=== PATIENT | female | born 1935 | race Caucasian/White ===

== ENCOUNTER 2020-04-07 12:51 | Inpatient (IN) | payer MEDICARE, SELFPAY ==
[2020-04-07] VITALS (27 sets, daily range): BP systolic 115–140; BP diastolic 46–79; PULSE 87–129; RESP 16–604; TEMP 36.9; O2SAT 74–100
--- NOTE | ~2020-04-07 | US_ITS ---
EXAMINATION: US renal BI DATE: 04/13/2020 15:33 INDICATION: Acute on chronic renal failure TECHNIQUE: Multiple grayscale and Doppler ultrasound images of the kidneys were obtained. COMPARISON: None. FINDINGS: The right kidney measures 7.8 x 3.0 x 4.0 cm. The left kidney measures 8.1 x 4.1 x 4.7 cm. The kidneys demonstrate normal parenchymal echogenicity. There is no hydronephrosis. The bladder is i ncompletely distended. IMPRESSION: 1. Mild atrophy of the kidneys. Reviewed, dictated and finalized at location B.
--- NOTE | ~2020-04-07 | XR_ITS ---
EXAMINATION: XR chest 1V portable INDICATION: PICC insertion TECHNIQUE: Portable AP chest at 1207 hours COMPARISON: 04/12/2020 FINDINGS: A right upper extremity PICC has been inserted which ends with its tip at the superior cavo atrial junction. The lungs are free of acute opacities. There is no pleural effusion or pneumothorax. The cardiomediastinal silhouette is stable. There are changes of prior cardiac surgery. IMPRESSION: 1. Right upper extremity with its tip at the superior cavoatrial junction. Reviewed, dictated and finalized at location B.
--- NOTE | ~2020-04-07 | XR_ITS ---
EXAMINATION: XR chest 1V portable DATE: 04/07/2020 14:06 INDICATION: Shortness of breath. Respiratory failure. TECHNIQUE: frontal view of the chest was obtained. COMPARISON: Chest radiograph dated 09/01/2016 FINDINGS: Diffuse increased interstitial pattern throughout both lungs with lower lung predominance. Superimpos ed gradient of hazy airspace opacity in the bilateral lower lobes with blunting at the right costophr enic angle consistent with likely small bilateral layering pleural effusions. No pneumothorax. The ca rdiomediastinal silhouette is normal. Median sternotomy wires and mediastinal surgical clips are seen , likely from prior coronary artery bypass grafting. Cardiac valve repair likely mitral. Three lead p acemaker seen with leads projecting over the expected locations of the right atrial appendage, apex o f the right ventricle and overlying the left ventricle likely having traversed the coronary sinus. IMPRESSION: 1. Bilateral lower lung predominant interstitial and airspace opacities most likely representing pulm onary edema superimposed over small bilateral pleural effusions and associated atelectasis although d ifferential includes pneumonia. Reviewed, dictated and finalized at location B. IMPRESSION: 1. Bilateral lower lung predominant interstitial and airspace opacities most li sabas representing pulmonary edema superimposed over small bilateral pleural eff usions and associated atelectasis although differential includes pneumonia.
--- NOTE | ~2020-04-07 | XR_ITS ---
EXAMINATION: XR chest 2V DATE: 04/12/2020 08:08 INDICATION: Congestive heart failure TECHNIQUE: AP and lateral views of the chest are obtained. COMPARISON: 04/07/2020 FINDINGS: A mild interstitial pattern persists but has improved, particularly in the lung bases. The heart size is normal. Changes of prior cardiac valve surgery are noted. There is no pleural effusion or pneumothorax. A triple lead cardiac pacemaker of the left chest wall ends with leads in expected l ocations. IMPRESSION: 1. Improving pulmonary edema. Reviewed, dictated and finalized at location A.
--- NOTE | 2020-04-07 13:00 | ED.SOB ---
HPI - SOB/Dyspnea History of Present Illness HPI Narrative: SOB all morning. Initially refused transport. She has COPD and CHF, on oxygen all the time at 3 liters. O2 saturation on baseline level in the 70s. No CP, fever. Related Data Home Medications Medication Instructions Recorded Confirmed Humulin R Regular U-100 Insuln See Rx Instructions .ROUTE .COMPLEX 04/07/20 04/07/20 acetaminophen 650 mg PO Q4-6H PRN 04/07/20 04/07/20 acidophilus-pectin, citrus 2 cap PO BID 04/07/20 04/07/20 [Acidophilus Probiotic] albuterol sulfate 2 puff INHALATION Q4H PRN 04/07/20 04/07/20 alum-mag hydroxide-simeth 30 ml PO Q8-10H PRN 04/07/20 04/07/20 amiodarone 200 mg PO BID 04/07/20 04/07/20 apixaban [Eliquis] 2.5 mg PO BID 04/07/20 04/07/20 diltiazem HCl 240 mg PO DAILY 04/07/20 04/07/20 glucagon HCl [Glucagon (HCl) 1 mg SUBCUT Q20M PRN 04/07/20 04/07/20 Emergency Kit] ipratropium-albuterol 3 ml INHALATION Q6H 04/07/20 04/07/20 levothyroxine 75 mcg PO DAILY 04/07/20 04/07/20 metoprolol tartrate 25 mg PO BID 04/07/20 04/07/20 nitroglycerin 0.4 mg SUBLINGUAL Q5MIN PRN 04/07/20 04/07/20 sennosides [Senna Lax] 17.2 mg PO HS PRN 04/07/20 04/07/20 tramadol 50 mg PO Q8H PRN 04/07/20 04/07/20 Allergies Allergy/AdvReac Type Severity Reaction Status Date / Time sulfamethoxazole Allergy Mild Unknown Verified 04/07/20 13:06 trimethoprim Allergy Mild Unknown Verified 04/07/20 13:06 cefazolin Allergy Unknown Unknown Verified 04/07/20 19:39 lisinopril Allergy Unknown Unknown Verified 04/07/20 13:06 metformin Allergy Unknown Unknown Verified 04/07/20 13:06 CEFAZOLIN SODIUM Allergy Unknown Unknown Uncoded 09/02/20 13:06 Contrast Media AdvReac Unknown NAUSEA Uncoded 09/20/18 12:23 Review of Systems Review of Systems: All systems reviewed & are unremarkable except as noted in HPI and below Constitutional: Constitutional: Denies fever(s) Cardiovascular: Cardiovascular: Denies chest pain Respiratory: Respiratory: Reports dyspnea and Reports wheezing Gastrointestinal: Gastrointestinal: Denies abdominal pain, Denies nausea and Denies vomiting Genitourinary: Genitourinary: Denies dysuria Neurologic: Denies confusion [facility] Past Medical History Medical History (Updated 04/08/20 @ 21:36 by Nigel Jurado MD) Atrial fibrillation CHF (congestive heart failure) COPD (chronic obstructive pulmonary disease) HTN (hypertension) Surgical History Surgical History (Updated 04/07/20 @ 13:16 by Nigel Jurado MD) H/O mitral valve repair Family History Family History (Updated 04/07/20 @ 17:44 by Camelia Gaviria RN) Mother Dementia Father Kidney disease Social History Social History (Updated 04/07/20 @ 13:16 by Nigel Jurado MD) Smoking status: Never smoker Alcohol intake: never Substance use: never Substance use type: does not use Living arrangements: correction Spiritual care concerns: No Exam Const: General: alert and ill appearing acutely and chronically Orientation/consciousness: patient oriented x3 HENMT: Head: normal to inspection Resp: Effort & Inspection: labored and tachypneic Auscultation: rales and wheezes Cardio: Rate: regular rate Rhythm: regular rhythm Other: distant GI: GI Palp: Yes Soft to palpation and No Tenderness to palpation present (GI) Skin: General skin exam: normal color Neuro: General: patient oriented x3 and moves all extremities Speech: normal speech Extrem: General: edema bilateral (2-3+) Course Vital Signs Vital signs: Vital Signs Respiratory Rate 24 H 04/07/20 12:56 Blood Pressure 122/79 04/07/20 12:56 Pulse Oximetry 74 L 04/07/20 12:56 Temperature 36.2 C L 04/08/20 14:00 Pulse Rate 100 04/08/20 20:18 Respiratory Rate 20 04/08/20 14:00 Blood Pressure 107/55 L 04/08/20 14:00 Pulse Oximetry 95 04/08/20 21:19 MDM - SOB/Dyspnea MDM Narrative Medical decision making narrative: Likely combined COPD/CHF exacerbation. Cannot
[2020-04-07] MEDS: IPRATROPIUM BR 0.02% INH SOLN 0.5 MG/2.5 ML VIAL INHALATION (13:34)
[2020-04-07] MEDS: ALBUTEROL SULFATE NEB 2.5 MG/0.5 ML INH 5 MG INHALATION (13:34)
[2020-04-07 13:39] LABS: Alveolar/Arterial O2 Gradient 157.7 mmHg; Base Excess ABG 0.1 mEq/l (+/-2.0); Fractional Inspired Oxygen 44 %; HCO3 ABG 22.8 mEq/l (22.0-26.0); Oxygen Content ABG 18.2 %vol (16.0-22.0); Oxygen Saturation ABG 98.6 % (95.0-100.0); Oxyhemoglobin 97.1 % THb (90.0-100.0); PCO2 ABG 31.4 mmHg (35.0-45.0); PO2 ABG 120.2 mmHg (80.0-100.0); PO2 FiO2 Ratio Arterial Blood 2.73 %; Total Hemoglobin 13.2 g/dL (12.0-18.0); pH ABG 7.479 (7.350-7.450)
[2020-04-07 13:40] LABS: Device NASAL CANNULA; Modified Allen's Test Pass; Site Drawn LEFT RADIAL
[2020-04-07] MEDS: FUROSEMIDE INJ 40 MG/4 ML VIAL IV PUSH ×2 (13:44→23:05)
[2020-04-07] MEDS: methylPREDNISolone SOD SUCC 125 MG VIAL IV PUSH (13:45)
[2020-04-07 13:48] LABS: Basophils Absolute Auto 0.1 K/mm3 (0.0-0.1); Basophils Percent Auto 0.6 % (0.2-1.2); Eosinophils Absolute Auto 0.8 K/mm3 (0-0.3); Eosinophils Percent Auto 4.7 % (0-4.4); Hematocrit 35.9 % (37.0-47.0); Hemoglobin 11.6 g/dL (12.0-15.0); Immature Granulocyte Absolute 0.11 K/mm3 (0.00-0.031); Immature Granulocyte Percent A 0.7 % (0-0.5); Lymphocytes Absolute Auto 0.91 K/mm3 (0.9-3.2); Lymphocytes Percent Auto 5.6 % (18.3-44.2); Mean Corpuscular HGB Conc 32.3 g/dl (32-36); Mean Corpuscular Volume 92.8 fl (80-100); Mean Platelet Volume 11.6 fl (7.4-10.4); Monocytes Absolute Auto 0.8 K/mm3 (0.1-0.6); Monocytes Percent Auto 4.7 % (2.6-8.5); Neutrophils Absolute Auto 13.7 K/mm3 (1.3-6.7); Neutrophils Percent Auto 83.7 % (45.5-73.1); Platelet Count Result 147 k/mm3 (150-375); Red Blood Count 3.87 M/mm3 (4.2-5.4); Red Cell Distribution Width 15.9 % (11.5-14.5); White Blood Count 16.4 K/mm3 (4.5-10.0)
[2020-04-07 13:59] LABS: INR 2.1; Partial Thromboplastin Time 36.7 SECONDS (22.3-36.8); Prothrombin Time 22.7 Seconds (11.1-14.7)
[2020-04-07 14:01] LABS: Lactic Acid Reflex 1.5 mmol/L (0.7-2.1)
[2020-04-07 14:07] LABS: Alanine Aminotransferase 18 U/L (4-35); Albumin Level 2.9 g/dL (3.5-5.1); Alkaline Phosphatase 115 U/L (38-126); Anion Gap 6 mmol/L (8-16); Aspartate Amino Transferase 35 U/L (14-36); Bilirubin,Total 1.3 mg/dL (0.2-1.3); Blood Urea Nitrogen 16 mg/dL (7-17); Calcium 8.4 mg/dL (8.4-10.2); Carbon Dioxide 25 mmol/L (22-30); Chloride 101 mmol/L (98-107); Estimated CRCL calculation 42 ml/min; Estimated Glomerular Filt Rate 53; Glucose 96 mg/dL (65-105); Potassium 4.3 mmol/L (3.4-5.0); Sodium 132 mmol/L (137-145)
[2020-04-07 14:12] LABS: NT Pro B Type Natriuretic Pept 8720 PG/ML (5-100); Troponin I 0.024 ng/mL (0.000-0.034)
[2020-04-07 14:15] LABS: Add Urine Microscopic? YES; Appearance Urine Cloudy (Clear); Bacteria Urine Trace /hpf; Bilirubin Urine 1+ (Negative); Blood Urine 3+ (Negative); Budding Yeast Urine Present /hpf; Color Urine Amber (Yellow); Glucose Urine UA Negative (Negative); Ketones Urine Negative (Negative); Leukocyte Esterase Ur 2+ LEU/UL (Negative); Nitrate Urine Negative (Negative); Protein Urine 2+ mg/dL (Negative); RBC Urine >75 /hpf (0-2); Squamous Epithelial Cell Urine Moderate /hpf (Few); WBC Urine >75 /hpf
[2020-04-07 14:19] LABS: CRP 15.4 mg/dL (<1.0)
--- NOTE | 2020-04-07 15:13 | ECG_ITS ---
Measurements Intervals [place] Rate: 55 P: 206 NM: 145 QRS: 28 QRSD: 161 T: 67 QT: 446 QTc: 427 Interpretive Statements ELECTRONIC ATRIAL PACEMAKER ELECTRONIC VENTRICULAR PACEMAKER BASELINE ARTIFACT- I, II, AVR, AVL, AVF NO FURTHER INTERPRETATION IS POSSIBLE ATYPICAL ECG Electronically Signed On 04-07-2020 16:40:40 CDT by Prasad Ohara D.O.
--- NOTE | 2020-04-07 15:19 | PC.NURSE ---
Pharmacy request clarification on order for ceftriaxone administration due to reported cephazolin allergy. Per Dr. Jurado, it is ok to go ahead with the ceftriaxone order. This was verbalized and verified with him and I reported this to the pharmacy at this time.
--- NOTE | 2020-04-07 17:21 | PC.NURSE ---
This patient, Renu Harvey, was admitted to 3 Med Surg Room 330-01 on 04/07/20 @ 1705. Patient/family oriented to hospital policies and general routines including ID bracelet, bed and alarms, visiting hours, pain management, procedures, bathroom and other care routines, personal items, smoking policy, room service/diet, and visiting hours. Valuables list has been completed. Information on how to activate the Rapid Response Team has been discussed. Patient/Family are encouraged to report perceived risks to care and to ask questions if they do not understand what they are told or what they should do.
--- NOTE | 2020-04-07 19:39 | PM.IMHP ---
H&P: HPI History of Present Illness Date/Time: 04/07/20 19:39 Chief complaint: Acute on chronic respiratory failure, CHF exacerba Narrative: This is a pleasant obese Diabetic 84 year old female with known Chronic respiratory failure on 3L of oxygen, COPD, HTN, paroxysmal atrial fibrillation on Amiodarone and Eliquis who presented to the hospital from the sn[facility] after developing worsening shortness of breath this morning, wheezing, and desaturating down to the 80s. The patient was recently hospitalized a few weeks ago after suffering a fall and describes that she still has some right hip discomfort although no one has discovered any fracture. Tonight the patient states that she has a sporadic nonproductive cough but has not had any fevers or chills recently. She denies any chest pain, abdominal pain, nausea, vomiting, diarrhea, or worsening LE swelling. She has had an indwelling Alonso catheter in place since her last hospitalization about 1 month ago although she cannot tell me why this was placed. Routine labs were obtained in the ER tonight which demonstrated leukocytosis of 16,400, grossly abnormal urinalysis, and CXR demonstrated bilateral lower lung predominant interstitial and airspace opacities. The patient was started on antibiotics and swabbed for COVID-19. She denies having any recent COVID testing and denies having pneumonia during her most recent hospitalization. She denies any sick contacts but is at the snf. No other complaints. Review of Systems Review of Systems: All systems reviewed & are unremarkable except as noted in HPI and below PMFSH Past Medical History Medical History Atrial fibrillation CAD (coronary artery disease) CHF (congestive heart failure) COPD (chronic obstructive pulmonary disease) HTN (hypertension) Pacemaker Type 2 diabetes mellitus with hyperglycemia, without long-term current use of insulin Surgical History Surgical History H/O mitral valve repair Family History Family History Mother Dementia Father Kidney disease Social History Social History Smoking status: Never smoker Alcohol intake: never Substance use: never Substance use type: does not use Living arrangements: snf Spiritual care concerns: No Meds Home Medications and Allergies Home Medications Medication Instructions Recorded Confirmed Type Eliquis 2.5 mg PO BID 04/07/20 04/07/20 History Glucagon (HCl) Emergency Kit 1 mg SUBCUT Q20M PRN 04/07/20 04/07/20 History Humulin R Regular U-100 Insuln See Rx Instructions .ROUTE .COMPLEX 04/07/20 04/07/20 History acetaminophen 650 mg PO Q4-6H PRN 04/07/20 04/07/20 History acidophilus-pectin, citrus 2 cap PO BID 04/07/20 04/07/20 History [Acidophilus Probiotic] albuterol sulfate 2 puff INHALATION Q4H PRN 04/07/20 04/07/20 History alum-mag hydroxide-simeth 30 ml PO Q8-10H PRN 04/07/20 04/07/20 History amiodarone 200 mg PO BID 04/07/20 04/07/20 History diltiazem HCl 240 mg PO DAILY 04/07/20 04/07/20 History ipratropium-albuterol 3 ml INHALATION Q6H 04/07/20 04/07/20 History levothyroxine 75 mcg PO DAILY 04/07/20 04/07/20 History metoprolol tartrate 25 mg PO BID 04/07/20 04/07/20 History nitroglycerin 0.4 mg SUBLINGUAL Q5MIN PRN 04/07/20 04/07/20 History sennosides [Senna Lax] 17.2 mg PO HS PRN 04/07/20 04/07/20 History tramadol 50 mg PO Q8H PRN 04/07/20 04/07/20 History ampicillin sodium 1 g IV Q4HR #10 each 04/15/20 Rx ceftriaxone 1 g IV Q24H #10 each 04/15/20 Rx furosemide 40 mg PO DAILY #30 tablet 04/15/20 Rx Allergies Allergy/AdvReac Type Severity Reaction Status Date / Time sulfamethoxazole Allergy Mild Unknown Verified 04/07/20 13:06 trimethoprim Allergy Mild Unknown Verified 04/07/20 13:06 cefazolin Allergy Unknown
[2020-04-07] MEDS: ALBUTEROL SULFATE (*SP) AEROSOL 1 PUFF 2 PUFF INHALATION (20:22)
[2020-04-07 20:30] LABS: Alveolar/Arterial O2 Gradient 176.5 mmHg; Base Excess ABG -3.8 mEq/l (+/-2.0); Fractional Inspired Oxygen 40 %; HCO3 ABG 18.9 mEq/l (22.0-26.0); Oxygen Content ABG 21.6 %vol (16.0-22.0); Oxygen Saturation ABG 95.7 % (95.0-100.0); Oxyhemoglobin 94.2 % THb (90.0-100.0); PCO2 ABG 29.1 mmHg (35.0-45.0); PO2 ABG 75.2 mmHg (80.0-100.0); PO2 FiO2 Ratio Arterial Blood 1.88 %; Total Hemoglobin 16.3 g/dL (12.0-18.0); pH ABG 7.431 (7.350-7.450)
[2020-04-07 20:31] LABS: Device NASAL CANNULA; Modified Allen's Test Pass; Site Drawn LEFT RADIAL
[2020-04-07] MEDS: METOPROLOL TARTRATE 25 MG TABLET PO (22:00)
[2020-04-07] MEDS: APIXABAN 2.5 MG TABLET PO (22:00)
[2020-04-07] MEDS: AMIODARONE HCL 200 MG TABLET PO (22:00)
[2020-04-07] MEDS: traMADol HCL 50 MG TABLET PO (23:26)
[2020-04-07 23:53] LABS: Glucose Point of Care 260 (65-105)
[2020-04-08] VITALS (12 sets, daily range): BP systolic 107–118; BP diastolic 55–59; PULSE 68–104; RESP 20; TEMP 36.2–37.1; O2SAT 95–100
[2020-04-08 00:42] LABS: SARS-CoV-2 RNA PCR Negative
--- NOTE | 2020-04-08 06:06 | PC.NURSE ---
Relocated to room 300 per hospital bed. Belongings sent and verified.
[2020-04-08 07:04] LABS: Basophils Percent Auto 0.3 % (0.2-1.2); Eosinophils Percent Auto 0.1 % (0-4.4); Hemoglobin 10.6 g/dL (12.0-15.0); Immature Granulocyte Absolute 0.06 K/mm3 (0.00-0.031); Immature Granulocyte Percent A 0.5 % (0-0.5); Immature Platelet Fraction Pct 7.2 % (0.9-11.2); Lymphocytes Absolute Auto 0.48 K/mm3 (0.9-3.2); Lymphocytes Percent Auto 3.8 % (18.3-44.2); Mean Corpuscular HGB Conc 33.1 g/dl (32-36); Mean Corpuscular Hemoglobin 30.3 pg (26-34); Mean Corpuscular Volume 91.4 fl (80-100); Mean Platelet Volume 11.4 fl (7.4-10.4); Monocytes Absolute Auto 0.4 K/mm3 (0.1-0.6); Monocytes Percent Auto 2.8 % (2.6-8.5); Neutrophils Absolute Auto 11.8 K/mm3 (1.3-6.7); Neutrophils Percent Auto 92.5 % (45.5-73.1); Platelet Count Result 136 k/mm3 (150-375); Red Cell Distribution Width 15.2 % (11.5-14.5); White Blood Count 12.7 K/mm3 (4.5-10.0)
[2020-04-08 07:18] LABS: Anion Gap 7 mmol/L (8-16); Blood Urea Nitrogen 21 mg/dL (7-17); Calcium 8.1 mg/dL (8.4-10.2); Carbon Dioxide 25 mmol/L (22-30); Chloride 100 mmol/L (98-107); Estimated CRCL calculation 42 ml/min; Estimated Glomerular Filt Rate 53; Glucose 178 mg/dL (65-105); Magnesium 1.6 mg/dL (1.6-2.3); Potassium 3.7 mmol/L (3.4-5.0); Sodium 132 mmol/L (137-145)
[2020-04-08] MEDS: LEVOTHYROXINE SODIUM 75 MCG TABLET PO (07:22)
[2020-04-08 07:55] LABS: Glucose Point of Care 163 (65-105)
[2020-04-08] MEDS: AMIODARONE HCL 200 MG TABLET PO ×2 (08:20→17:55)
[2020-04-08] MEDS: METOPROLOL TARTRATE 25 MG TABLET PO ×2 (08:21→20:18)
[2020-04-08] MEDS: APIXABAN 2.5 MG TABLET PO ×2 (08:21→17:55)
[2020-04-08] MEDS: FUROSEMIDE INJ 40 MG/4 ML VIAL IV PUSH ×2 (08:21→20:18)
[2020-04-08] MEDS: DEXAMETHASONE SOD PHOS INJ 4 MG/ML VIAL 6 MG IV PUSH (08:21)
[2020-04-08] MEDS: traMADol HCL 50 MG TABLET PO (08:30)
[2020-04-08] MEDS: ALBUTEROL SULFATE (*SP) AEROSOL 1 PUFF 2 PUFF INHALATION ×4 (08:42→21:17)
[2020-04-08 09:10] LABS: Glucose Point of Care 153 (65-105)
[2020-04-08] MEDS: ACIDOPHILUS/BULGARICUS CHEWABLE TABLET 1 TABLET PO ×2 (12:01→18:54)
[2020-04-08] MEDS: INSULIN ASPART (*BKC) 100 UNITS/ML SUB-Q ×2 (12:04→17:55)
[2020-04-08 12:33] LABS: Glucose Point of Care 258 (65-105)
--- NOTE | 2020-04-08 13:46 | PM.IMPN ---
Progress Note: A&P Assessment and Plan (1) Acute and chronic respiratory failure: Qualifiers: Respiratory failure complication: hypoxia Qualified Code(s): J96.21 - Acute and chronic respiratory failure with hypoxia Code(s): J96.20 - Acute and chronic respiratory failure, unspecified whether with hypoxia or hypercapnia Status: Acute Assessment and Plan: Continue oxygen breathing treatment and IV ABX pt has underlying COPD. COVID ruled out. Cxr shows BL opacities. [facility] [id number] (2) Catheter-associated urinary tract infection: Qualifiers: Encounter type: initial encounter Indwelling urinary catheter type: indwelling urethral catheter Qualified Code(s): T83.511A - Infection and inflammatory reaction due to indwelling urethral catheter, initial encounter; N39.0 - Urinary tract infection, site not specified Code(s): T83.511A - Infection and inflammatory reaction due to indwelling urethral catheter, initial encounter; N39.0 - Urinary tract infection, site not specified Status: Acute Assessment and Plan: Pt has catheter in situ dark urine collection small amount of blood (3) CAP (community acquired pneumonia): Code(s): J18.9 - Pneumonia, unspecified organism Status: Acute Assessment and Plan: Continue iv rocephin and iv zithromycin. bc and uc pending. Additional Plan Subjective Date/time seen: 04/08/20 13:46 Interval history: 84 year old female with known Chronic respiratory failure on 3L of oxygen, COPD, HTN, paroxysmal atrial fibrillation, DM on Amiodarone and Eliquis who [facility] the [facility] after developing worsening shortness of breath this morning, wheezing, and desaturating down to the 80s. Covid is negative. Still SOB with cough needing 5 liters of oxygen, pt has a ashraf catheter with dark urine little blood stained. Pt complains of her hip pain wanting more stronger pain medications. Review of Systems Review of Systems: All systems reviewed & are unremarkable except as noted in HPI and below Constitutional: Constitutional: Denies excessive sweating, Denies fatigue, Denies frequent falls and Denies headache(s) ENT: Denies headache(s) Cardiovascular: Cardiovascular: Denies chest pain Respiratory: Respiratory: Reports cough, Reports dyspnea and Reports wheezing Gastrointestinal: Gastrointestinal: Denies abdominal pain, Denies nausea and Denies vomiting Genitourinary: Genitourinary: Reports dysuria Comments: catheter in situ Musculoskeletal: Musculoskeletal: Denies no additional musculoskeletal complaints, Denies limited range of motion and Denies numbness Comments: hip pain Neurologic: Denies frequent falls, Denies headache(s), Denies numbness and Denies convulsions Psychiatric: Psychiatric: Denies hallucinations and Denies tactile hallucinations Endocrine: Endocrine: Denies excessive sweating, Denies fatigue and Denies flushing Allergic/Immunologic: Allergic/Immunologic: Denies wheezing Exam Const: General: cooperative and healthy appearing Nutritional Appearance: overweight Orientation/consciousness: oriented to person Other: Mild distress wearing oxygen HENMT: Head: normal to inspection Eyes: Other: Mildly sob at rest with cough Neck: Neck: no JVD Resp: Effort & Inspection: no respiratory distress Auscultation: rhonchi, wheezes and diminished lung sounds Cardio: Rate: regular rate Rhythm: regular rhythm GI: Inspection: normal to inspection GI Palp: No abdominal tenderness, No Guarding due to palpation present (GI) and No Hepatomegaly present Auscultation: normal bowel sounds Urinary Catheter: Urinary Catheter: patent and draining, urine dark and urine red Neuro: General: oriented to person Cognition (Neuro): normal cognition Speech: normal speech Psych: Affect: normal affect Objective Data Vital Signs Vital Signs: Vital Signs - 24 hr 04/07/20 13:50 04/07/20 14:
--- NOTE | 2020-04-08 14:02 | PM.IMPN ---
Subjective Date/time seen: 04/08/20 14:02 Objective Data Vital Signs Vital Signs: Vital Signs - 24 hr 04/07/20 14:15 04/07/20 14:30 04/07/20 14:45 Temperature Pulse Rate 95 89 92 Respiratory Rate 29 H 28 H 32 H Blood Pressure Pulse Oximetry 98 99 04/07/20 15:00 04/07/20 15:01 04/07/20 15:15 Temperature Pulse Rate 89 88 87 Respiratory Rate 25 H 25 H 25 H Blood Pressure 125/56 L Pulse Oximetry 04/07/20 15:30 04/07/20 15:31 04/07/20 15:45 Temperature Pulse Rate 90 91 91 Respiratory Rate 26 H 17 23 H Blood Pressure 130/56 L Pulse Oximetry 04/07/20 16:00 04/07/20 16:01 04/07/20 16:15 Temperature Pulse Rate 93 93 92 Respiratory Rate 32 H 20 30 H Blood Pressure 130/63 Pulse Oximetry 04/07/20 16:30 04/07/20 16:31 04/07/20 16:45 Temperature Pulse Rate 93 98 93 Respiratory Rate 22 H 22 H 23 H Blood Pressure 124/68 Pulse Oximetry 04/07/20 17:05 04/07/20 17:11 04/07/20 19:35 Temperature 36.9 C Pulse Rate 95 93 Respiratory Rate 20 16 Blood Pressure 140/66 124/68 Pulse Oximetry 96 96 04/07/20 20:00 04/07/20 20:20 04/07/20 22:00 Temperature 36.9 C Pulse Rate 88 88 Respiratory Rate 20 Blood Pressure 134/46 L Pulse Oximetry 96 95 04/08/20 00:00 04/08/20 04:00 04/08/20 08:00 Temperature 36.9 C 37.1 C Pulse Rate 92 80 86 Respiratory Rate 20 20 Blood Pressure 118/59 L 114/57 L Pulse Oximetry 97 97 04/08/20 08:44 04/08/20 12:00 Temperature Pulse Rate 95 Respiratory Rate Blood Pressure Pulse Oximetry 95 Intake/Output Intake/Output: Intake & Output 04/05/20 04/06/20 04/07/20 04/08/20 23:59 23:59 23:59 23:59 Intake Total 300 590 Output Total 125 2300 Balance 175 -1710 Meds/Results Medications: Active Medications Generic Name Dose Route Start Last Admin Trade Name Freq PRN Reason Stop Dose Admin Acetaminophen 650 mg 04/07/20 19:45 Tylenol Tablet PO Q4H PRN Mild Pain (1-3) or Fever Al Hydrox/Mg Hydrox/Simethicone 30 ml 04/07/20 19:46 Mylanta PO Q8H PRN Dyspepsia Albuterol 2 puff 04/07/20 20:00 04/08/20 12:13 Proventil Hfa INHALATION 2 puff QIDRT JUAN DIEGO Administration Albuterol 2 puff 04/07/20 19:14 Proventil Hfa INHALATION QIDRT PRN Shortness Of Breath Amiodarone HCl 200 mg 04/07/20 17:00 04/08/20 08:20 Pacerone PO 200 mg BID JUAN DIEGO Administration Apixaban 2.5 mg 04/07/20 17:00 04/08/20 08:21 Eliquis PO 2.5 mg BID JUAN DIEGO Administration Dexamethasone Sodium Phosphate 6 mg 04/08/20 09:00 04/08/20 08:21 Decadron 4 Mg/Ml Inj IV PUSH 04/17/20 09:01 6 mg QAM JUAN DIEGO Administration Dextrose 12.5 gm 04/07/20 19:37 Dextrose 50% Syringe IV PUSH PRN PRN Hypoglycemia Protocol Diltiazem HCl 240 mg 04/08/20 09:00 04/08/20 08:20 Cardizem Cd PO 240 mg DAILY JUAN DIEGO Administration Furosemide 40 mg 04/07/20 21:00 04/08/20 08:21 Lasix Inj IV PUSH 40 mg Q12HR JUAN DIEGO Administration Glucagon 1 mg 04/07/20 19:37 Glucagon For Inj IM PRN PRN Hypoglycemia Protocol Glucose 15 gm 04/07/20 19:37 Glutose 15 PO PRN PRN Hypoglycemia Protocol Ceftriaxone Sodium/Dextrose 1 gm in 50 mls @ 100 mls/hr 04/08/20 14:00 Rocephin 1 Gm/D5w 50 Ml IVPB Q24H JUAN DIEGO Azithromycin 500 mg in 250 mls @ 250 mls/hr 04/08/20 14:00 04/08/20 13:41 Zithromax IVPB 250 mls/hr Q24H JUAN DIEGO Administration Dextrose 1,000 mls @ 100 mls/hr 04/07/20 19:37 Dextrose 5% 1,000 Ml IVPB PRN PRN Hypoglycemia Protocol Sodium Chloride 1,000 mls @ 70 mls/hr 04/08/20 14:00 Normal Saline Iv IV CONT .[id number] JUAN DIEGO Insulin Aspart 3 - 6 units 04/08/20 08:00 04/08/20 12:04 Novolog SUB-Q 4 units TIDWM JUAN DIEGO Administration Protocol Lactobacillus Acidophilus 1 tablet 04/08/20 09:00 04/08/20 12:01 Lactinex Chewable Tablet PO 05/08/20
[2020-04-08] MEDS: SODIUM CHLORIDE 0.9% IV 1,000 ML 70 ML IV CONT (16:25)
[2020-04-08 17:44] LABS: Glucose Point of Care 239 (65-105)
[2020-04-08] MEDS: ZOLPIDEM TARTRATE 5 MG TABLET PO (21:36)
[2020-04-08 21:39] LABS: Glucose Point of Care 234 (65-105)
[2020-04-09] VITALS (14 sets, daily range): BP systolic 120–122; BP diastolic 56–60; PULSE 80–98; RESP 20–22; TEMP 36.5–36.7; O2SAT 91–98
[2020-04-09] MEDS: LEVOTHYROXINE SODIUM 75 MCG TABLET PO (05:40)
[2020-04-09] MEDS: ALBUTEROL SULFATE (*SP) AEROSOL 1 PUFF 2 PUFF INHALATION ×4 (07:58→19:55)
[2020-04-09] MEDS: ACIDOPHILUS/BULGARICUS CHEWABLE TABLET 1 TABLET PO ×2 (08:10→16:18)
[2020-04-09] MEDS: METOPROLOL TARTRATE 25 MG TABLET PO ×2 (08:10→20:17)
[2020-04-09] MEDS: APIXABAN 2.5 MG TABLET PO ×2 (08:10→16:18)
[2020-04-09] MEDS: AMIODARONE HCL 200 MG TABLET PO ×2 (08:10→16:18)
[2020-04-09] MEDS: DEXAMETHASONE SOD PHOS INJ 4 MG/ML VIAL 6 MG IV PUSH (08:11)
[2020-04-09] MEDS: FUROSEMIDE INJ 40 MG/4 ML VIAL IV PUSH (08:12)
[2020-04-09 09:14] LABS: Glucose Point of Care 156 (65-105)
[2020-04-09 11:48] LABS: Glucose Point of Care 196 (65-105)
--- NOTE | 2020-04-09 13:16 | PM.IMPN ---
Progress Note: A&P Assessment and Plan (1) Acute and chronic respiratory failure: Qualifiers: Respiratory failure complication: unspecified whether with hypoxia or hypercapnia Qualified Code(s): J96.20 - Acute and chronic respiratory failure, unspecified whether with hypoxia or hypercapnia Code(s): J96.20 - Acute and chronic respiratory failure, unspecified whether with hypoxia or hypercapnia Status: Acute Assessment and Plan: Continue oxygen breathing treatment and IV ABX pt has underlying COPD. COVID ruled out. Cxr shows BL opacities. [facility] [id number]. Pt is down to 3 liters of oxygen now, CXR ordered for radha, IV lasix and IV fluids stopped today (2) Catheter-associated urinary tract infection: Qualifiers: Indwelling urinary catheter type: indwelling urethral catheter Encounter type: initial encounter Qualified Code(s): T83.511A - Infection and inflammatory reaction due to indwelling urethral catheter, initial encounter; N39.0 - Urinary tract infection, site not specified Code(s): T83.511A - Infection and inflammatory reaction due to indwelling urethral catheter, initial encounter; N39.0 - Urinary tract infection, site not specified Status: Acute Assessment and Plan: Pt has catheter in situ dark urine collection. Entercoccus species awaiting sensitivities ? contamination (3) CAP (community acquired pneumonia): Code(s): J18.9 - Pneumonia, unspecified organism Status: Acute Assessment and Plan: Continue iv rocephin and iv zithromycin.. Entercoccus species awaiting sensitivities ? contamination Additional Plan Subjective Date/time seen: 04/09/20 13:16 Interval history: 84 year old female with known Chronic respiratory failure on 3L of oxygen, COPD, HTN, paroxysmal atrial fibrillation, DM on Amiodarone and Eliquis who [facility] after developing worsening shortness of breath this morning, wheezing, and desaturating down to the 80s. Covid is negative. Still SOB with cough. Pt is now on 3 liters of oxygen. ongoing wet cough and wheeze. Review of Systems Review of Systems: All systems reviewed & are unremarkable except as noted in HPI and below Constitutional: Constitutional: Denies excessive sweating, Denies fatigue, Denies frequent falls and Denies headache(s) ENT: Denies headache(s) Cardiovascular: Cardiovascular: Denies chest pain and Reports dyspnea Respiratory: Respiratory: Reports cough, Reports dyspnea and Denies wheezing Gastrointestinal: Gastrointestinal: Denies abdominal pain, Denies nausea and Denies vomiting Genitourinary: Genitourinary: Reports dysuria Musculoskeletal: Musculoskeletal: Denies no additional musculoskeletal complaints, Denies limited range of motion and Denies numbness Neurologic: Denies frequent falls, Denies headache(s), Denies numbness and Denies convulsions Psychiatric: Psychiatric: Denies hallucinations and Denies tactile hallucinations Exam Const: General: cooperative and other (elderly tired ) Orientation/consciousness: oriented to person Other: Mild distress wearing oxygen HENMT: Head: normal to inspection Eyes: Other: Mildly sob at rest with cough Neck: Neck: no JVD Resp: Auscultation: rhonchi, wheezes and diminished lung sounds Cardio: Rate: regular rate Rhythm: regular rhythm GI: Inspection: normal to inspection Auscultation: normal bowel sounds Urinary Catheter: Urinary Catheter: patent and draining and urine dark Neuro: General: oriented to person Cognition (Neuro): normal cognition Speech: normal speech Psych: Affect: normal affect Objective Data Vital Signs Vital Signs: Vital Signs - 24 hr 04/08/20 14:00 04/08/20 16:00 04/08/20 20:00 Temperature 36.2 C L Pulse Rate 68 69 80 Respiratory Rate 20 Blood Pressure 107/55 L Pulse Oximetry 97 04/08/20 20:18 04/08/20 21:19 04/08/20 22:00 Temperature 36.9 C Pulse Ra
[2020-04-09 17:34] LABS: Glucose Point of Care 271 (65-105)
[2020-04-09] MEDS: INSULIN ASPART (*BKC) 100 UNITS/ML SUB-Q (17:54)
[2020-04-09] MEDS: ZOLPIDEM TARTRATE 5 MG TABLET PO (20:17)
[2020-04-10] VITALS (17 sets, daily range): BP systolic 113–131; BP diastolic 46–64; PULSE 68–89; RESP 18–20; TEMP 36.3–36.9; O2SAT 93–97
[2020-04-10 02:04] LABS: Glucose Point of Care 271 (65-105)
[2020-04-10] MEDS: LEVOTHYROXINE SODIUM 75 MCG TABLET PO (05:19)
[2020-04-10 06:19] LABS: Hematocrit 32.7 % (37.0-47.0); Hemoglobin 10.5 g/dL (12.0-15.0); Mean Corpuscular HGB Conc 32.1 g/dl (32-36); Mean Corpuscular Hemoglobin 29.8 pg (26-34); Mean Corpuscular Volume 92.9 fl (80-100); Mean Platelet Volume 12.5 fl (7.4-10.4); Platelet Count Result 121 k/mm3 (150-375); Red Blood Count 3.52 M/mm3 (4.2-5.4); Red Cell Distribution Width 14.9 % (11.5-14.5)
[2020-04-10 06:51] LABS: Anion Gap 7 mmol/L (8-16); Blood Urea Nitrogen 34 mg/dL (7-17); Carbon Dioxide 27 mmol/L (22-30); Chloride 101 mmol/L (98-107); Estimated CRCL calculation 36 ml/min; Estimated Glomerular Filt Rate 43; Glucose 196 mg/dL (65-105); Sodium 135 mmol/L (137-145)
[2020-04-10 07:55] LABS: Potassium 3.2 mmol/L (3.4-5.0)
[2020-04-10] MEDS: ALBUTEROL SULFATE (*SP) AEROSOL 1 PUFF 2 PUFF INHALATION ×4 (08:11→20:05)
[2020-04-10 08:16] LABS: Glucose Point of Care 176 (65-105)
[2020-04-10] MEDS: AMIODARONE HCL 200 MG TABLET PO ×2 (08:35→17:27)
[2020-04-10] MEDS: APIXABAN 2.5 MG TABLET PO ×2 (08:36→17:28)
[2020-04-10] MEDS: DEXAMETHASONE SOD PHOS INJ 4 MG/ML VIAL 6 MG IV PUSH (08:36)
[2020-04-10] MEDS: FUROSEMIDE INJ 40 MG/4 ML VIAL 20 MG IV PUSH (08:37)
[2020-04-10] MEDS: ACIDOPHILUS/BULGARICUS CHEWABLE TABLET 1 TABLET PO ×2 (08:37→17:27)
[2020-04-10] MEDS: METOPROLOL TARTRATE 25 MG TABLET PO ×2 (08:37→20:15)
[2020-04-10] MEDS: AMPICILLIN SULB 3 GM/NS 100 ML 3 GM/100 ML VIAL IVPB ×4 (09:11→23:32)
--- NOTE | 2020-04-10 11:09 | PM.IMPN ---
Progress Note: A&P Assessment and Plan (1) Catheter-associated urinary tract infection: Qualifiers: Indwelling urinary catheter type: indwelling urethral catheter Encounter type: initial encounter Qualified Code(s): T83.511A - Infection and inflammatory reaction due to indwelling urethral catheter, initial encounter; N39.0 - Urinary tract infection, site not specified Code(s): T83.511A - Infection and inflammatory reaction due to indwelling urethral catheter, initial encounter; N39.0 - Urinary tract infection, site not specified Status: Acute Assessment and Plan: Enterococcus in urine and blood Switch from ceftriaxone to Unasyn 04/10 Voiding trial 04/10, straight cath PRN (urology to see if unable to void) (2) CHF (congestive heart failure): Qualifiers: Heart failure chronicity: acute Heart failure type: unspecified Qualified Code(s): I50.9 - Heart failure, unspecified Code(s): I50.9 - Heart failure, unspecified Status: Acute Assessment and Plan: Echo Diuresis Fluid restriction (3) Acute and chronic respiratory failure: Qualifiers: Respiratory failure complication: unspecified whether with hypoxia or hypercapnia Qualified Code(s): J96.20 - Acute and chronic respiratory failure, unspecified whether with hypoxia or hypercapnia Code(s): J96.20 - Acute and chronic respiratory failure, unspecified whether with hypoxia or hypercapnia Status: Acute Assessment and Plan: SARS-CoV-2 negative Likely due to CHF Continue diuresis while monitoring renal function (04/10 up from 1.0 to 1.2) (4) Bacteremia due to Enterococcus: Code(s): R78.81 - Bacteremia; B95.2 - Enterococcus as the cause of diseases classified elsewhere Status: Acute Assessment and Plan: Clinically due to catheter-associated UTI Ampicillin-sulbactam started 04/10, day 1 (5) Hypokalemia: Code(s): E87.6 - Hypokalemia Status: Acute Assessment and Plan: Likely due to diuresis Supplement F/u lab (6) Hyponatremia: Code(s): E87.1 - Hypo-osmolality and hyponatremia Status: Acute Assessment and Plan: Likely due to CHF Stop IVF Restrict fluids F/u lab Subjective Date/time seen: 04/10/20 11:09 Interval history: Admitted 04/08 with fatigue, weakness, sob. CXR with bilateral LL infiltrates, small effusions. Indwelling catheter for about 3 weeks due to urinary retention. Hx recent UTI. 04/10: Denied pain, except for aching in LE joints relieved by analgesics (chronic). Tolerated diet. Feeling a little better. Constipated. Review of Systems Review of Systems: All systems reviewed & are unremarkable except as noted in HPI and below Exam Narrative: Exam Narrative: HEENT: EOMI, PERRL, sclerae nonicteric, pharyngeal mucosa pink and intact NECK: No JVD CHEST: Bilateral LL crackles. Normal effort. HEART: NL S1/S2, regular, no murmur ABDOMEN: BS+, soft, nontender, no mass, no bruits EXTREMITIES: No cyanosis, 3+ leg edema with 1+ pitting NEUROLOGIC: CN intact and symmetric to inspection. MUSCULOSKELETAL: Tone and strength symmetric. PSYCH: Alert. Oriented to person, place, and time. Objective Data Vital Signs Vital Signs: Vital Signs - 24 hr 04/09/20 12:00 04/09/20 14:00 04/09/20 16:00 Temperature 98.0 F Pulse Rate 92 82 80 Respiratory Rate 22 H Blood Pressure 120/60 Pulse Oximetry 97 04/09/20 20:00 04/09/20 20:02 04/09/20 20:17 Temperature Pulse Rate 85 80 98 Respiratory Rate Blood Pressure Pulse Oximetry 94 04/09/20 21:51 04/09/20 22:00 04/10/20 00:00 Temperature 97.7 F Pulse Rate 81 81 89 Respiratory Rate 20 20 Blood Pressure 122/56 L Pulse Oximetry 94 95 04/10/20 04:00 04/10/20 06:00 04/10/20 08:00 Temperature 97.4 F L Pulse Rate 86 80 84 Respiratory Rate 20 Blood Pressure 131/64 Pulse Oximetry 93 04/10/20 08:09 04/10/20 08:35 04/10/20 08:37
[2020-04-10] MEDS: POTASSIUM CHLORIDE 20 MEQ TABLET 40 MEQ PO (12:01)
[2020-04-10] MEDS: INSULIN ASPART (*BKC) 100 UNITS/ML SUB-Q ×2 (12:06→17:57)
[2020-04-10 12:27] LABS: Glucose Point of Care 265 (65-105)
[2020-04-10 13:09] LABS: SARS-CoV-2 RNA PCR Negative
--- NOTE | 2020-04-10 13:54 | PCOTNOTE ---
OT attempted treatment this afternoon. Carmen reports she was finishing lunch and asked OT to come another time.
[2020-04-10] MEDS: POTASSIUM CHLORIDE 20 MEQ PACKET (FOR LIQUID) PO (17:28)
[2020-04-10 17:56] LABS: Glucose Point of Care 289 (65-105)
[2020-04-10] MEDS: SENNOSIDES 8.6 MG TABLET PO (20:15)
[2020-04-10] MEDS: ZOLPIDEM TARTRATE 5 MG TABLET PO (20:16)
[2020-04-10 21:43] LABS: Glucose Point of Care 273 (65-105)
[2020-04-11] VITALS (16 sets, daily range): BP systolic 123–138; BP diastolic 56–60; PULSE 78–97; RESP 18–20; TEMP 36.2–36.8; O2SAT 92–99
[2020-04-11] MEDS: AMPICILLIN SULB 3 GM/NS 100 ML 3 GM/100 ML VIAL IVPB (05:33)
[2020-04-11] MEDS: LEVOTHYROXINE SODIUM 75 MCG TABLET PO (05:35)
[2020-04-11 06:24] LABS: Hematocrit 32.5 % (37.0-47.0); Hemoglobin 10.5 g/dL (12.0-15.0); Mean Corpuscular HGB Conc 32.3 g/dl (32-36); Mean Corpuscular Hemoglobin 30.1 pg (26-34); Mean Corpuscular Volume 93.1 fl (80-100); Mean Platelet Volume 12.5 fl (7.4-10.4); Platelet Count Result 128 k/mm3 (150-375); Red Blood Count 3.49 M/mm3 (4.2-5.4); Red Cell Distribution Width 14.9 % (11.5-14.5); White Blood Count 9.4 K/mm3 (4.5-10.0)
[2020-04-11 06:58] LABS: Anion Gap 8 mmol/L (8-16); Blood Urea Nitrogen 35 mg/dL (7-17); Carbon Dioxide 27 mmol/L (22-30); Chloride 102 mmol/L (98-107); Estimated CRCL calculation 47 ml/min; Estimated Glomerular Filt Rate 60; Glucose 240 mg/dL (65-105); Magnesium 1.8 mg/dL (1.6-2.3); Potassium 3.4 mmol/L (3.4-5.0); Sodium 137 mmol/L (137-145)
[2020-04-11] MEDS: ALBUTEROL SULFATE (*SP) AEROSOL 1 PUFF 2 PUFF INHALATION ×4 (08:19→19:18)
[2020-04-11 08:57] LABS: Glucose Point of Care 188 (65-105)
[2020-04-11] MEDS: ACIDOPHILUS/BULGARICUS CHEWABLE TABLET 1 TABLET PO ×2 (08:57→17:55)
[2020-04-11] MEDS: SENNOSIDES 8.6 MG TABLET PO ×2 (08:57→20:17)
[2020-04-11] MEDS: CANAGLIFLOZIN 100 MG TABLET 200 MG PO (08:57)
[2020-04-11] MEDS: APIXABAN 2.5 MG TABLET PO ×2 (08:58→17:54)
[2020-04-11] MEDS: METOPROLOL TARTRATE 25 MG TABLET PO ×2 (08:58→20:18)
[2020-04-11] MEDS: AMIODARONE HCL 200 MG TABLET PO ×2 (08:58→17:53)
[2020-04-11] MEDS: POTASSIUM CHLORIDE 20 MEQ PACKET (FOR LIQUID) PO ×2 (08:59→17:53)
[2020-04-11] MEDS: INSULIN GLARGINE (*BKC) 100 UNITS/ML 8 UNITS SUB-Q (09:00)
[2020-04-11] MEDS: FUROSEMIDE INJ 40 MG/4 ML VIAL 20 MG IV PUSH ×2 (09:02→17:55)
--- NOTE | 2020-04-11 10:58 | PM.IMPN ---
Progress Note: A&P Assessment and Plan (1) Catheter-associated urinary tract infection: Qualifiers: Encounter type: initial encounter Indwelling urinary catheter type: indwelling urethral catheter Qualified Code(s): T83.511A - Infection and inflammatory reaction due to indwelling urethral catheter, initial encounter; N39.0 - Urinary tract infection, site not specified Code(s): T83.511A - Infection and inflammatory reaction due to indwelling urethral catheter, initial encounter; N39.0 - Urinary tract infection, site not specified Status: Acute Assessment and Plan: Enterococcus in urine and blood Switch from ceftriaxone to Unasyn 04/10, Ampicillin 04/11 DAY #2 Voiding trial 04/10 SUCCESSFUL (2) CHF (congestive heart failure): Qualifiers: Heart failure chronicity: acute Heart failure type: unspecified Qualified Code(s): I50.9 - Heart failure, unspecified Code(s): I50.9 - Heart failure, unspecified Status: Acute Assessment and Plan: Echo 04/12 Diuresis with furosemide 20mg IV BID (04/10 I/O still positive, but BUN/creat 35/0.9) Fluid restriction Monitor renal function (3) Acute and chronic respiratory failure: Qualifiers: Respiratory failure complication: unspecified whether with hypoxia or hypercapnia Qualified Code(s): J96.20 - Acute and chronic respiratory failure, unspecified whether with hypoxia or hypercapnia Code(s): J96.20 - Acute and chronic respiratory failure, unspecified whether with hypoxia or hypercapnia Status: Acute Assessment and Plan: SARS-CoV-2 negative Likely due to CHF Continue diuresis while monitoring renal function (04/10 up from 1.0 to 1.2, 04/11 creat 0.9) (4) Bacteremia due to Enterococcus: Code(s): R78.81 - Bacteremia; B95.2 - Enterococcus as the cause of diseases classified elsewhere Status: Acute Assessment and Plan: Clinically due to catheter-associated UTI Ampicillin-sulbactam started 04/10, day 1 (5) Hypokalemia: Code(s): E87.6 - Hypokalemia Status: Acute Assessment and Plan: Likely due to diuresis Supplement F/u lab (6) Hyponatremia: Code(s): E87.1 - Hypo-osmolality and hyponatremia Status: Acute Assessment and Plan: Likely due to CHF Stop IVF 04/10 Restrict fluids F/u lab (7) Type 2 diabetes mellitus with hyperglycemia, without long-term current use of insulin: Code(s): E11.65 - Type 2 diabetes mellitus with hyperglycemia Status: Acute Assessment and Plan: Intolerant to metformin 04/11 Add basal Lantus 8 U daily and Invokana 200mg daily Continue SSI A1c and Lipid panel 04/12 Subjective Date/time seen: 04/11/20 10:58 Interval history: Admitted 04/08 with fatigue, weakness, sob. CXR with bilateral LL infiltrates, small effusions. Indwelling catheter for about 3 weeks due to urinary retention. Hx recent UTI. 04/11: Urinary frequency with dysuria. Denied other pain, except for aching in LE joints relieved by analgesics (chronic). Tolerated diet. Feeling a little better. Constipated still. Review of Systems Review of Systems: All systems reviewed & are unremarkable except as noted in HPI and below Exam Narrative: Exam Narrative: HEENT: EOMI, PERRL, sclerae nonicteric, pharyngeal mucosa pink and intact NECK: No JVD CHEST: Decr BS at bases. Normal effort. HEART: NL S1/S2, regular, no murmur ABDOMEN: BS+, soft, nontender, no mass, no bruits EXTREMITIES: No cyanosis, 3+ leg edema with 1+ pitting NEUROLOGIC: CN intact and symmetric to inspection. MUSCULOSKELETAL: Tone and strength symmetric. PSYCH: Alert. Oriented to person, place, and time. Objective Data Vital Signs Vital Signs: Vital Signs - 24 hr 04/10/20 12:00 04/10/20 12:56 04/10/20 14:00 Temperature 98.4 F Pulse Rate 88 80 84 Respiratory Rate 20 18 Blood Pressure 113/46 L Pulse Oximetry 97 04/10/20 16:00 04/10/20 17:27 04/10/20 20:00 Tem
[2020-04-11] MEDS: AMPICILLIN 1 GM/NS 50 ML 1 GM/50 ML BAG IVPB ×3 (12:36→23:48)
[2020-04-11] MEDS: POTASSIUM CHLORIDE 20 MEQ TABLET 40 MEQ PO (12:40)
[2020-04-11] MEDS: INSULIN ASPART (*BKC) 100 UNITS/ML SUB-Q ×2 (12:40→17:56)
[2020-04-11 12:54] LABS: Glucose Point of Care 221 (65-105)
--- NOTE | 2020-04-11 16:05 | PCPTNOTE ---
Woke patient up, then, she refused treatment this session due to falling back to sleep.
[2020-04-11] MEDS: SENNOSIDES 8.6 MG TABLET 17.2 MG PO (20:17)
[2020-04-11] MEDS: traMADol HCL 50 MG TABLET PO (20:17)
[2020-04-12] VITALS (16 sets, daily range): BP systolic 114–150; BP diastolic 56–65; PULSE 77–101; RESP 16–22; TEMP 36.1–36.7; O2SAT 91–98
--- NOTE | 2020-04-12 | ECHO_ITS ---
Patient Info Name: Renu Harvey Age: 84 years : 1935 Gender: Female Ht: 67 in Wt: 182 lbs BSA: 2.00 m2 HR: 80 bpm BP: 155 / 74 mmHg Heart Rhythm: Sinus Rhythm Technical Quality: Good Exam Date: 04/12/2020 9:57 AM Exam Location: [facility] Patient Status: Inpatient Admit Date: 04/07/2020 Staff Ordering Physician: Lázaro Young MD Software Quality Specialist: Solo Hadley RDCS, RT Attending Provider: Suzi Valerio PA-C Referring Physician: Hector MORENO; Exam Type: CA echo doppler color flow Study Info Indications I50.9 - Heart failure, unspecified Complete two-dimensional, color flow and Doppler transthoracic echocardiogram is performed. Strain analysis performed. Summary 1. Complete two-dimensional, color flow and Doppler transthoracic echocardiogram is performed. 2. Strain analysis performed. 3. Left ventricular chamber dimension is normal. 4. Left ventricular systolic function is normal, estimated at 60-65%. 5. There is mildly increased left ventricular wall thickness. 6. The left ventricular diastolic function is abnormal. 7. Global longitudinal strain is abnormal at -13 %. 8. Right ventricular chamber dimension is severely enlarged. 9. Right ventricular systolic function is reduced. 10. Left atrial chamber dimension is severely enlarged. 11. Right atrial chamber dimension is severely enlarged. 12. 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 13. There is mild regurgitation of the annuloplasty ring prosthetic mitral valve. 14. There is moderate to severe tricuspid valve regurgitation. 15. Moderate pulmonary hypertension, estimated pulmonary arterial systolic pressure is 54 mmHg. 16. Moderate tricuspid valve vegetation visualized. 17. The tricuspid valve is abnormal. There appears to be a moderate sized vegetation associated with the tricuspid valve. This may also be attached to/associated with the pacemaker leads themselves. 18. There is mild pulmonic regurgitation. 19. Dilated inferior vena cava with no collapse upon inspiration consistent with elevated right atrial pressure, 15 mmHg. 20. Transesophageal echocardiogram is recommended. 21. Result of this finding was called to the nurse at 3:19 p.m. Left Ventricle Left ventricular chamber dimension is normal. Left ventricular systolic function is normal, estimated at 60-65%. There is mildly increased left ventricular wall thickness. The left ventricular diastolic function is abnormal. Global longitudinal strain is abnormal at -13 %. Right Ventricle Right ventricular chamber dimension is severely enlarged. Right ventricular systolic function is reduced. Left Atria Left atrial chamber dimension is severely enlarged. Right Atria Right atrial chamber dimension is severely enlarged. Atrial Septum Intact interatrial septum visualized by color flow imaging. Aortic Valve The aortic valve is trileaflet. There is mild aortic valve sclerosis. There is no aortic valve stenosis. There is trace aortic valve regurgitation. Pulmonic Valve The pulmonic valve is normal. There is no pulmonic valve stenosis. There is mild pulmonic regurgitation. 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 There is mild regurgitation of the annuloplasty ring prosthetic mitral valve. Tricuspid Valve There is no significant tricuspid valve stenosis. There is moderate to severe tricuspid valve regurgitation. Moderate pulmonary hypertensi
[2020-04-12 04:37] LABS: Glucose Point of Care 183 (65-105)
[2020-04-12 04:37] LABS: Glucose Point of Care 217 (65-105)
[2020-04-12] MEDS: AMPICILLIN 1 GM/NS 50 ML 1 GM/50 ML BAG IVPB ×3 (05:34→17:37)
[2020-04-12] MEDS: LEVOTHYROXINE SODIUM 75 MCG TABLET PO (05:34)
[2020-04-12 06:20] LABS: Hematocrit 34.7 % (37.0-47.0); Mean Corpuscular HGB Conc 31.7 g/dl (32-36); Mean Corpuscular Hemoglobin 29.8 pg (26-34); Mean Platelet Volume 12.4 fl (7.4-10.4); Platelet Count Result 155 k/mm3 (150-375); Red Blood Count 3.69 M/mm3 (4.2-5.4); Red Cell Distribution Width 15.4 % (11.5-14.5); White Blood Count 12.2 K/mm3 (4.5-10.0)
[2020-04-12 06:33] LABS: Anion Gap 4 mmol/L (8-16); Blood Urea Nitrogen 34 mg/dL (7-17); Calcium 8.2 mg/dL (8.4-10.2); Carbon Dioxide 30 mmol/L (22-30); Chloride 105 mmol/L (98-107); Cholesterol 151 mg/dL (0-200); Estimated CRCL calculation 42 ml/min; Estimated Glomerular Filt Rate 53; Glucose 151 mg/dL (65-105); HDL Direct 35 mg/dL; Sodium 139 mmol/L (137-145); Triglycerides 105 mg/dL (<150)
[2020-04-12 06:44] LABS: LDL Cholesterol Direct 96 mg/dL
[2020-04-12 07:02] LABS: Hemoglobin A1C 6.7 % (<5.7)
[2020-04-12] MEDS: ALBUTEROL SULFATE (*SP) AEROSOL 1 PUFF 2 PUFF INHALATION ×2 (08:17→11:37)
[2020-04-12 08:59] LABS: Glucose Point of Care 129 (65-105)
[2020-04-12] MEDS: POTASSIUM CHLORIDE 20 MEQ PACKET (FOR LIQUID) PO (09:13)
[2020-04-12] MEDS: SENNOSIDES 8.6 MG TABLET PO ×2 (09:14→19:56)
[2020-04-12] MEDS: CANAGLIFLOZIN 100 MG TABLET 200 MG PO (09:14)
[2020-04-12] MEDS: APIXABAN 2.5 MG TABLET PO ×2 (09:14→17:31)
[2020-04-12] MEDS: ACIDOPHILUS/BULGARICUS CHEWABLE TABLET 1 TABLET PO ×2 (09:14→17:31)
[2020-04-12] MEDS: METOPROLOL TARTRATE 25 MG TABLET PO ×2 (09:15→19:55)
[2020-04-12] MEDS: FUROSEMIDE INJ 40 MG/4 ML VIAL 20 MG IV PUSH (09:15)
[2020-04-12] MEDS: AMIODARONE HCL 200 MG TABLET PO ×2 (09:15→17:31)
[2020-04-12] MEDS: INSULIN GLARGINE (*BKC) 100 UNITS/ML 8 UNITS SUB-Q (09:19)
[2020-04-12 13:08] LABS: Glucose Point of Care 145 (65-105)
--- NOTE | 2020-04-12 13:08 | WPDINFPN2 ---
Progress Note: A&P Assessment and Plan (1) Bacteremia due to Enterococcus: Code(s): R78.81 - Bacteremia; B95.2 - Enterococcus as the cause of diseases classified elsewhere Status: Acute Assessment and Plan: 1. Enterococcus bacteremia, with infection, due to CA-UTI. 2. Recent (3 weeks) hip fracture with urinary retention, Alonso now out 3. DM 4. MV repair 05/25 at E 5. Ancef allergy REC Renal US. (antibiotic #3) Amp #2, at least 3 days more. Redo BCs. No aminoglycoside at present. Subjective Date/time seen: 04/12/20 13:08 Objective Data Vital Signs Vital Signs: Vital Signs - 24 hr 04/11/20 15:37 04/11/20 16:00 04/11/20 17:53 Temperature 36.2 C L Pulse Rate 80 80 86 Respiratory Rate 18 Blood Pressure 123/60 Pulse Oximetry 99 04/11/20 19:21 04/11/20 20:00 04/11/20 20:18 Temperature Pulse Rate 84 84 Respiratory Rate Blood Pressure Pulse Oximetry 95 04/11/20 21:13 04/11/20 21:55 04/12/20 00:00 Temperature 36.8 C Pulse Rate 86 79 80 Respiratory Rate 18 Blood Pressure 138/56 L Pulse Oximetry 92 97 04/12/20 01:21 04/12/20 04:00 04/12/20 06:00 Temperature 36.7 C Pulse Rate 80 77 79 Respiratory Rate 18 Blood Pressure 150/59 H Pulse Oximetry 93 98 04/12/20 08:00 04/12/20 08:17 04/12/20 09:15 Temperature Pulse Rate 85 80 100 Respiratory Rate 18 Blood Pressure Pulse Oximetry 94 Intake/Output Intake/Output: Intake & Output 04/09/20 04/10/20 04/11/20 04/12/20 23:59 23:59 23:59 23:59 Intake Total 2460 1060 1560 560 Output Total 1450 850 450 Balance 7055 769 4550 560 Meds/Results Medications: Active Medications Generic Name Dose Route Start Last Admin Trade Name Freq PRN Reason Stop Dose Admin Acetaminophen 650 mg 04/07/20 19:45 Tylenol Tablet PO Q4H PRN Mild Pain (1-3) or Fever Hydrocodone Bitart/Acetaminophen 1 tab 04/08/20 14:02 04/09/20 15:26 [place] 7.5-325 Mg PO 1 tab Q4H PRN Administration Pain Rated 7-10 Al Hydrox/Mg Hydrox/Simethicone 30 ml 04/07/20 19:46 Mylanta PO Q8H PRN Dyspepsia Albuterol 2 puff 04/07/20 20:00 04/12/20 11:37 Proventil Hfa INHALATION 2 puff QIDRT JUAN DIEGO Administration Albuterol 2 puff 04/07/20 19:14 Proventil Hfa INHALATION QIDRT PRN Shortness Of Breath Amiodarone HCl 200 mg 04/07/20 17:00 04/12/20 09:15 Pacerone PO 200 mg BID JUAN DIEGO Administration Apixaban 2.5 mg 04/07/20 17:00 04/12/20 09:14 Eliquis PO 2.5 mg BID JUAN DIEGO Administration Canagliflozin 200 mg 04/11/20 08:00 04/12/20 09:14 Invokana PO 200 mg DAILY@0800 JUAN DIEGO Administration Dextrose 12.5 gm 04/07/20 19:37 Dextrose 50% Syringe IV PUSH PRN PRN Hypoglycemia Protocol Diltiazem HCl 240 mg 04/08/20 09:00 04/12/20 09:14 Cardizem Cd PO 240 mg DAILY JUAN DIEGO Administration Furosemide 20 mg 04/11/20 09:00 04/12/20 09:15 Lasix Inj IV PUSH 20 mg BID JUAN DIEGO Administration Glucagon 1 mg 04/07/20 19:37 Glucagon For Inj IM PRN PRN Hypoglycemia Protocol Glucose 15 gm 04/07/20 19:37 Glutose 15 PO PRN PRN Hypoglycemia Protocol Dextrose 1,000 mls @ 100 mls/hr 04/07/20 19:37 Dextrose 5% 1,000 Ml IVPB PRN PRN Hypoglycemia Protocol Ampicillin Sodium 1 gm in 50 mls @ 100 mls/hr 04/11/20 12:00 04/12/20 12:31 Ampicillin 1 Gm/Ns 50 Ml IVPB 100 mls/hr Q6HR JUAN DIEGO Administration Insulin Aspart 3 - 6 units 04/08/20 08:00 04/12/20 12:33 Novolog SUB-Q Not Given TIDWM JUAN DIEGO Protocol Insulin Glargine 8 units 04/11/20 09:00 04/12/20 09:19 Lantus SUB-Q 8 units DAILY JUAN DIEGO Administration Lactobacillus Acidophilus 1 tablet 04/08/20 09:00 04/12/20 09:14 Lactinex Chewable Tablet PO 05/08/20 09:01 1 tablet BID JUAN DIEGO Administration Levothyroxine Sodium 75 mcg 04/08/20 06:30 04/12/20 05:34 Synthroid PO
--- NOTE | 2020-04-12 13:21 | PM.IMPN ---
Progress Note: A&P Assessment and Plan (1) Catheter-associated urinary tract infection: Qualifiers: Indwelling urinary catheter type: indwelling urethral catheter Encounter type: initial encounter Qualified Code(s): T83.511A - Infection and inflammatory reaction due to indwelling urethral catheter, initial encounter; N39.0 - Urinary tract infection, site not specified Code(s): T83.511A - Infection and inflammatory reaction due to indwelling urethral catheter, initial encounter; N39.0 - Urinary tract infection, site not specified Status: Acute Assessment and Plan: Enterococcus in urine and blood Switch from ceftriaxone to Unasyn 04/10, Ampicillin 04/11 DAY #2 Voiding trial 04/10 SUCCESSFUL Infectious disease was consulted for further evaluation and recommendations on antibiotics. Dr. graham recommended with her Enterococcus bacteremia and UTI she should have at least 3 more days of IV ampicillin. Possibly be discharged on . He is also going to order a renal ultrasound of the kidneys and bladder for further evaluation. Continue monitoring patient's symptoms and appreciate infectious disease recommendations. (2) Bacteremia due to Enterococcus: Code(s): R78.81 - Bacteremia; B95.2 - Enterococcus as the cause of diseases classified elsewhere Status: Acute Assessment and Plan: Clinically due to catheter-associated UTI Patient has been on ampicillin for 2 days which is sensitive to the Enterococcus UTI bacteremia Infectious Disease is on board and their input is greatly appreciated (3) CHF (congestive heart failure): Qualifiers: Heart failure type: unspecified Heart failure chronicity: acute Qualified Code(s): I50.9 - Heart failure, unspecified Code(s): I50.9 - Heart failure, unspecified Status: Acute Assessment and Plan: Echo results are currently pending in waiting interpretation by bath mix operator Patient states at home she is on Lasix 80 mg p.o. in the morning and supposed to be on 40 mg p.o. in the afternoon for which she does not take She had been receiving Lasix 20 mg IV b.i.d. but had still been remaining positive fluid balance and stable renal function I will increase Lasix today to 40 mg IV b.i.d. and continue monitoring fluid status and renal function. She is on a 2 L fluid restriction diet at this time as well Monitor renal function (4) Acute and chronic respiratory failure: Qualifiers: Respiratory failure complication: unspecified whether with hypoxia or hypercapnia Qualified Code(s): J96.20 - Acute and chronic respiratory failure, unspecified whether with hypoxia or hypercapnia Code(s): J96.20 - Acute and chronic respiratory failure, unspecified whether with hypoxia or hypercapnia Status: Acute Assessment and Plan: Presented with acute on chronic respiratory failure which was those likely secondary to acute CHF exacerbation SARS-CoV-2 negative She is now resting on her home oxygen which is 3 L via nasal cannula. Continue diuresis while monitoring renal function (5) Hypokalemia: Code(s): E87.6 - Hypokalemia Status: Acute Assessment and Plan: Likely due to diuresis Potassium is stable at this time Continue monitoring potassium daily and supplement as needed (6) Hyponatremia: Code(s): E87.1 - Hypo-osmolality and hyponatremia Status: Acute Assessment and Plan: Likely due to CHF. She was initially started on IV fluids which were discontinued and she was placed on fluid restriction IV Lasix therapy Sodium today was within normal limits. Continue checking sodium daily. (7) Type 2 diabetes
[2020-04-12] MEDS: POTASSIUM CHLORIDE 20 MEQ TABLET.ER PO (17:31)
[2020-04-12] MEDS: FUROSEMIDE INJ 40 MG/4 ML VIAL IV PUSH (17:32)
--- NOTE | 2020-04-12 18:13 | CONS_ITS ---
DATE OF CONSULTATION: 04/12/2020 REASON FOR CONSULTATION: Bacteremia. HISTORY OF PRESENT ILLNESS: The patient is an 84-year-old female who has had past urinary tract infections, but apparently not on a recurrent basis. She did have a bladder suspension procedure at about the age of 52, which was successful and done for prolapse by her description. She has had no previous bladder surgery otherwise, nor kidney surgery, knows of no kidney stones nor other obstruction. She had a fall and broke her right hip about 3 weeks prior to admission and was hospitalized at [facility]. She had urinary retention while there and a Alonso catheter was placed. She did not require any operative intervention for the fracture and was discharged to a custodial. She returned here to this hospital on April 07 with shortness of breath and rigors along with subjective fever. She had been afebrile here. Blood cultures were collected, now positive. She initially was given ceftriaxone and azithromycin along with a single dose of methylprednisolone, was changed to ampicillin sulbactam 2 days ago and to ampicillin yesterday. Consultation requested today. Her catheter has now been removed. She reports to me that she is emptying her bladder well. Although I's and O's are incomplete, she has had 450 mL urine output during the calendar day yesterday, 850 the previous day. She denies any dysuria or incontinence. She does have some residual suprapubic pain. No flank pain. No CVA pain. MEDICATIONS: Her home medication list included no antibiotics. ALLERGIES: CEFAZOLIN, UNKNOWN REACTION IN THE PAST. ALSO TRIMETHOPRIM SULFA, UNKNOWN REACTION. OTHERS NOT PERTINENT. HABITS: No tobacco. No alcohol. PRESENT MEDICATIONS: No ongoing immunosuppressants. PAST MEDICAL HISTORY: Mitral valve repair in May last year at [facility] requiring a sternotomy. She is unaware of the details of the repair. She also carries diagnosis of AF, CHF in the past, hypertension, COPD, and diabetes. FAMILY HISTORY: Dementia and kidney disease. SOCIAL HISTORY: Most recently in a custodial. She does have a son locally, previously lived at home and she is and retired. REVIEW OF SYSTEMS: Hip pain, especially with weightbearing. Easy fatigability, shortness of breath. 14-point review otherwise negative. PHYSICAL EXAMINATION: GENERAL: This is an elderly female who appears her actual age. No acute distress. VITAL SIGNS: Afebrile, 150/59, 79, 18, 98% on 3 L. SKIN: No generalized rashes. EENT: The conjunctivae are normal. Pupils equal, round, and reactive to light. The oropharynx, oral mucosa normal. NECK: No meningismus, mass, thyromegaly, or tenderness. LUNGS: Clear to auscultation. BACK: Tenderness in the left CVA region. CARDIAC: Regular rate and rhythm. No murmur, gallop, or rub. No heaves. She has a median sternotomy scar well healed. ABDOMEN: Soft, nondistended. Normal bowel sounds. No organomegaly. No masses. Nontender. EXTREMITIES: 1+ pitting edema both ankles. DIAGNOSTIC DATA: Chest x-ray performed on the 2nd with airspace opacities, suspected pulmonary edema. LABORATORY DATA: Blood cultures from admission, 2/2 sets, Enterococcus faecalis which was susceptible. A urine culture obtained the same time had similar susceptibilities, both to ampicillin and to vancomycin. Her white count today 12.2, was 16.4 on admission and 9.4 yesterday; hemoglobin 11; platelets are 155. Differential not repeated, earlier showed a minimal left shift. Blood gases 7.43, 29, 75, 19 on 5 L. She had hyponatremia, now corrected. BUN 34, creatinine 1. Her Accu-Cheks in the 100s to 200s. A1c 6.7%. BNP was high, CRP was high. Albumin 2.9. Urinalysis, kaye, cloudy, 5,
[2020-04-12] MEDS: SENNOSIDES 8.6 MG TABLET 17.2 MG PO (19:57)
[2020-04-12 20:04] LABS: Glucose Point of Care 135 (65-105)
[2020-04-12] MEDS: ALBUTEROL SULFATE NEB 2.5 MG/0.5 ML INH INHALATION (20:07)
[2020-04-12] MEDS: IPRATROPIUM BR 0.02% INH SOLN 0.5 MG/2.5 ML VIAL INHALATION (20:07)
[2020-04-12 21:30] LABS: Glucose Point of Care 169 (65-105)
[2020-04-13] VITALS (21 sets, daily range): BP systolic 112–145; BP diastolic 53–60; PULSE 77–96; RESP 16–22; TEMP 36.3–36.6; O2SAT 90–100
[2020-04-13] MEDS: AMPICILLIN 1 GM/NS 50 ML 1 GM/50 ML BAG IVPB ×4 (00:08→17:13)
[2020-04-13] MEDS: IPRATROPIUM BR 0.02% INH SOLN 0.5 MG/2.5 ML VIAL INHALATION ×4 (02:08→20:31)
[2020-04-13] MEDS: ALBUTEROL SULFATE NEB 2.5 MG/0.5 ML INH INHALATION ×4 (02:08→20:31)
[2020-04-13] MEDS: LEVOTHYROXINE SODIUM 75 MCG TABLET PO (05:46)
[2020-04-13 06:16] LABS: Basophils Absolute Auto 0.1 K/mm3 (0.0-0.1); Basophils Percent Auto 0.9 % (0.2-1.2); Eosinophils Absolute Auto 2.1 K/mm3 (0-0.3); Eosinophils Percent Auto 15.3 % (0-4.4); Hematocrit 37.6 % (37.0-47.0); Hemoglobin 11.9 g/dL (12.0-15.0); Immature Granulocyte Absolute 0.84 K/mm3 (0.00-0.031); Immature Granulocyte Percent A 6.1 % (0-0.5); Lymphocytes Absolute Auto 2.56 K/mm3 (0.9-3.2); Lymphocytes Percent Auto 18.6 % (18.3-44.2); Mean Corpuscular HGB Conc 31.6 g/dl (32-36); Mean Corpuscular Hemoglobin 29.7 pg (26-34); Mean Corpuscular Volume 93.8 fl (80-100); Monocytes Absolute Auto 1.5 K/mm3 (0.1-0.6); Monocytes Percent Auto 11.1 % (2.6-8.5); Neutrophils Absolute Auto 6.6 K/mm3 (1.3-6.7); Nucleated Red Blood Cells Perc 0.1 % (0.0-0.2); Platelet Count Result 180 k/mm3 (150-375); Red Blood Count 4.01 M/mm3 (4.2-5.4); Red Cell Distribution Width 15.4 % (11.5-14.5); White Blood Count 13.7 K/mm3 (4.5-10.0)
[2020-04-13 06:34] LABS: Anion Gap 4 mmol/L (8-16); Blood Urea Nitrogen 34 mg/dL (7-17); Calcium 8.5 mg/dL (8.4-10.2); Carbon Dioxide 34 mmol/L (22-30); Chloride 100 mmol/L (98-107); Estimated CRCL calculation 42 ml/min; Estimated Glomerular Filt Rate 53; Glucose 112 mg/dL (65-105); Sodium 138 mmol/L (137-145)
[2020-04-13] MEDS: METOPROLOL TARTRATE 25 MG TABLET PO ×2 (08:18→21:06)
[2020-04-13] MEDS: APIXABAN 2.5 MG TABLET PO ×2 (08:19→16:56)
[2020-04-13] MEDS: POTASSIUM CHLORIDE 20 MEQ TABLET.ER PO ×2 (08:19→16:59)
[2020-04-13] MEDS: AMIODARONE HCL 200 MG TABLET PO ×2 (08:19→16:58)
[2020-04-13] MEDS: SENNOSIDES 8.6 MG TABLET PO ×2 (08:20→21:06)
[2020-04-13] MEDS: INSULIN GLARGINE (*BKC) 100 UNITS/ML 8 UNITS SUB-Q (08:24)
[2020-04-13] MEDS: FUROSEMIDE INJ 40 MG/4 ML VIAL IV PUSH ×2 (08:24→16:58)
[2020-04-13] MEDS: CANAGLIFLOZIN 100 MG TABLET 200 MG PO (08:30)
[2020-04-13] MEDS: ACIDOPHILUS/BULGARICUS CHEWABLE TABLET 1 TABLET PO ×2 (10:43→16:55)
--- NOTE | 2020-04-13 12:10 | WPDINFPN2 ---
Progress Note: A&P Assessment and Plan (1) Bacteremia due to Enterococcus: Code(s): R78.81 - Bacteremia; B95.2 - Enterococcus as the cause of diseases classified elsewhere Status: Acute Assessment and Plan: 1. Enterococcus bacteremia, with infection, due to CA-UTI. WBC still high 2. Recent (3 weeks) hip injury, no surgery done, with urinary retention, Alonso now out 3. DM 4. MV repair 05/25 at [facility], with vegetation at TV perhaps in association with lead infection 5. Ancef allergy, tolerating ampicillin REC Renal US pending. (antibiotic #4) Amp #3, at least 10 days more. BCs redone. No aminoglycoside at present. MAYNOR is strongly recommended, as result would affect her treatment plan and her prognosis. Discussed Subjective Date/time seen: 04/13/20 12:10 Interval history: no new complaints Exam Narrative: Exam Narrative: afebrile Const: General: no acute distress Resp: Effort & Inspection: normal respiratory effort Auscultation: clear to auscultation bilaterally Cardio: Rate: regular rate Rhythm: regular rhythm Heart sounds: no gallops and no murmurs GI: Inspection: non-distended GI Palp: Yes Soft to palpation, No Tenderness to palpation present (GI) and No Guarding due to palpation present (GI) Auscultation: normal bowel sounds Skin: General skin exam: normal color and no rashes or lesions noted Objective Data Vital Signs Vital Signs: Vital Signs - 24 hr 04/12/20 14:44 04/12/20 16:00 04/12/20 17:31 Temperature 36.1 C L Pulse Rate 81 80 82 Respiratory Rate 18 Blood Pressure 114/56 L Pulse Oximetry 91 04/12/20 19:55 04/12/20 20:00 04/12/20 20:13 Temperature Pulse Rate 101 H 87 81 Respiratory Rate 18 16 Blood Pressure Pulse Oximetry 93 98 04/12/20 20:17 04/12/20 22:00 04/13/20 00:00 Temperature 36.3 C L Pulse Rate 87 79 77 Respiratory Rate 18 22 H Blood Pressure 130/65 Pulse Oximetry 93 98 04/13/20 00:09 04/13/20 02:09 04/13/20 02:14 Temperature Pulse Rate 80 80 80 Respiratory Rate 22 H 20 Blood Pressure Pulse Oximetry 90 04/13/20 04:00 04/13/20 06:00 04/13/20 08:00 Temperature 36.6 C Pulse Rate 90 81 78 Respiratory Rate 20 20 Blood Pressure 145/60 H Pulse Oximetry 98 95 04/13/20 09:05 04/13/20 09:08 04/13/20 09:16 Temperature Pulse Rate 82 78 Respiratory Rate 20 20 Blood Pressure Pulse Oximetry 95 Intake/Output Intake/Output: Intake & Output 04/10/20 04/11/20 04/12/20 04/13/20 23:59 23:59 23:59 23:59 Intake Total 1060 1560 1340 460 Output Total 850 450 Balance 210 1110 1340 460 Meds/Results Medications: Active Medications Generic Name Dose Route Start Last Admin Trade Name Freq PRN Reason Stop Dose Admin Acetaminophen 650 mg 04/07/20 19:45 Tylenol Tablet PO Q4H PRN Mild Pain (1-3) or Fever Hydrocodone Bitart/Acetaminophen 1 tab 04/08/20 14:02 04/13/20 09:57 [place] 7.5-325 Mg PO 1 tab Q4H PRN Administration Pain Rated 7-10 Al Hydrox/Mg Hydrox/Simethicone 30 ml 04/07/20 19:46 Mylanta PO Q8H PRN Dyspepsia Albuterol 2.5 mg 04/12/20 14:00 04/13/20 09:05 Albuterol Sulf Neb 2.5mg/0.5ml INHALATION 2.5 mg Q6HRT JUAN DIEGO Administration Amiodarone HCl 200 mg 04/07/20 17:00 04/13/20 08:19 Pacerone PO 200 mg BID JUAN DIEGO Administration Apixaban 2.5 mg 04/07/20 17:00 04/13/20 08:19 Eliquis PO 2.5 mg BID JUAN DIEGO Administration Canagliflozin 200 mg 04/11/20 08:00 04/13/20 08:30 Invokana PO 200 mg DAILY@0800 JUAN DIEGO Administration Dextrose 12.5 gm 04/07/20 19:37 Dextrose 50% Syringe IV PUSH PRN PRN Hypoglycemia Protocol Diltiazem HCl 240 mg 04/08/20 09:00 04/13/20 08:19 Cardizem Cd PO 240 mg DAILY JUAN DIEGO Administration Furosemide 40 mg 04/12/20 17:00 04/13/20 08:24 Lasix Inj IV PUSH 40 mg BID JUAN DIEGO Administration Glucagon 1 mg 04/07/20 19:37 Glucagon For Inj IM P
[2020-04-13 12:50] LABS: Glucose Point of Care 164 (65-105)
--- NOTE | 2020-04-13 12:53 | PM.IMPN ---
Progress Note: A&P Assessment and Plan (1) Catheter-associated urinary tract infection: Qualifiers: Indwelling urinary catheter type: indwelling urethral catheter Encounter type: initial encounter Qualified Code(s): T83.511A - Infection and inflammatory reaction due to indwelling urethral catheter, initial encounter; N39.0 - Urinary tract infection, site not specified Code(s): T83.511A - Infection and inflammatory reaction due to indwelling urethral catheter, initial encounter; N39.0 - Urinary tract infection, site not specified Status: Acute Assessment and Plan: Enterococcus in urine and blood cultures. Ampicillin Day 3 per ID rec. ID following. Voiding trial successful. Renal US pending Continue ampicillin per ID rec Await further rec from ID Further Evaluation from Cardiology and possible MAYNOR for vegetation on tricuspid valve evident on Echo; see below Continue to monitor (2) Bacteremia due to Enterococcus: Code(s): R78.81 - Bacteremia; B95.2 - Enterococcus as the cause of diseases classified elsewhere Status: Acute Assessment and Plan: Clinically due to catheter-associated UTI. BCx growing enterococcus sensitive to ampicillin Patient has been on ampicillin Day 3 Infectious Disease is on board and their input is greatly appreciated (3) Endocarditis: Code(s): I38 - Endocarditis, valve unspecified Status: Acute Assessment and Plan: Mod tricuspid vegetation noted on Echo with questionable Pacemaker lead involvement. ID rec MAYNOR. Discussed with [facility] who will be seeing patient in consult. 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 Gomes from [facility]. Will await further rec from Cardiology; appreciate recommendations Monitor (4) CHF (congestive heart failure): Qualifiers: Heart failure type: unspecified Heart failure chronicity: acute Qualified Code(s): I50.9 - Heart failure, unspecified Code(s): I50.9 - Heart failure, unspecified Status: Acute Assessment and Plan: Echo results as above. Patient states at home she is on Lasix 80 mg p.o. in the morning and supposed to be on 40 mg p.o. in the afternoon for which she does not take Continue Lasix 40 mg BID IV for now She is on a 2 L fluid restriction diet at this time as well Monitor renal function (5) Acute and chronic respiratory failure: Qualifiers: Respiratory failure complication: unspecified whether with hypoxia or hypercapnia Qualified Code(s): J96.20 - Acute and chronic respiratory failure, unspecified whether with hypoxia or hypercapnia Code(s): J96.20 - Acute and chronic respiratory failure, unspecified whether with hypoxia or hypercapnia Status: Acute Assessment and Plan: Presented with acute on chronic respiratory failure which was those likely secondary to acute CHF exacerbation. SARS-CoV-2 negative/ She is now resting on her home oxygen which is 3 L via nasal cannula. Continue diuresis while monitoring renal function (6) Hypokalemia: Code(s): E87.6 - Hypokalemia Status: Acute Assessment and Plan: Likely due to diuresis. K 4.0 today Continue monitoring potassium daily and supplement as needed (7) Hyponatremia: Code(s): E87.1 - Hypo-osmolality and hyponatremia Status: Acute Assessment and Plan: Na 138 today. Likely due to CHF. She was initially started on IV fluids which were discontinued and she was placed on fluid restriction IV Lasix therapy Continue checking sodium daily. (8) Type 2 diabetes mellitus with hyperglycemia, without long-term current use of in
--- NOTE | 2020-04-13 13:56 | PM.CNCAR ---
Assessment and Plan Assessment and plan (1) Endocarditis: Code(s): I38 - Endocarditis, valve unspecified Status: Acute Assessment and Plan: Vegetation associated tricuspid valve and/or pacemaker leads on 2D echocardiogram. Given Enterococcus bacteremia most suggestive endocarditis. Transesophageal echocardiogram indicated and advised. We will perform with Anesthesiology tomorrow. Risks, benefits, and alternatives explained in detail. Patient verbalized understanding and agrees to proceed with the plan of care. NPO after midnight. Discussed at length potential clinical implications, plan of care and management with regards to infected pacemaker leads, potential need for lead and hardware extraction. Continue IV antibiotics sensitive to ampicillin per Infectious Disease. Further recommendation to follow after MAYNOR. (2) Bacteremia due to Enterococcus: Code(s): R78.81 - Bacteremia; B95.2 - Enterococcus as the cause of diseases classified elsewhere Status: Acute Assessment and Plan: As above. Enterococcus in the blood and urine. Likely urinary source. per Infectious Disease and primary service. (3) H/O mitral valve repair: Code(s): Z98.890 - Other specified postprocedural states Status: Acute Assessment and Plan: Increased risk for mitral endocarditis. Continue antibiotics. (4) CHF (congestive heart failure): Qualifiers: Heart failure chronicity: acute Heart failure type: unspecified Qualified Code(s): I50.9 - Heart failure, unspecified Code(s): I50.9 - Heart failure, unspecified Status: Acute Assessment and Plan: Reasonably compensated. Continue intravenous diuresis. Monitor electrolytes, renal function. (5) Catheter-associated urinary tract infection: Qualifiers: Encounter type: initial encounter Indwelling urinary catheter type: indwelling urethral catheter Qualified Code(s): T83.511A - Infection and inflammatory reaction due to indwelling urethral catheter, initial encounter; N39.0 - Urinary tract infection, site not specified Code(s): T83.511A - Infection and inflammatory reaction due to indwelling urethral catheter, initial encounter; N39.0 - Urinary tract infection, site not specified Status: Acute Assessment and Plan: Per primary service. (6) COPD (chronic obstructive pulmonary disease): Code(s): J44.9 - Chronic obstructive pulmonary disease, unspecified Status: Acute Assessment and Plan: Continue oxygen supplementation. (7) Pacemaker: Code(s): Z95.0 - Presence of cardiac pacemaker Status: Acute (8) Atrial fibrillation: Code(s): I48.91 - Unspecified atrial fibrillation Status: Acute Assessment and Plan: Continue anticoagulation. Monitor for bleeding. History of Present Illness History of Present Illness Consult date/time: Date of service: 04/13/20 13:56 This is a cardiology consultation at the request of MIRLANDE Madrid of the [facility] for our opinion regarding abnormal echocardiogram with concern for tricuspid valve and/or pacemaker lead vegetation and possible need for transesophageal echocardiogram. Requesting physician: Eric Waite PA-C Consult reason: Other (bactereremia, pacemaker/tricuspid valve vegetation) Reason For Visit: Acute on chronic respiratory failure, CHF exacerba Narrative: Patient is an 84-year-old female with a past medical history significant for mitral valve repair, diastolic heart failure, COPD and chronic hypoxic respiratory failure on 3L O2 via nasal canula, tachycardia bradycardia syndrome status post pacemaker, paroxysmal atrial fibrillation on Apixaban, diabetes mellitus, hypertension who is followed by Dr. Alverto Gomes ([facility]) as an outpatient who reportedly fell suffering a right hip fracture 3 weeks ago at [facility]. A Alonso catheter was placed due to urinary re
[2020-04-13 17:46] LABS: Glucose Point of Care 179 (65-105)
[2020-04-13] MEDS: SENNOSIDES 8.6 MG TABLET 17.2 MG PO (21:06)
[2020-04-13 22:37] LABS: Glucose Point of Care 214 (65-105)
[2020-04-14] VITALS (24 sets, daily range): BP systolic 102–125; BP diastolic 47–65; PULSE 79–90; RESP 14–24; TEMP 36.2–36.7; O2SAT 93–99
[2020-04-14] MEDS: AMPICILLIN 1 GM/NS 50 ML 1 GM/50 ML BAG IVPB ×5 (00:18→21:46)
[2020-04-14 00:43] LABS: Glucose Point of Care 142 (65-105)
[2020-04-14] MEDS: IPRATROPIUM BR 0.02% INH SOLN 0.5 MG/2.5 ML VIAL INHALATION ×4 (01:39→21:29)
[2020-04-14] MEDS: ALBUTEROL SULFATE NEB 2.5 MG/0.5 ML INH INHALATION ×4 (01:39→21:29)
[2020-04-14] MEDS: LEVOTHYROXINE SODIUM 75 MCG TABLET PO (05:49)
[2020-04-14 05:58] LABS: Basophils Percent Auto 0.2 % (0.2-1.2); Eosinophils Absolute Auto 2.3 K/mm3 (0-0.3); Hematocrit 38.4 % (37.0-47.0); Hemoglobin 12.1 g/dL (12.0-15.0); Immature Granulocyte Absolute 0.86 K/mm3 (0.00-0.031); Immature Granulocyte Percent A 7.1 % (0-0.5); Lymphocytes Absolute Auto 2.43 K/mm3 (0.9-3.2); Mean Corpuscular HGB Conc 31.5 g/dl (32-36); Mean Platelet Volume 12.3 fl (7.4-10.4); Monocytes Absolute Auto 1.1 K/mm3 (0.1-0.6); Monocytes Percent Auto 9.3 % (2.6-8.5); Neutrophils Absolute Auto 5.4 K/mm3 (1.3-6.7); Neutrophils Percent Auto 44.4 % (45.5-73.1); Platelet Count Result 171 k/mm3 (150-375); Red Blood Count 4.04 M/mm3 (4.2-5.4); Red Cell Distribution Width 15.7 % (11.5-14.5); White Blood Count 12.2 K/mm3 (4.5-10.0)
[2020-04-14 06:17] LABS: Anion Gap 4 mmol/L (8-16); Blood Urea Nitrogen 29 mg/dL (7-17); Calcium 8.3 mg/dL (8.4-10.2); Carbon Dioxide 37 mmol/L (22-30); Chloride 98 mmol/L (98-107); Estimated CRCL calculation 39 ml/min; Estimated Glomerular Filt Rate 48; Glucose 121 mg/dL (65-105); Potassium 3.8 mmol/L (3.4-5.0); Sodium 139 mmol/L (137-145)
--- NOTE | 2020-04-14 07:58 | WPDANESEPPF ---
Anes - Initial Pre Proc Eval Procedure: Operation Date: 04/14/20 11:00 Proposed Procedures p Trans Esophageal Echo - Armando Barth MD Date/Time: 04/14/20 07:58 Surgeon: Eric Waite PA-C Pre Op Diagnosis: Acute on chronic respiratory failure, CHF exacerba Patient Data Age: 84 Gender: F Height: 1.7 m Weight: 83 kg Last Vital Signs Temp 36.5 C 04/14/20 06:00 Pulse 80 04/14/20 06:00 Resp 20 04/14/20 06:00 BP 116/47 L 04/14/20 06:00 Pulse Ox 97 04/14/20 06:00 Allergies Allergy/AdvReac Type Severity Reaction Status Date / Time sulfamethoxazole Allergy Mild Unknown Verified 04/07/20 13:06 trimethoprim Allergy Mild Unknown Verified 04/07/20 13:06 cefazolin Allergy Unknown Unknown Verified 04/07/20 19:39 lisinopril Allergy Unknown Unknown Verified 04/07/20 13:06 metformin Allergy Unknown Unknown Verified 04/07/20 13:06 CEFAZOLIN SODIUM Allergy Unknown Unknown Uncoded 04/07/20 13:06 Contrast Media AdvReac Unknown NAUSEA Uncoded 09/20/18 12:23 Home Medications Medication Instructions Recorded Confirmed Type Humulin R Regular U-100 Insuln See Rx Instructions .ROUTE .COMPLEX 04/07/20 04/07/20 History acetaminophen 650 mg PO Q4-6H PRN 04/07/20 04/07/20 History acidophilus-pectin, citrus 2 cap PO BID 04/07/20 04/07/20 History [Acidophilus Probiotic] albuterol sulfate 2 puff INHALATION Q4H PRN 04/07/20 04/07/20 History alum-mag hydroxide-simeth 30 ml PO Q8-10H PRN 04/07/20 04/07/20 History amiodarone 200 mg PO BID 04/07/20 04/07/20 History apixaban [Eliquis] 2.5 mg PO BID 04/07/20 04/07/20 History diltiazem HCl 240 mg PO DAILY 04/07/20 04/07/20 History glucagon HCl [Glucagon (HCl) 1 mg SUBCUT Q20M PRN 04/07/20 04/07/20 History Emergency Kit] ipratropium-albuterol 3 ml INHALATION Q6H 04/07/20 04/07/20 History levothyroxine 75 mcg PO DAILY 04/07/20 04/07/20 History metoprolol tartrate 25 mg PO BID 04/07/20 04/07/20 History nitroglycerin 0.4 mg SUBLINGUAL Q5MIN PRN 04/07/20 04/07/20 History sennosides [Senna Lax] 17.2 mg PO HS PRN 04/07/20 04/07/20 History tramadol 50 mg PO Q8H PRN 04/07/20 04/07/20 History Laboratory Tests 04/13/20 04/13/20 04/13/20 12:45 17:08 20:42 WBC RBC Hgb Hct MCV MCH MCHC RDW Plt Count MPV Immature Gran % (Auto) Neut % (Auto) Lymph % (Auto) [place] % (Auto) Eos % (Auto) Baso % (Auto) Lymph # (Auto) [place] # (Auto) Eos # (Auto) Baso # (Auto) Abs Immat Gran (auto) Absolute Neuts (auto) Absolute Nucleated RBC Nucleated RBC % Sodium Potassium Chloride Carbon Dioxide Anion Gap BUN Creatinine Estim Creat Clear Calc Estimated GFR Glucose POC Capillary Glucose 164 mg/dl H mg/dl 179 mg/dl H mg/dl 214 mg/dl H mg/dl (65-105) (65-105) (65-105) Calcium Magnesium 04/14/20 04/14/20 04/14/20 00:19 05:16 05:16 WBC 12.2 K/mm3 H K/mm3 (4.5-10.0) RBC 4.04 M/mm3 L M/mm3 (4.2-5.4) Hgb 12.1 g/dL g/dL (12.0-15.0) Hct 38.4 % % (37.0-47.0) MCV 95.0 fl fl (80-100) MCH 30.0 pg pg (26-34) MCHC 31.5 g/dl L g/dl (32-36) RDW 15.7 % H % (11.5-14.5) Plt Count 171 k/mm3 k/mm3 (150-375) MPV 12.3 fl H fl (7.4-10.4) Immature Gran % (Auto) 7.1 % H % (0-0.5) Neut % (Auto) 44.4 % L % (45.5-73.1) Lymph % (Auto) 20.0 % % (18.3-44.2) Hutchinson % (Auto) 9.3 % H % (2.6-8.5) Eos % (Auto) 19.0 % H % (0-4.4) Baso % (Auto) 0.2 % % (0.2-1.2) Lymph # (Auto) 2.43 K/mm3 K/mm
[2020-04-14 08:32] LABS: Glucose Point of Care 139 (65-105)
--- NOTE | 2020-04-14 11:46 | WPDTEECHO ---
MAYNOR TransEsophageal Echocardiogram Date of procedure: 04/14/20 Procedure Type: Transesophageal echocardiogram Indications: endocarditis, tricuspid valve vegetation Image Quality: good Findings: Brief history present illness: Patient is a pleasant 84-year-old female with a history of COPD with chronic respiratory failure on 3 L nasal cannula chronically, tachycardia bradycardia syndrome status post pacemaker, paroxysmal atrial fibrillation on apixaban, diabetes mellitus, hypertension was admitted with shortness of breath, fevers and chills found to have Enterococcus bacteremia and Enterococcus in the urine with a indwelling Alonso catheter. 2D echocardiogram was obtained which revealed a 1.5 x 1.2 cm mobile echodensity on the tricuspid valve and/or pacemaker lead. Patient is subsequent referred for transesophageal echocardiogram for further evaluation. Procedure in detail: After verbal and written informed consent was obtained the patient risks, benefits, and alternatives explained in detail the patient agreed to proceed with the plan of care as outlined above. The patient was evaluated at bedside in the PACU. The patient was then placed in the appropriate 30 to 45 degree angle supine position at a slight left lateral decubitus position. Patient was monitored throughout the study with telemetry, oxygen saturation, end-tidal CO2 monitoring, blood pressure, heart rate, and respirations. After the oral bite block placed and adequate sedation administered by Anesthesiology, the transesophageal echocardiogram probe was advanced through the oral bite block into the posterior hypopharynx and into the esophagus easily and without complication. Multiple, multiplanar echocardiographic images were obtained in multiple standard re-projections. Pulsed wave, continuous-wave, and color-flow Doppler were utilized in conjunction with this study. At the conclusion of the study, the transesophageal echocardiogram probe was removed easily and without complication. The patient tolerated the procedure well without difficulty. Patient was in sinus rhythm throughout the study. Moderate Sedation/Anesthesia administration: Patient reports no prior problems with sedation/anesthesia. Please see Anesthesiology documentation for sedation administration and protocol details as they were managing anesthesia during this procedure. There were no complications and patient tolerated the procedure well. See post-anesthesia documentation. Findings: Left ventricular size and systolic function within normal limits without wall motion abnormalities, mild left ventricular hypertrophy and ejection fraction of 60-65%. Right ventricle is at least moderately enlarged with mild hypokinesis. Linear echodensities consistent with known pacemaker leads are seen traversing within the right atrium and right ventricle. Left atrium is severely enlarged with dense spontaneous contrast. Right atrium is severely enlarged. Interatrial septum is anatomically normal without evidence of shunt with color-flow Doppler nor with injection of agitated saline. Mitral annular echodensity consistent with mitral annuloplasty ring is evident with mild to moderate thickening of the leaflets and mild restricted motion. No mobile echodensities are noted on the mitral valve leaflets. Small echodensity seen within the LV appears consistent with small torn minor chordae. mild regurgitation of the mitral marin is appreciated. The tricuspid valve is not well visualized in several views, however, appeared fairly unremarkable with visualized portions. Nonetheless, there is a highly mobile, large echodensity consistent with vegetation which appears to arise from the leaflet although cannot definitively exclude association with pacemaker lead. Reverberation artifact confounded visualization. As such, the precise origination point could not be visualized, however, while initially 2 mobile echodensities were suspected, I believe there is
--- NOTE | 2020-04-14 12:20 | PCDIET ---
Weekly nutritional screen. Patient is tolerating current diet, DBCC/FR, which is appropriate, with adequate intake, 75-100% of meal. No weight loss reported. No nutritional needs at this time.
[2020-04-14] MEDS: AMIODARONE HCL 200 MG TABLET PO ×2 (13:08→20:53)
[2020-04-14] MEDS: APIXABAN 2.5 MG TABLET PO ×2 (13:08→20:54)
[2020-04-14] MEDS: FUROSEMIDE INJ 40 MG/4 ML VIAL IV PUSH ×2 (13:08→18:53)
[2020-04-14] MEDS: CANAGLIFLOZIN 100 MG TABLET 200 MG PO (13:09)
[2020-04-14] MEDS: POTASSIUM CHLORIDE 20 MEQ TABLET.ER PO ×2 (13:09→17:53)
[2020-04-14] MEDS: ACIDOPHILUS/BULGARICUS CHEWABLE TABLET 1 TABLET PO ×2 (13:09→17:52)
[2020-04-14] MEDS: METOPROLOL TARTRATE 25 MG TABLET PO ×2 (13:10→20:53)
[2020-04-14] MEDS: SENNOSIDES 8.6 MG TABLET PO (13:10)
[2020-04-14 13:27] LABS: Glucose Point of Care 76 (65-105)
--- NOTE | 2020-04-14 14:01 | WPDINFPN2 ---
Progress Note: A&P Assessment and Plan (1) Bacteremia due to Enterococcus: Code(s): R78.81 - Bacteremia; B95.2 - Enterococcus as the cause of diseases classified elsewhere Status: Acute Assessment and Plan: 1. Enterococcus bacteremia, with infection, due to CA-UTI. 2. Recent (3 weeks) hip injury, no surgery done, with urinary retention, Alonso now out and US is acceptable 3. DM 4. MV repair 05/25, no vegetation 5. Ancef allergy, tolerating ampicillin 6. 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 Same organism. REC (antibiotic #5) Amp #4, anticipate 4-6 weeks IV ampicillin. Increase to q4hour. Weighing risk/benefit, no gentamicin, but I will add Ceftriaxone as there is some good clinical data for synergy . F/U repeat BCs. Dr. Barth also seeing. I counseled the patient that even with optimal medical therapy, persistent infection may lead to need for operative intervention. Subjective Date/time seen: 04/14/20 14:01 Interval history: no dyspnea Exam Narrative: Exam Narrative: afebrile Const: General: no acute distress Neck: Neck: no JVD Resp: Effort & Inspection: normal respiratory effort Auscultation: clear to auscultation bilaterally Cardio: Rate: regular rate Rhythm: regular rhythm Heart sounds: no murmurs GI: Inspection: non-distended GI Palp: Yes Soft to palpation and No Tenderness to palpation present (GI) Skin: General skin exam: normal color and no rashes or lesions noted Objective Data Vital Signs Vital Signs: Vital Signs - 24 hr 04/13/20 14:31 04/13/20 14:45 04/13/20 16:00 Temperature Pulse Rate 79 80 80 Respiratory Rate 18 18 Blood Pressure Pulse Oximetry 04/13/20 20:00 04/13/20 20:32 04/13/20 20:37 Temperature Pulse Rate 80 80 80 Respiratory Rate 20 22 H Blood Pressure Pulse Oximetry 100 04/13/20 21:06 04/13/20 22:00 04/13/20 22:44 Temperature 36.5 C Pulse Rate 80 80 80 Respiratory Rate 16 Blood Pressure 139/53 L Pulse Oximetry 100 94 04/14/20 00:00 04/14/20 01:41 04/14/20 01:47 Temperature Pulse Rate 80 80 81 Respiratory Rate 18 20 Blood Pressure Pulse Oximetry 04/14/20 01:50 04/14/20 04:00 04/14/20 06:00 Temperature 36.5 C Pulse Rate 80 80 80 Respiratory Rate 20 Blood Pressure 116/47 L Pulse Oximetry 97 97 04/14/20 08:00 04/14/20 09:12 04/14/20 09:18 Temperature 36.2 C L Pulse Rate 80 80 80 Respiratory Rate 20 16 18 Blood Pressure 119/51 L Pulse Oximetry 98 04/14/20 11:40 04/14/20 11:45 04/14/20 11:50 Temperature Pulse Rate 80 82 80 Respiratory Rate 22 H 21 H 24 H Blood Pressure 115/50 L 102/49 L 110/50 L Pulse Oximetry 96 98 98 04/14/20 11:55 04/14/20 12:00 04/14/20 12:10 Temperature Pulse Rate 81 80 80 Respiratory Rate 18 15 16 Blood Pressure 112/54 L 108/51 L 113/65 Pulse Oximetry 98 99 99 04/14/20 13:08 04/14/20 13:10 Temperature Pulse Rate 90 90 Respiratory Rate Blood Pressure Pulse Oximetry Intake/Output Intake/Output: Intake & Output 04/11/20 04/12/20 04/13/20 04/14/20 23:59 23:59 23:59 23:59 Intake Total 1560 1340 1460 110 Output Total 450 50 Balance 1110 1340 1410 110 Meds/Results Medications: Active Medications Generic Name Dose Route Start Last Admin Trade Name Freq PRN Reason Stop Dose Admin Acetaminophen 650 mg 04/07/20 19:45 Tylenol Tablet PO Q4H PRN Mild Pain (1-3) or Fever Hydrocodone Bitart/Acetaminophen 1 tab 04/08/20 14:02 04/13/20 09:57 [place] 7.5-325 Mg PO 1 tab Q4H PRN Administration Pain Rated 7-10 Al Hydrox/Mg Hydrox/Simethicone 30 ml 04/07/20 19:46 Mylanta PO Q8H PRN Dyspepsia Albuterol 2.5 mg 04/12/20 14:00 04/14/20 09:10 Albuterol Sulf Neb 2.5mg/0.5ml INHALATION 2.5 mg Q6HRT JUAN DIEGO Administration Amiodarone HCl 200 mg 04/07/20 17:00 04/14/20 13:08 Pacerone PO 200 mg BID JUAN DIEGO Administration Ap
--- NOTE | 2020-04-14 15:33 | PCPTNOTE ---
PT attempted to see patinet 2x today. Pt out of room for testing in AM, and then refused PT in PM. Patient stated that she is not feeling well this afternoon and I got bad news today. PT will continue to follow per plan of care.
--- NOTE | 2020-04-14 16:38 | PM.IMPN ---
Progress Note: A&P Assessment and Plan (1) Catheter-associated urinary tract infection: Qualifiers: Indwelling urinary catheter type: indwelling urethral catheter Encounter type: initial encounter Qualified Code(s): T83.511A - Infection and inflammatory reaction due to indwelling urethral catheter, initial encounter; N39.0 - Urinary tract infection, site not specified Code(s): T83.511A - Infection and inflammatory reaction due to indwelling urethral catheter, initial encounter; N39.0 - Urinary tract infection, site not specified Status: Acute Assessment and Plan: Enterococcus in urine and blood cultures. Ampicillin Day 4 per ID rec; Rocephin also added for synergistic effects, as well. ID following. Will likely need 4-6 weeks of IV antibiotics for bacteremia/TV vegetation. Voiding trial successful. Renal US shows mild atrophy of kidneys Continue ampicillin and Rocephin per ID rec Await further rec from ID Continue to monitor (2) Bacteremia due to Enterococcus: Code(s): R78.81 - Bacteremia; B95.2 - Enterococcus as the cause of diseases classified elsewhere Status: Acute Assessment and Plan: Clinically due to catheter-associated UTI. BCx growing enterococcus sensitive to ampicillin Patient has been on ampicillin Day 4; Rocephin started today per ID (3) Endocarditis: Code(s): I38 - Endocarditis, valve unspecified Status: Acute Assessment and Plan: Mod tricuspid vegetation noted on TTE with questionable Pacemaker lead involvement. MAYNOR shows highly mobile echodensity arising from TV leaflet consistent with vegetation; association with pacemaker lead could not be determinded due to reverberation artifact. ID recommending ampicillin/Rocephin for 4-6 weeks tentatively; continue these recommendations Will have CC start disposition planning Monitor (4) CHF (congestive heart failure): Qualifiers: Heart failure type: unspecified Heart failure chronicity: acute Qualified Code(s): I50.9 - Heart failure, unspecified Code(s): I50.9 - Heart failure, unspecified Status: Acute Assessment and Plan: Echo results as above. Patient states at home she is on Lasix 80 mg p.o. in the morning and supposed to be on 40 mg p.o. in the afternoon for which she does not take Continue Lasix 40 mg BID IV for now; consider switching to PO in next 1-2 days She is on a 2 L fluid restriction diet at this time as well Monitor renal function (5) Acute and chronic respiratory failure: Qualifiers: Respiratory failure complication: unspecified whether with hypoxia or hypercapnia Qualified Code(s): J96.20 - Acute and chronic respiratory failure, unspecified whether with hypoxia or hypercapnia Code(s): J96.20 - Acute and chronic respiratory failure, unspecified whether with hypoxia or hypercapnia Status: Acute Assessment and Plan: Presented with acute on chronic respiratory failure which was those likely secondary to acute CHF exacerbation. SARS-CoV-2 negative/ She is now resting on her home oxygen which is 3 L via nasal cannula. Continue diuresis while monitoring renal function (6) Hypokalemia: Code(s): E87.6 - Hypokalemia Status: Acute Assessment and Plan: Likely due to diuresis. K 3.8 today Continue monitoring potassium daily and supplement as needed (7) Hyponatremia: Code(s): E87.1 - Hypo-osmolality and hyponatremia Status: Acute Assessment and Plan: Na 139 today. Likely due to CHF. She was initially started on IV fluids which were discontinued and she was placed on fluid restriction IV Lasix therapy Continue checking so
[2020-04-14 17:31] LABS: Glucose Point of Care 191 (65-105)
[2020-04-14] MEDS: SENNOSIDES 8.6 MG TABLET 17.2 MG PO (20:53)
[2020-04-14 21:51] LABS: Glucose Point of Care 290 (65-105)
[2020-04-15] VITALS (17 sets, daily range): BP systolic 115–124; BP diastolic 52–58; PULSE 62–86; RESP 12–20; TEMP 36.1–37.3; O2SAT 95–100
[2020-04-15] MEDS: AMPICILLIN 1 GM/NS 50 ML 1 GM/50 ML BAG IVPB ×5 (01:00→17:50)
[2020-04-15] MEDS: ALBUTEROL SULFATE NEB 2.5 MG/0.5 ML INH INHALATION ×3 (02:36→14:18)
[2020-04-15] MEDS: IPRATROPIUM BR 0.02% INH SOLN 0.5 MG/2.5 ML VIAL INHALATION ×3 (02:36→14:18)
[2020-04-15] MEDS: LEVOTHYROXINE SODIUM 75 MCG TABLET PO (04:57)
[2020-04-15 05:54] LABS: Basophils Percent Auto 0.2 % (0.2-1.2); Eosinophils Absolute Auto 2.3 K/mm3 (0-0.3); Eosinophils Percent Auto 19.4 % (0-4.4); Hematocrit 36.9 % (37.0-47.0); Hemoglobin 11.6 g/dL (12.0-15.0); Immature Granulocyte Absolute 0.68 K/mm3 (0.00-0.031); Immature Granulocyte Percent A 5.8 % (0-0.5); Lymphocytes Absolute Auto 2.49 K/mm3 (0.9-3.2); Lymphocytes Percent Auto 21.3 % (18.3-44.2); Mean Corpuscular HGB Conc 31.4 g/dl (32-36); Mean Corpuscular Hemoglobin 29.6 pg (26-34); Mean Corpuscular Volume 94.1 fl (80-100); Mean Platelet Volume 11.9 fl (7.4-10.4); Monocytes Absolute Auto 1.2 K/mm3 (0.1-0.6); Monocytes Percent Auto 10.5 % (2.6-8.5); Neutrophils Percent Auto 42.8 % (45.5-73.1); Platelet Count Result 184 k/mm3 (150-375); Red Blood Count 3.92 M/mm3 (4.2-5.4); Red Cell Distribution Width 15.6 % (11.5-14.5); White Blood Count 11.7 K/mm3 (4.5-10.0)
[2020-04-15 06:06] LABS: Anion Gap 4 mmol/L (8-16); Blood Urea Nitrogen 20 mg/dL (7-17); Calcium 8.5 mg/dL (8.4-10.2); Carbon Dioxide 34 mmol/L (22-30); Chloride 99 mmol/L (98-107); Estimated CRCL calculation 39 ml/min; Estimated Glomerular Filt Rate 48; Glucose 135 mg/dL (65-105); Potassium 3.9 mmol/L (3.4-5.0); Sodium 137 mmol/L (137-145)
[2020-04-15 08:32] LABS: Glucose Point of Care 107 (65-105)
[2020-04-15] MEDS: CANAGLIFLOZIN 100 MG TABLET 200 MG PO (08:40)
[2020-04-15] MEDS: POTASSIUM CHLORIDE 20 MEQ TABLET.ER PO ×2 (08:42→17:51)
[2020-04-15] MEDS: ACIDOPHILUS/BULGARICUS CHEWABLE TABLET 1 TABLET PO ×2 (08:43→17:49)
[2020-04-15] MEDS: AMIODARONE HCL 200 MG TABLET PO ×2 (08:43→17:49)
[2020-04-15] MEDS: APIXABAN 2.5 MG TABLET PO ×2 (08:46→17:51)
[2020-04-15] MEDS: FUROSEMIDE INJ 40 MG/4 ML VIAL IV PUSH ×2 (08:46→17:51)
[2020-04-15] MEDS: SENNOSIDES 8.6 MG TABLET PO (08:47)
[2020-04-15] MEDS: METOPROLOL TARTRATE 25 MG TABLET PO (08:47)
[2020-04-15] MEDS: INSULIN GLARGINE (*BKC) 100 UNITS/ML 8 UNITS SUB-Q (08:54)
[2020-04-15] MEDS: LIDOCAINE HCL 1% PF INJ 5 ML VIAL INFILTRATE (11:30)
--- NOTE | 2020-04-15 11:40 | PCOTNOTE ---
Attempted to see patient this am, however patient unavailable at this time having bedside procedure.
[2020-04-15 12:36] LABS: Glucose Point of Care 172 (65-105)
[2020-04-15 13:42] LABS: SARS-CoV-2 RNA PCR Negative
--- NOTE | 2020-04-15 13:54 | WPDINFPN2 ---
Progress Note: A&P Assessment and Plan (1) Bacteremia due to Enterococcus: Code(s): R78.81 - Bacteremia; B95.2 - Enterococcus as the cause of diseases classified elsewhere Status: Acute Assessment and Plan: 1. Enterococcus bacteremia, with infection, due to CA-UTI. 2. Recent (3 weeks) hip injury, no surgery done, with urinary retention, Alonso now out and US is acceptable 3. DM 4. MV repair 05/25, no vegetation 5. Ancef allergy, tolerating ampicillin and ceftriaxone 6. 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 Same organism. REC (antibiotic #6) Amp #, anticipate 6 weeks IV ampicillin. No new dose adjustments. Ceftriaxone # , for synergy . F/U repeat BCs NG 2 days. PICC now in, ok discharge planning, ideally [facility] Subjective Date/time seen: 04/15/20 13:54 Interval history: no subjective fever, no dyspnea, no chest pain Exam Narrative: Exam Narrative: afebrile Const: General: no acute distress Eyes: General: appearance normal, both eyes and all related structures Resp: Effort & Inspection: normal respiratory effort Auscultation: clear to auscultation bilaterally and diminished lung sounds Cardio: Rate: regular rate Rhythm: regular rhythm Heart sounds: no gallops and no murmurs GI: Inspection: non-distended GI Palp: Yes Soft to palpation and No Tenderness to palpation present (GI) Objective Data Vital Signs Vital Signs: Vital Signs - 24 hr 04/14/20 14:46 04/14/20 16:00 04/14/20 20:00 Temperature Pulse Rate 80 80 80 Respiratory Rate 16 Blood Pressure Pulse Oximetry 04/14/20 20:53 04/14/20 21:29 04/14/20 21:36 Temperature Pulse Rate 88 80 80 Respiratory Rate 14 14 Blood Pressure Pulse Oximetry 94 95 04/14/20 22:00 04/15/20 00:00 04/15/20 02:35 Temperature 36.7 C Pulse Rate 79 80 77 Respiratory Rate 22 H Blood Pressure 125/53 L Pulse Oximetry 93 97 04/15/20 02:36 04/15/20 02:44 04/15/20 04:00 Temperature Pulse Rate 77 82 80 Respiratory Rate 14 16 Blood Pressure Pulse Oximetry 04/15/20 06:00 04/15/20 07:30 04/15/20 08:43 Temperature 37.3 C Pulse Rate 81 80 62 Respiratory Rate 20 Blood Pressure 115/55 L Pulse Oximetry 95 98 04/15/20 08:47 04/15/20 09:33 04/15/20 09:42 Temperature Pulse Rate 62 85 86 Respiratory Rate 20 20 Blood Pressure Pulse Oximetry 95 04/15/20 10:00 04/15/20 12:00 Temperature 36.1 C L Pulse Rate 80 80 Respiratory Rate 12 Blood Pressure 115/52 L Pulse Oximetry 100 Intake/Output Intake/Output: Intake & Output 04/12/20 04/13/20 04/14/20 04/15/20 23:59 23:59 23:59 23:59 Intake Total 1340 1460 1045 620 Output Total 50 Balance 1340 1410 1045 620 Meds/Results Medications: Active Medications Generic Name Dose Route Start Last Admin Trade Name Freq PRN Reason Stop Dose Admin Acetaminophen 650 mg 04/07/20 19:45 Tylenol Tablet PO Q4H PRN Mild Pain (1-3) or Fever Hydrocodone Bitart/Acetaminophen 1 tab 04/08/20 14:02 04/13/20 09:57 [place] 7.5-325 Mg PO 1 tab Q4H PRN Administration Pain Rated 7-10 Al Hydrox/Mg Hydrox/Simethicone 30 ml 04/07/20 19:46 Mylanta PO Q8H PRN Dyspepsia Albuterol 2.5 mg 04/12/20 14:00 04/15/20 09:31 Albuterol Sulf Neb 2.5mg/0.5ml INHALATION 2.5 mg Q6HRT JUAN DIEGO Administration Amiodarone HCl 200 mg 04/07/20 17:00 04/15/20 08:43 Pacerone PO 200 mg BID JUAN DIEGO Administration Apixaban 2.5 mg 04/07/20 17:00 04/15/20 08:46 Eliquis PO 2.5 mg BID JUAN DIEGO Administration Canagliflozin 200 mg 04/11/20 08:00 04/15/20 08:40 Invokana PO 200 mg DAILY@0800 JUAN DIEGO Administration Dextrose 12.5 gm 04/07/20 19:37 Dextrose 50% Syringe IV PUSH PRN PRN Hypoglycemia Protocol Diltiazem HCl 240 mg 04/08/20 09:00 04/15/20 08:46 Cardizem Cd PO 240 mg DAILY JUAN DIEGO Administration Furosemide 40 mg
--- NOTE | 2020-04-15 14:09 | PC.NURSE ---
On 04/15/20, the student, [ Josee Paredes], provided care and completed [facility] documentation on this patient. I have reviewed the student's documentation and agree with the findings.
[2020-04-15] MEDS: CENTRAL LINE FLUSH 10 ML IV PUSH (14:55)
--- NOTE | 2020-04-15 15:06 | PM.DS ---
DS: Admitting Diagnosis Admitting Diagnosis Admitting Diagnosis: Acute on chronic respiratory failure, CHF exacerba DS: Discharge Diagnosis Discharge Diagnosis (1) Catheter-associated urinary tract infection: Qualifiers: Encounter type: initial encounter Indwelling urinary catheter type: indwelling urethral catheter Qualified Code(s): T83.511A - Infection and inflammatory reaction due to indwelling urethral catheter, initial encounter; N39.0 - Urinary tract infection, site not specified Code(s): T83.511A - Infection and inflammatory reaction due to indwelling urethral catheter, initial encounter; N39.0 - Urinary tract infection, site not specified Status: Acute Assessment and Plan: Enterococcus in urine and blood cultures. Ampicillin Day per ID rec; Rocephin also added for synergistic effects, as well. ID following. Will plan on 6 weeks of IV antibiotics for bacteremia/TV vegetation per ID rec. Voiding trial successful. Renal US shows mild atrophy of kidneys Continue ampicillin and Rocephin for 6 weeks per ID rec Await further rec from ID Continue to monitor (2) Bacteremia due to Enterococcus: Code(s): R78.81 - Bacteremia; B95.2 - Enterococcus as the cause of diseases classified elsewhere Status: Acute Assessment and Plan: Clinically due to catheter-associated UTI. BCx growing enterococcus sensitive to ampicillin Please see above a/p for IV abx (3) Endocarditis: Code(s): I38 - Endocarditis, valve unspecified Status: Acute Assessment and Plan: Mod tricuspid vegetation noted on TTE with questionable Pacemaker lead involvement. MAYNOR shows highly mobile echodensity arising from TV leaflet consistent with vegetation; association with pacemaker lead could not be determinded due to reverberation artifact. ID recommending ampicillin/Rocephin for 6 weeks Patient okay for discharge from ID standpoint (4) CHF (congestive heart failure): Qualifiers: Heart failure chronicity: acute Heart failure type: unspecified Qualified Code(s): I50.9 - Heart failure, unspecified Code(s): I50.9 - Heart failure, unspecified Status: Chronic Assessment and Plan: Echo results as above. Patient states at home she is on Lasix 80 mg p.o. in the morning and supposed to be on 40 mg p.o. in the afternoon for which she does not take Will switch to PO Lasix She is on a 2 L fluid restriction diet at this time Monitor renal function in 1 week (5) Acute and chronic respiratory failure: Qualifiers: Respiratory failure complication: unspecified whether with hypoxia or hypercapnia Qualified Code(s): J96.20 - Acute and chronic respiratory failure, unspecified whether with hypoxia or hypercapnia Code(s): J96.20 - Acute and chronic respiratory failure, unspecified whether with hypoxia or hypercapnia Status: Acute Assessment and Plan: Presented with acute on chronic respiratory failure which was those likely secondary to acute CHF exacerbation. SARS-CoV-2 negative/ She is now resting on her home oxygen which is 3 L via nasal cannula. Continue diuresis while monitoring renal function (6) Hypokalemia: Code(s): E87.6 - Hypokalemia Status: Acute Assessment and Plan: Likely due to diuresis. K 3.9 today Will do BMP 1 week (7) Hyponatremia: Code(s): E87.1 - Hypo-osmolality and hyponatremia Status: Acute Assessment and Plan: Na 137 today. Likely due to CHF. She was initially started on IV fluids which were discontinued and she was placed on fluid restriction IV Lasix therapy BMP 1 week
[2020-04-15] MEDS: LACTULOSE 20 GM/30 ML UDC PO (17:01)
--- NOTE | 2020-04-15 17:15 | PC.NURSE ---
Attempted to discharge patient to [facility], unable to get patient in son's car. Patient returned to room and call placed to ambulance to [facility] picker.
[2020-04-15 18:27] LABS: Glucose Point of Care 125 (65-105)
== END 2020-04-15 19:30 | DRG 288 ==
LOC: ANHED 12:57 → ANH3MEDSUR 16:15
PROVIDERS: Family Medicine; Internal Medicine; Internal Medicine Cardiovascular Disease; Physician Assistant; Admitting Provider Family Medicine; Emergency Provider Emergency Medicine; Visit Provider Physician Assistant
PROC: B24BZZ4 Ultrasonography of Heart with Aorta, Transesophageal (ICD-10-PCS; CPT 93312; principal; 2020-04-14 11:00)
DX: I33.0 Acute and subacute infective endocarditis (principal); J96.21 Acute and chronic respiratory failure with hypoxia; I50.33 Acute on chronic diastolic (congestive) heart failure; T83.511A Infection and inflammatory reaction due to indwelling urethral catheter, initial encounter; R78.81 Bacteremia; E87.1 Hypo-osmolality and hyponatremia; J44.1 Chronic obstructive pulmonary disease with (acute) exacerbation; N39.0 Urinary tract infection, site not specified; Z23 Encounter for immunization; Z20.828 Contact with and (suspected) exposure to other viral communicable diseases; I11.0 Hypertensive heart disease with heart failure; B95.2 Enterococcus as the cause of diseases classified elsewhere; E11.65 Type 2 diabetes mellitus with hyperglycemia; Z99.81 Dependence on supplemental oxygen; I48.0 Paroxysmal atrial fibrillation; E87.6 Hypokalemia; N26.1 Atrophy of kidney (terminal); I25.10 Atherosclerotic heart disease of native coronary artery without angina pectoris; M25.551 Pain in right hip; Z79.01 Long term (current) use of anticoagulants; Z79.4 Long term (current) use of insulin; Z79.899 Other long term (current) drug therapy; Z88.1 Allergy status to other antibiotic agents; Z95.0 Presence of cardiac pacemaker; Z98.890 Other specified postprocedural states; Z91.81 History of falling
CPT/HCPCS: 36415; 36569; 36600; 71045; 71046; 76775; 80048; 80053; 80061; 81001; 82805; 83036; 83605; 83735; 83880; 84484; 85025; 85027; 85055; 85610; 85730; 86140; 87040; 87077; 87086; 87088; 87186; 87635; 90471; 90686; 93005; 93306; 93312; 93320; 93325; 94640; 96374; 96375; 97110; 97116; 97161; 97165; 97530; 97535; 99285; A9270; C1751; C9803; G0008; J0290; J0295; J0456; J0696; J1100; J1815; J1940; J2704; J2930; J7030; J7040; U0003

== ENCOUNTER 2020-04-26 11:14 | Inpatient (IN) | payer MEDICARE, SELFPAY ==
[2020-04-26] VITALS (11 sets, daily range): BP systolic 110–143; BP diastolic 44–67; PULSE 80–99; RESP 18–33; TEMP 36.2–37.1; O2SAT 92–100; BMI 38.6
--- NOTE | ~2020-04-26 | XR_ITS ---
EXAMINATION: XR chest 1V portable DATE: 04/27/2020 11:43 INDICATION: Shortness of breath. TECHNIQUE: A single frontal view of the chest was obtained. COMPARISON: Chest single view 04/26/2020 FINDINGS: There is a diffuse interstitial pattern in the lungs. There are mild airspace opacities in the mid and lower lung zones. There is mild scarring at the lung apices. There are small pleural effu sions. No pneumothorax. The heart size is normal. There are changes of heart valve replacement. There is a left chest pacer with leads in right atrium, right ventricle, and coronary sinus. A right upper extremity peripherally inserted central venous catheter (PICC) is seen with tip in the superior vena cava. IMPRESSION: 1. Worsened diffuse lung disease, likely moderate pulmonary edema. 2. Small pleural effusions. Reviewed, dictated and finalized at location A.
--- NOTE | ~2020-04-26 | CT_ITS ---
EXAMINATION:CT chest w con DATE: 04/30/2020 13:18 INDICATION: Shortness of breath. Tricuspid valve vegetation. TECHNIQUE: Computed tomography (CT) of the chest was performed with 75 mL Omnipaque 350 intravenous c ontrast. Automated exposure control and iterative reconstruction technique were employed. The dose-le ngth product (DLP) was 238.45 mGy-cm. COMPARISON: Chest single view 04/29/2020 FINDINGS: There are patchy groundglass and airspace opacities involving all lobes. There are small pl eural effusions, right worse than left. There is dependent atelectasis bilaterally. Cardiomegaly is n oted. There are changes of mitral valve replacement. There is a left chest pacer with leads in right atrium, right ventricle, and coronary sinus. No pericardial effusion. There is mild mediastinal and b ilateral hilar lymphadenopathy. A right upper extremity peripherally inserted central venous catheter (PICC) is seen with tip in superior vena cava. There is no pulmonary embolus, but sensitivity is mil dly decreased by motion artifact. There is thoracic dextroscoliosis and moderate spondylosis. IMPRESSION: 1. Diffuse lung disease, consistent with pulmonary edema versus pneumonia. 2. Small pleural effusions. 3. Cardiomegaly. 4. Mild mediastinal and bilateral hilar lymphadenopathy, likely reactive. Reviewed, dictated and finalized at location A.
--- NOTE | ~2020-04-26 | XR_ITS ---
EXAMINATION: XR chest 1V portable DATE: 04/26/2020 11:46 INDICATION: Shortness of breath. TECHNIQUE: A single frontal view of the chest was obtained. COMPARISON: Chest single view 04/15/2020, chest 2 views 08/22/2016, 04/12/2020 FINDINGS: There is a diffuse interstitial pattern, consistent with mild pulmonary edema. There are sm all pleural effusions. No pneumothorax. The heart size is normal. There are changes of heart valve re placement. There is a left chest wall pacer with leads in the right atrium and right ventricle. A rig ht upper extremity peripherally inserted central venous catheter (PICC) is seen with tip in the super ior vena cava. IMPRESSION: 1. Mild pulmonary edema. 2. Small pleural effusions. Reviewed, dictated and finalized at location A.
--- NOTE | ~2020-04-26 | XR_ITS ---
EXAMINATION: XR chest 2V DATE: 05/05/2020 20:24 INDICATION: Shortness of breath. Assess diuresis. TECHNIQUE: frontal and lateral views of the chest were obtained. COMPARISON: Chest radiograph dated 05/03/2020 FINDINGS: Interval improvement in the perihilar and lower lung predominant indistinct interstitial and patchy a irspace opacities consistent with improving pulmonary edema. Resolution of prior pleural effusions. N o pneumothorax. Cardiomegaly. Three lead pacemaker/AICD seen with leads projecting over the expected locations of the right atrial appendage, apex of the right ventricle and overlying the left ventricle likely having traversed the coronary sinus. Median sternotomy wires and mitral valve repair. Right u pper extremity peripherally inserted central venous catheter (PICC) tip at the caudal superior vena cava. Mild S-shaped thoracolumbar scoliosis with moderate spondylosis. IMPRESSION: 1. Improvement in bilateral perihilar and lower lung predominant interstitial and airspace opacities most likely improving pulmonary edema with differential including less likely pneumonia. Reviewed, dictated and finalized at location A. IMPRESSION: 1. Improvement in bilateral perihilar and lower lung predominant interstitial a nd airspace opacities most likely improving pulmonary edema with differential i ncluding less likely pneumonia.
--- NOTE | ~2020-04-26 | XR_ITS ---
EXAMINATION: XR chest 1V portable EXAM DATE: 05/03/2020 06:06 INDICATION: Seizure exacerbation. TECHNIQUE: Portable AP frontal chest x-ray was obtained. Comparison is made to prior examination from 04/29/2020, 04/27, 04/26. FINDINGS: Triple lead pacemaker/AICD device. Sternotomy wires are present without findings to suggest sternal dehiscence. Cardiac valve replacement. Again there is extensive abnormal reticulation, appea tea most consistent with pulmonary edema. Infection not excludable. Relative sparing of the upper l obes compared to the lower lobes. Small pleural effusions likely. No pneumothorax. There are bony deg enerative changes. IMPRESSION: Rather extensive acute airspace disease most consistent with pulmonary edema. Infection n ot excludable. Mild interval progression compared to prior studies. Reviewed, dictated and finalized at location A. IMPRESSION: Rather extensive acute airspace disease most consistent with pulmon truman edema. Infection not excludable. Mild interval progression compared to prio r studies.
--- NOTE | ~2020-04-26 | XR_ITS ---
EXAMINATION: XR chest 1V portable EXAM DATE: 04/29/2020 10:54 INDICATION: Shortness of breath. TECHNIQUE: Portable AP frontal chest x-ray was obtained. Comparison is made to prior examination from 04/27/2020. FINDINGS: Multilead pacemaker. Sternotomy wires are present without findings to suggest sternal dehis cence. Cardiac valve replacement. There is indistinct reticulation with a which may indicate pulmonar y edema. Pneumonia not excludable. Small pleural effusions. Cardiac silhouette is stable in size comp ared to prior exam. There is no pneumothorax suspected. There are bony degenerative changes. There is no significant interval change. IMPRESSION: 1. Moderate abnormal reticulation, small pleural effusions. Probably pulmonary edema. 2. Infection not excludable. 3. Reviewed, dictated and finalized at location B.
--- NOTE | 2020-04-26 11:29 | ECG_ITS ---
Measurements Intervals [place] Rate: 80 P: 226 LA: 127 QRS: 260 QRSD: 186 T: 78 QT: 504 QTc: 582 Interpretive Statements ELECTRONIC ATRIAL PACEMAKER ELECTRONIC VENTRICULAR PACEMAKER BASELINE ARTIFACT- I, III, AVR, AVL, AVF, V1-V6 NO FURTHER INTERPRETATION IS POSSIBLE ATYPICAL ECG Electronically Signed On 04-26-2020 11:34:47 CDT by Prasad Ohara D.O.
--- NOTE | 2020-04-26 11:39 | PC.NURSE ---
Patient is crying and upset in the room, patient appears to have anxiety and states [facility] just [facility], they wont even give me a bath today.
--- NOTE | 2020-04-26 11:53 | PC.NURSE ---
Per policy, unable to obtain labs from PICC until after CXR and order of okay to use. CXR ordered.
--- NOTE | 2020-04-26 12:26 | ED.SOB ---
HPI - SOB/Dyspnea General Chief Complaint: Shortness of Breath/Dyspnea Stated Complaint: SOB Time Seen by Provider: 04/26/20 12:10 Source: patient History of Present Illness HPI Narrative: Patient is 84 y/o female complaining of shortness of breath for last 5-6 days. She states that her SOB is moderate to severe and it's worse with supine position. She state that she has difficulty with sleep due to shortness. She also has leg swelling, cough with and subjective fever, although there is no known documented fever. Of note, she was recently diagnosed with endocarditis and she is receiving IV Ampicillin and Rocephin. Related Data Home Medications Medication Instructions Recorded Confirmed Eliquis 2.5 mg PO BID 04/07/20 04/07/20 Glucagon (HCl) Emergency Kit 1 mg SUBCUT Q20M PRN 04/07/20 04/26/20 Humulin R Regular U-100 Insuln See Rx Instructions .ROUTE .COMPLEX 04/07/20 04/07/20 acetaminophen 650 mg PO Q4-6H PRN 04/07/20 04/26/20 acidophilus-pectin, citrus 2 cap PO BID 04/07/20 04/26/20 [Acidophilus Probiotic] albuterol sulfate 2 puff INHALATION Q4H PRN 04/07/20 04/26/20 alum-mag hydroxide-simeth 30 ml PO Q8-10H PRN 04/07/20 04/26/20 amiodarone 200 mg PO BID 04/07/20 04/26/20 diltiazem HCl 240 mg PO DAILY 04/07/20 04/26/20 ipratropium-albuterol 3 ml INHALATION Q6H 04/07/20 04/26/20 levothyroxine 75 mcg PO DAILY 04/07/20 04/07/20 metoprolol tartrate 25 mg PO BID 04/07/20 04/26/20 nitroglycerin 0.4 mg SUBLINGUAL Q5MIN PRN 04/07/20 04/26/20 sennosides [Senna Lax] 17.2 mg PO HS PRN 04/07/20 04/07/20 tramadol 50 mg PO Q8H PRN 04/07/20 04/07/20 Allergies Allergy/AdvReac Type Severity Reaction Status Date / Time sulfamethoxazole Allergy Mild Unknown Verified 04/26/20 11:28 trimethoprim Allergy Mild Unknown Verified 04/26/20 11:28 cefazolin Allergy Unknown Unknown Verified 04/26/20 11:28 lisinopril Allergy Unknown Unknown Verified 04/26/20 11:28 metformin Allergy Unknown Unknown Verified 04/26/20 11:28 CEFAZOLIN SODIUM Allergy Unknown Unknown Uncoded 04/26/20 11:28 Contrast Media AdvReac Unknown NAUSEA Uncoded 04/26/20 11:28 Review of Systems Constitutional: Constitutional: Denies chills, Denies fever(s), Denies headache(s) and Denies weakness Eyes: Eyes: Denies blurry vision ENT: Denies headache(s) and Denies neck pain Cardiovascular: Cardiovascular: Denies chest pain, Reports pedal edema, Reports leg edema and Reports dyspnea Respiratory: Respiratory: Reports cough and Reports dyspnea Gastrointestinal: Gastrointestinal: Denies abdominal pain, Denies diarrhea, Denies nausea and Denies vomiting Genitourinary: Genitourinary: Denies hematuria and Denies dysuria Musculoskeletal: Musculoskeletal: Denies back pain and Denies neck pain Neurologic: Denies headache(s) and Denies weakness PMFSH Past Medical History Medical History Atrial fibrillation CAD (coronary artery disease) CHF (congestive heart failure) COPD (chronic obstructive pulmonary disease) HTN (hypertension) Pacemaker Type 2 diabetes mellitus with hyperglycemia, without long-term current use of insulin Surgical History Surgical History H/O mitral valve repair Family History Family History Mother Dementia Father Kidney disease Social History Social History Smoking status: Never smoker Alcohol intake: never Substance use: never Substance use type: does not use Spiritual care concerns: No Exam Const: General: no acute distress and well developed Orientation/consciousness: oriented to person, oriented to place, oriented to time and patient oriented x3 HENMT: Head: normocephalic Ears: external ears normal General nose exam: Normal external nose present Eyes: General: appearance normal, both eyes and all related structures Conjunctivae:
[2020-04-26] MEDS: FUROSEMIDE INJ 40 MG/4 ML VIAL IV PUSH (12:40)
[2020-04-26 12:41] LABS: Basophils Absolute Auto 0.1 K/mm3 (0.0-0.1); Basophils Percent Auto 1.2 % (0.2-1.2); Eosinophils Absolute Auto 0.4 K/mm3 (0-0.3); Eosinophils Percent Auto 4.9 % (0-4.4); Hematocrit 33.6 % (37.0-47.0); Hemoglobin 10.6 g/dL (12.0-15.0); Immature Granulocyte Absolute 0.04 K/mm3 (0.00-0.031); Immature Granulocyte Percent A 0.4 % (0-0.5); Lymphocytes Absolute Auto 1.56 K/mm3 (0.9-3.2); Lymphocytes Percent Auto 17.4 % (18.3-44.2); Mean Corpuscular HGB Conc 31.5 g/dl (32-36); Mean Corpuscular Hemoglobin 29.1 pg (26-34); Mean Corpuscular Volume 92.3 fl (80-100); Mean Platelet Volume 11.3 fl (7.4-10.4); Monocytes Percent Auto 10.6 % (2.6-8.5); Neutrophils Absolute Auto 5.9 K/mm3 (1.3-6.7); Neutrophils Percent Auto 65.5 % (45.5-73.1); Platelet Count Result 196 k/mm3 (150-375); Red Blood Count 3.64 M/mm3 (4.2-5.4); Red Cell Distribution Width 15.3 % (11.5-14.5)
[2020-04-26 12:52] LABS: Anion Gap 3 mmol/L (8-16); Blood Urea Nitrogen 8 mg/dL (7-17); Calcium 6.6 mg/dL (8.4-10.2); Carbon Dioxide 25 mmol/L (22-30); Chloride 107 mmol/L (98-107); Estimated Glomerular Filt Rate > 60; Glucose 84 mg/dL (65-105); Potassium 3.3 mmol/L (3.4-5.0); Sodium 135 mmol/L (137-145)
[2020-04-26 13:03] LABS: Add Urine Microscopic? NO; Appearance Urine Clear (Clear); Bilirubin Urine Negative (Negative); Blood Urine Negative (Negative); Color Urine Yellow (Yellow); Glucose Urine UA Negative (Negative); Ketones Urine Negative (Negative); Leukocyte Esterase Ur Negative LEU/UL (Negative); Nitrate Urine Negative (Negative); Protein Urine Negative (Negative); Specific Grav Ur 1.011 (1.001-1.035); Urobilinogen Urine Negative mg/dL (<2.0)
--- NOTE | 2020-04-26 13:09 | PC.NURSE ---
Patient refusing to take any medications at this time, reporting that she will do that later. patient is concerned about her oxygen levels and educated that on her normal 4L of oxygen her stat is at 100%
[2020-04-26 13:21] LABS: NT Pro B Type Natriuretic Pept 4160 PG/ML (5-100); Troponin I 0.013 ng/mL (0.000-0.034)
[2020-04-26 15:54] LABS: Troponin I < 0.012 ng/mL (0.000-0.034)
--- NOTE | 2020-04-26 16:57 | ADMGEN ---
This patient, Renu Harvey, was admitted to 3 Med Surg Room 330-01. Patient/family oriented to hospital policies and general routines including ID bracelet, bed and alarms, visiting hours, pain management, procedures, bathroom and other care routines, personal items, smoking policy, room service/diet, and visiting hours. Valuables list has been completed. Information on how to activate the Rapid Response Team has been discussed. Patient/Family are encouraged to report perceived risks to care and to ask questions if they do not understand what they are told or what they should do.
--- NOTE | 2020-04-26 18:00 | PM.IMHP ---
H&P: HPI History of Present Illness Date/Time: 04/26/20 18:00 Chief complaint: Shortness of breath. Narrative: Renu Harvey is an 84-year-old female multiple medical problems including chronic respiratory failure, COPD, Obstructive sleep apnea, congestive heart failure, paroxysmal atrial fibrillation, type 2 diabetes mellitus, and several other comorbidities who presented to the emergency department earlier today via EMS from [facility] for evaluation of shortness of breath. She is known to the hospitalist service with a recent admission from 04/07 through 04/15 in which she initially presented with shortness of breath and hypoxia. She was treated for catheter associated urinary tract infection but was also found to have bacteremia, with blood cultures growing Enterococcus faecalis. MAYNOR showed a vegetation from a tricuspid valve leaflet for which she was discharged on antibiotics for 6 weeks to include ampicillin and ceftriaxone. She felt okay for the 1st several days [facility] however over the past 4 days she notes increasing lower extremity edema, orthopnea, and shortness of breath on lesser and lesser exertion. She has also had a cough which is not really productive, subjective fever, and decreased appetite due to decrease in taste. Her anxiety has also been quite high, and it seems to make her feelings of shortness of breath worse. She had is been started on Ativan which seems to help somewhat. With further questioning she mentions rare dysphagia but denies concerns for aspiration. She has not had headache, sinus congestion, rhinorrhea, otalgia, odynophagia, nausea, vomiting, diarrhea, or dysuria. Review of Systems Review of Systems: Narrative: Twelve systems were reviewed with pertinent positives and negatives as per HPI. Except as documented, all other systems were reviewed and are negative. [facility] Past Medical History Medical History (Updated 04/26/20 @ 23:12 by Eliane Parmar PA-C) Anxiety Bacteremia due to Enterococcus (~04/2020) Chronic obstructive pulmonary disease Chronic respiratory failure with hypoxia, on home oxygen therapy On 3 L nasal cannula. Diastolic congestive heart failure MAYNOR on 04/07/2020 showed a normal left ventricular size and function with ejection fraction estimated at 60 to 65%, mildly increased left ventricular wall thickness, abnormal diastolic function, severe biatrial enlargement, mild stenosis of annuloplasty ring prostatic mitral valve with mild regurgitation, moderate to severe tricuspid regurgitation with a moderate-size vegetation on the tricuspid valve, and moderate pulmonary hypertension. 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 Essential hypertension Fracture of right hip (~03/2020) Hospitalized at [facility]. Non operative treatment. Gastroesophageal reflux disease Hypothyroidism Moderate pulmonary arterial systolic hypertension Noted on MAYNOR 04/07/2020 with an estimated pulmonary arterial systolic pressure of 54 mmHg. Obstructive sleep apnea on CPAP Osteoporosis Paroxysmal atrial fibrillation On apixaban for stroke prophylaxis. 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 Type 2 diabetes mellitus Valvular heart disease Status post mitral valve annuloplasty. Surgical History Surgical History (Updated 04/26/20 @ 23:06 by Eliane Parmar PA-C) History of pacemaker Status post mitral valve annuloplasty Family History Family History Mother Dementia Father Kidney disease Social History Social History (Updated 04/26/20 @ 23:08 by Eliane Parmar PA-C) Social History: Surrogate decision maker: Ryan Garza, son. Code status: Full code. Smoking status: Former smoker Alcohol intake: never Substance use: never Substance use type: does not use Additional living arrangements comments: Currently undergoing rehab at [facility].
--- NOTE | 2020-04-26 19:33 | PC.NURSE ---
Called [facility] to confirm pt medication list. List was up to date exept prn Ativan 0.5mg po Q12 hours for Anxiety.
[2020-04-26 20:24] LABS: SARS-CoV-2 RNA PCR Negative
[2020-04-26] MEDS: ALBUTEROL SULFATE (*SP) AEROSOL 1 PUFF 2 PUFF INHALATION (20:28)
[2020-04-26] MEDS: AMIODARONE HCL 200 MG TABLET PO (20:30)
[2020-04-26] MEDS: METOPROLOL TARTRATE 25 MG TABLET PO (20:31)
[2020-04-26] MEDS: AMPICILLIN 1 GM/NS 50 ML 1 GM/50 ML BAG IVPB (20:31)
[2020-04-26] MEDS: APIXABAN 2.5 MG TABLET PO (20:31)
[2020-04-26] MEDS: CENTRAL LINE FLUSH 10 ML IV PUSH (22:10)
[2020-04-26 22:43] LABS: Glucose Point of Care 176 (65-105)
[2020-04-27] VITALS (20 sets, daily range): BP systolic 91–128; BP diastolic 48–76; PULSE 80–115; RESP 20–38; TEMP 35.8–37.2; O2SAT 90–100
[2020-04-27] MEDS: AMPICILLIN 1 GM/NS 50 ML 1 GM/50 ML BAG IVPB ×6 (00:30→21:09)
[2020-04-27] MEDS: FUROSEMIDE INJ 40 MG/4 ML VIAL IV PUSH ×2 (00:30→13:11)
[2020-04-27] MEDS: LORazepam (*CRX) 0.5 MG TABLET PO ×2 (03:02→14:07)
[2020-04-27] MEDS: LEVOTHYROXINE SODIUM 75 MCG TABLET PO (05:37)
[2020-04-27] MEDS: CENTRAL LINE FLUSH 10 ML IV PUSH ×3 (06:40→21:09)
[2020-04-27 07:15] LABS: Alanine Aminotransferase 17 U/L (4-35); Alkaline Phosphatase 111 U/L (38-126); Anion Gap 5 mmol/L (8-16); Aspartate Amino Transferase 38 U/L (14-36); Bilirubin,Total 0.9 mg/dL (0.2-1.3); Blood Urea Nitrogen 10 mg/dL (7-17); Calcium 8.2 mg/dL (8.4-10.2); Carbon Dioxide 32 mmol/L (22-30); Chloride 99 mmol/L (98-107); Estimated Glomerular Filt Rate > 60; Glucose 114 mg/dL (65-105); Magnesium 1.7 mg/dL (1.6-2.3); Potassium 3.5 mmol/L (3.4-5.0); Sodium 136 mmol/L (137-145)
[2020-04-27 07:16] LABS: Hemoglobin A1C 5.8 % (<5.7)
[2020-04-27] MEDS: FUROSEMIDE INJ 40 MG/4 ML VIAL (07:56)
[2020-04-27] MEDS: METOPROLOL TARTRATE 25 MG TABLET PO ×2 (07:57→21:09)
[2020-04-27] MEDS: AMIODARONE HCL 200 MG TABLET PO ×2 (07:57→18:06)
[2020-04-27] MEDS: APIXABAN 2.5 MG TABLET PO ×2 (07:58→18:06)
--- NOTE | 2020-04-27 07:59 | PC.NURSE ---
At 2014, I adminstered pt meds/assessed her and noted respirations at 28, increased WOB, pulmonary congestion and wetness, and anxiety. Educated pt on relaxation, pursed lip breathing, focusing on inhaling through the nose and exhaling out the mouth. Pt continued to be anxious. Contacted Deepthi. Notified her of pt status at 2030. Received order for a dose of lasix at 2255, as well as other medications. Pt calm and sleeping at 2315. At various times throughout the night, pt became anxious and requested nebulizing treatment. Passed on in report that pt could benefit from nebs now that pt is covid negative, could benefit from Q6H antianxiolytics, and need for continuing education on pt coping/breathing techniques.
[2020-04-27] MEDS: ALBUTEROL SULFATE NEB 2.5 MG/0.5 ML INH 5 MG INHALATION ×4 (08:10→20:50)
[2020-04-27] MEDS: IPRATROPIUM BR 0.02% INH SOLN 0.5 MG/2.5 ML VIAL INHALATION ×4 (08:30→20:50)
[2020-04-27] MEDS: POTASSIUM CHLORIDE 20 MEQ TABLET.ER PO (08:46)
[2020-04-27] MEDS: POTASSIUM CHLORIDE 20 MEQ TABLET PO (08:46)
[2020-04-27 10:48] LABS: Glucose Point of Care 108 (65-105)
[2020-04-27 11:50] LABS: Alveolar/Arterial O2 Gradient 152.9 mmHg; Base Excess ABG 3.7 mEq/l (+/-2.0); Carboxyhemoglobin 0.5 % THb (0-2.0); Fractional Inspired Oxygen 36 %; HCO3 ABG 28.5 mEq/l (22.0-26.0); Methemoglobin ABG 0.2 %THb (0-1.5); Modified Allen's Test Pass; Oxygen Content ABG 14.4 %vol (16.0-22.0); Oxygen Saturation ABG 87.9 % (95.0-100.0); Oxyhemoglobin 86.3 % THb (90.0-100.0); PCO2 ABG 44.1 mmHg (35.0-45.0); PO2 ABG 52.6 mmHg (80.0-100.0); PO2 FiO2 Ratio Arterial Blood 1.46 %; Site Drawn LEFT RADIAL; Total Hemoglobin 11.9 g/dL (12.0-18.0); pH ABG 7.429 (7.350-7.450)
[2020-04-27 11:51] LABS: Device NASAL CANNULA
--- NOTE | 2020-04-27 11:55 | PM.IMPN ---
Progress Note: A&P Assessment and Plan (1) CHF exacerbation: Code(s): I50.9 - Heart failure, unspecified Status: Acute Assessment and Plan: Patient has appeared to have worsened CHF exacerbation overnight. Tachypneic with increase work of breathing. Now turned up to 4L O2. Was refusing BiPAP/CPAP. Her tachypnea improved during our visit. Repeat CXR appears to have worsened since last night. ABG on 4L shows normal pH, pO2 of 52.6, pCO2 of 44.1, HCO3 28.5, but elevated reduced hemoglobin, however. Discussed case with collaborative physician, Dr. Gonzalez who came to evaluate patient with me Will do one time dose of Lasix 40 mg now; will consider increasing to 60 mg BID this evening if now improvement and if BP allows Will start fluid restriction, low sodium diet Monitor closely; move to IMU for further care respiratory following. Scheduled breathing treatments (2) Chronic respiratory failure with hypoxia, on home oxygen therapy: Code(s): J96.11 - Chronic respiratory failure with hypoxia; Z99.81 - Dependence on supplemental oxygen Status: Acute Assessment and Plan: Typically on 4 L O2 at NF, although last hospital stay she was noted to be on 3L Supplemental O2 as needed, wean to home O2 as tolerated Monitor Treat acute CHF exacerbation, and possible COPD exacerbation (3) Chronic obstructive pulmonary disease: Code(s): J44.9 - Chronic obstructive pulmonary disease, unspecified Status: Acute Assessment and Plan: Wheezing, coarse breath sounds noted on exam. 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 Gomes if she has not already done so since previous admission Monitor (5) Paroxysmal atrial fibrillation: Code(s): I48.0 - Paroxysmal atrial fibrillation Status: Acute Assessment and Plan: on amiodarone and metoprolol; eliquis as well. Tachycardic this morning Continue home medications Monitor Consider adjusting metoprolol if continued tachycardia (6) Diastolic congestive heart failure: Code(s): I50.30 - Unspecified diastolic (congestive) heart failure Status: Acute Assessment and Plan: Please see above a/p. Normal EF with diastolic dysfunction noted on MAYNOR/TTE on previous hospital stay earlier this month. Discharged on 40 mg Lasix daily; this will likely need to be adjusted at discharge to at least 40 mg BID (7) Essential hypertension: Code(s): I10 - Essential (primary) hypertension Status: Acute Assessment and Plan: Last BP documented is 110s sys last night Continue home meds Monitor (8) Obstructive sleep apnea on CPAP: Code(s): G47.33 - Obstructive sleep apnea (adult) (pediatric); Z99.89 - Dependence on other enabling machines and devices Status: Acute Assessment and Plan: Patient has been refusing BiPAP/CPAP today Continue if tolerated (9) Hypokalemia: Code(s): E87.6 - Hypokalemia Status: Acute Assessment and Plan: K 3.5 this morning; replaced Monitor replace as needed
[2020-04-27 12:58] LABS: NT Pro B Type Natriuretic Pept 5630 PG/ML (5-100)
--- NOTE | 2020-04-27 13:02 | PC.NURSE ---
This patient, Renu Harvey, was received from [[id number]] on 04/27/20 at 1302. REPORT RECEIVED FROM CLEMENCIA QUINONES. Personal belongings list checked and signed. Patient/family oriented to unit policies and routines
[2020-04-27 13:33] LABS: Glucose Point of Care 100 (65-105)
[2020-04-27] MEDS: FLUTICASONE PROPIONATE 0.05% NA SPR 16 GM BTL (*BKC) 1 SPRAY NASAL ×2 (14:18→21:09)
--- NOTE | 2020-04-27 15:47 | PC.NURSE ---
1200 CALLED SON YOUSIF ASNCHEZ AND TOLD OF PT'S CONDITION AND TRANSFER TO IMU.
--- NOTE | 2020-04-27 15:48 | PC.NURSE ---
This patient, Renu Harvey, was transferred to [ ] on 04/27/20 at 1250. Personal belongings sent with patient. Belongings list checked and signed with receiving [IMU]. Report given to [ MARIELA]. Appropriate documentation sent with patient.
[2020-04-27 17:00] LABS: Glucose Point of Care 108 (65-105)
[2020-04-27] MEDS: ACIDOPHILUS/BULGARICUS CHEWABLE TABLET 2 TABLET PO (18:06)
[2020-04-27] MEDS: FUROSEMIDE INJ 100 MG/10 ML VIAL 60 MG IV PUSH (18:07)
[2020-04-27 20:10] LABS: Glucose Point of Care 92 (65-105)
[2020-04-28] VITALS (25 sets, daily range): BP systolic 98–142; BP diastolic 45–61; PULSE 80–104; RESP 20–43; TEMP 36.3–36.8; O2SAT 89–100
[2020-04-28] MEDS: AMPICILLIN 1 GM/NS 50 ML 1 GM/50 ML BAG IVPB ×6 (00:22→21:53)
[2020-04-28] MEDS: ALBUTEROL SULFATE NEB 2.5 MG/0.5 ML INH 5 MG INHALATION ×4 (02:03→20:19)
[2020-04-28] MEDS: IPRATROPIUM BR 0.02% INH SOLN 0.5 MG/2.5 ML VIAL INHALATION ×4 (02:03→20:19)
[2020-04-28] MEDS: CENTRAL LINE FLUSH 10 ML IV PUSH ×3 (05:22→21:53)
[2020-04-28] MEDS: LEVOTHYROXINE SODIUM 75 MCG TABLET PO (06:31)
[2020-04-28 07:55] LABS: Glucose Point of Care 115 (65-105)
--- NOTE | 2020-04-28 08:03 | PM.IMPN ---
Progress Note: A&P Assessment and Plan (1) CHF exacerbation: Code(s): I50.9 - Heart failure, unspecified Status: Acute Assessment and Plan: Patient able to tolerate BiPAP overnight. Still anxious appearing today. Slight improvement in lung exam, although still significant coarse breath sounds in all lung tse. Repeat CXR 04/27 appears to have worsened since admission. ABG on 4L shows normal pH, pO2 of 52.6, pCO2 of 44.1, HCO3 28.5, but elevated reduced hemoglobin, however. BP soft overnight Will lower Lasix to 40 mg BID; instructed RN to hold this am if BP still soft Continue fluid restriction, low sodium diet Monitor closely Respiratory following. Scheduled breathing treatments (2) Chronic respiratory failure with hypoxia, on home oxygen therapy: Code(s): J96.11 - Chronic respiratory failure with hypoxia; Z99.81 - Dependence on supplemental oxygen Status: Acute Assessment and Plan: Typically on 4 L O2 at NF, although last hospital stay she was noted to be on 3L Supplemental O2 as needed, wean to home O2 as tolerated Monitor Treat acute CHF exacerbation, and possible COPD exacerbation (3) Chronic obstructive pulmonary disease: Code(s): J44.9 - Chronic obstructive pulmonary disease, unspecified Status: Acute Assessment and Plan: Coarse breath sounds noted on exam. 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 Gomes if she has not already done so since previous admission Monitor (5) Paroxysmal atrial fibrillation: Code(s): I48.0 - Paroxysmal atrial fibrillation Status: Acute Assessment and Plan: on amiodarone and metoprolol; eliquis as well. Tachycardic this morning Continue home medications Monitor Consider adjusting metoprolol if continued tachycardia (6) Diastolic congestive heart failure: Code(s): I50.30 - Unspecified diastolic (congestive) heart failure Status: Acute Assessment and Plan: Please see above a/p. Normal EF with diastolic dysfunction noted on MAYNOR/TTE on previous hospital stay earlier this month. Discharged on 40 mg Lasix daily last hospital stay; this will likely need to be adjusted at discharge to at least 40 mg BID (7) Essential hypertension: Code(s): I10 - Essential (primary) hypertension Status: Acute Assessment and Plan: Last BP in 90s sys early this morning Continue home meds Hold Lasix if still soft Monitor (8) Obstructive sleep apnea on CPAP: Code(s): G47.33 - Obstructive sleep apnea (adult) (pediatric); Z99.89 - Dependence on other enabling machines and devices Status: Acute Assessment and Plan: Patient has been refusing BiPAP/CPAP today Continue if tolerated (9) Hypokalemia: Code(s): E87.6 - Hypokalemia Status: Acute Assessment and Plan: Labs not yet drawn today. K replaced yesterday Monitor Continue 40 KCl daily during diuresis Replace as needed (10) Hypothyroidism: Code(s): E03.9 - Hypothyroidism, unspecified Status: Acute Assessment and Plan: TSH WNL continue home regimen
[2020-04-28] MEDS: FLUTICASONE PROPIONATE 0.05% NA SPR 16 GM BTL (*BKC) 1 SPRAY NASAL ×2 (09:50→21:53)
[2020-04-28] MEDS: SALINE 0.65% NAS SOLN 44 ML BTL 1 SPRAY NASAL ×2 (09:50→21:53)
[2020-04-28] MEDS: SODIUM CHLORIDE NASAL GEL 14.1 GM 1 APPLIC NASAL (09:50)
[2020-04-28] MEDS: FUROSEMIDE INJ 40 MG/4 ML VIAL IV PUSH ×2 (09:52→17:55)
[2020-04-28 11:24] LABS: Glucose Point of Care 143 (65-105)
[2020-04-28 15:15] LABS: Hematocrit 31.8 % (37.0-47.0); Hemoglobin 9.9 g/dL (12.0-15.0); Mean Corpuscular HGB Conc 31.1 g/dl (32-36); Mean Corpuscular Hemoglobin 29.6 pg (26-34); Mean Corpuscular Volume 94.9 fl (80-100); Mean Platelet Volume 11.1 fl (7.4-10.4); Platelet Count Result 176 k/mm3 (150-375); Red Blood Count 3.35 M/mm3 (4.2-5.4); Red Cell Distribution Width 15.7 % (11.5-14.5); White Blood Count 8.9 K/mm3 (4.5-10.0)
[2020-04-28 15:28] LABS: Alanine Aminotransferase 15 U/L (4-35); Albumin Level 2.8 g/dL (3.5-5.1); Alkaline Phosphatase 98 U/L (38-126); Anion Gap 3 mmol/L (8-16); Aspartate Amino Transferase 40 U/L (14-36); Blood Urea Nitrogen 12 mg/dL (7-17); Calcium 8.2 mg/dL (8.4-10.2); Carbon Dioxide 35 mmol/L (22-30); Chloride 98 mmol/L (98-107); Estimated Glomerular Filt Rate > 60; Glucose 149 mg/dL (65-105); Magnesium 1.7 mg/dL (1.6-2.3); Potassium 3.5 mmol/L (3.4-5.0); Sodium 136 mmol/L (137-145)
[2020-04-28 17:01] LABS: Glucose Point of Care 117 (65-105)
[2020-04-28] MEDS: APIXABAN 2.5 MG TABLET PO (17:55)
[2020-04-28 21:51] LABS: Glucose Point of Care 122 (65-105)
[2020-04-28] MEDS: POTASSIUM CHLORIDE 20 MEQ PACKET (FOR LIQUID) 40 MEQ PO (21:52)
[2020-04-29] VITALS (31 sets, daily range): BP systolic 120–148; BP diastolic 40–72; PULSE 80–115; RESP 12–40; TEMP 35.3–36.8; O2SAT 90–100
[2020-04-29] MEDS: AMPICILLIN 1 GM/NS 50 ML 1 GM/50 ML BAG IVPB ×6 (01:05→20:10)
[2020-04-29] MEDS: LORazepam INJ (*CRX) 2 MG/ML VIAL 0.5 MG IV PUSH ×3 (01:21→20:18)
[2020-04-29] MEDS: IPRATROPIUM BR 0.02% INH SOLN 0.5 MG/2.5 ML VIAL INHALATION ×4 (01:51→20:27)
[2020-04-29] MEDS: ALBUTEROL SULFATE NEB 2.5 MG/0.5 ML INH 5 MG INHALATION ×4 (01:51→20:27)
[2020-04-29] MEDS: LEVOTHYROXINE SODIUM 75 MCG TABLET PO (05:28)
[2020-04-29 05:38] LABS: Hematocrit 32.5 % (37.0-47.0); Hemoglobin 9.9 g/dL (12.0-15.0); Mean Corpuscular HGB Conc 30.5 g/dl (32-36); Mean Corpuscular Volume 95.3 fl (80-100); Platelet Count Result 234 k/mm3 (150-375); Red Blood Count 3.41 M/mm3 (4.2-5.4); Red Cell Distribution Width 15.5 % (11.5-14.5)
[2020-04-29] MEDS: CENTRAL LINE FLUSH 10 ML IV PUSH ×5 (05:52→21:24)
[2020-04-29] MEDS: CENTRAL LINE FLUSH 20 ML IV PUSH (05:53)
[2020-04-29 05:57] LABS: Anion Gap 5 mmol/L (8-16); Blood Urea Nitrogen 12 mg/dL (7-17); Calcium 8.1 mg/dL (8.4-10.2); Carbon Dioxide 34 mmol/L (22-30); Chloride 97 mmol/L (98-107); Estimated Glomerular Filt Rate 60; Glucose 108 mg/dL (65-105); Magnesium 1.6 mg/dL (1.6-2.3); Potassium 3.3 mmol/L (3.4-5.0); Sodium 136 mmol/L (137-145)
[2020-04-29] MEDS: traMADol HCL (*CRX) 50 MG TABLET PO (06:00)
[2020-04-29 08:23] LABS: Glucose Point of Care 107 (65-105)
[2020-04-29] MEDS: APIXABAN 2.5 MG TABLET PO ×2 (09:12→16:45)
[2020-04-29] MEDS: FLUTICASONE PROPIONATE 0.05% NA SPR 16 GM BTL (*BKC) 1 SPRAY NASAL (09:12)
[2020-04-29] MEDS: AMIODARONE HCL 200 MG TABLET PO ×2 (09:12→16:45)
[2020-04-29] MEDS: ACIDOPHILUS/BULGARICUS CHEWABLE TABLET 2 TABLET PO ×2 (09:12→16:45)
[2020-04-29] MEDS: FUROSEMIDE INJ 40 MG/4 ML VIAL IV PUSH (09:12)
[2020-04-29] MEDS: METOPROLOL TARTRATE 25 MG TABLET PO ×2 (09:12→20:12)
[2020-04-29 11:48] LABS: Glucose Point of Care 142 (65-105)
[2020-04-29] MEDS: FUROSEMIDE INJ 40 MG/4 ML VIAL 20 MG IV PUSH (12:41)
--- NOTE | 2020-04-29 15:30 | PCRCNOTE ---
At 1510 pt pulled off bipap mask and said she didn't want it. RN put pt on 4L O2 at this time.
[2020-04-29 16:05] LABS: Glucose Point of Care 121 (65-105)
[2020-04-29 16:16] LABS: Alveolar/Arterial O2 Gradient 129.8 mmHg; Base Excess ABG 5.7 mEq/l (+/-2.0); Fractional Inspired Oxygen 36 %; HCO3 ABG 32.2 mEq/l (22.0-26.0); Oxygen Content ABG 14.1 %vol (16.0-22.0); Oxygen Saturation ABG 90.5 % (95.0-100.0); Oxyhemoglobin 89.6 % THb (90.0-100.0); PCO2 ABG 56.4 mmHg (35.0-45.0); PO2 ABG 61.5 mmHg (80.0-100.0); PO2 FiO2 Ratio Arterial Blood 1.71 %; Total Hemoglobin 11.2 g/dL (12.0-18.0); pH ABG 7.374 (7.350-7.450)
[2020-04-29 16:17] LABS: Device NASAL CANNULA; Modified Allen's Test Pass; Site Drawn LEFT RADIAL
--- NOTE | 2020-04-29 16:25 | PM.IMPN ---
Progress Note: A&P Assessment and Plan (1) CHF exacerbation: Code(s): I50.9 - Heart failure, unspecified Status: Acute Assessment and Plan: Patient able to tolerate BiPAP PRN only, ABG and CXR repeated switch to BUMEX BID and metazolone. Cardiology consulted (2) Chronic respiratory failure with hypoxia, on home oxygen therapy: Code(s): J96.11 - Chronic respiratory failure with hypoxia; Z99.81 - Dependence on supplemental oxygen Status: Acute Assessment and Plan: Treat for acute CHF exacerbation with DIURESIS IV (3) Chronic obstructive pulmonary disease: Code(s): J44.9 - Chronic obstructive pulmonary disease, unspecified Status: Chronic Assessment and Plan: CHronic history of COPD Continue with scheduled nebs PRN albuterol symbicort Q12 hr (4) Endocarditis: Onset Date: ~04/2020 Code(s): I38 - Endocarditis, valve unspecified Status: Acute Assessment and Plan: 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 Gomes Pt had Echo here (5) Paroxysmal atrial fibrillation: Code(s): I48.0 - Paroxysmal atrial fibrillation Status: Chronic Assessment and Plan: on amiodarone and metoprolol and eliquis (6) Diastolic congestive heart failure: Code(s): I50.30 - Unspecified diastolic (congestive) heart failure Status: Chronic Assessment and Plan: Normal EF with diastolic dysfunction noted on MAYNOR/TTE (7) Essential hypertension: Code(s): I10 - Essential (primary) hypertension Status: Chronic Assessment and Plan: continue to monitor BPs (8) Obstructive sleep apnea on CPAP: Code(s): G47.33 - Obstructive sleep apnea (adult) (pediatric); Z99.89 - Dependence on other enabling machines and devices Status: Acute Assessment and Plan: BIPAP as tolerated (9) Hypokalemia: Code(s): E87.6 - Hypokalemia Status: Acute Assessment and Plan: Replace as needed pt is however refusing (10) Hypothyroidism: Code(s): E03.9 - Hypothyroidism, unspecified Status: Acute Assessment and Plan: TSH WNL continue home regimen (11) Anxiety: Code(s): F41.9 - Anxiety disorder, unspecified Status: Acute Assessment and Plan: Monitor (12) Suspected 2019 novel coronavirus infection: Code(s): Z20.828 - Contact with and (suspected) exposure to other viral communicable diseases Status: Ruled-out Assessment and Plan: This was found to be negative (13) Type 2 diabetes mellitus with hyperglycemia, without long-term current use of insulin: Code(s): E11.65 - Type 2 diabetes mellitus with hyperglycemia Status: Chronic Assessment and Plan: A1c 5.8 Will do Accuchecks ACHS, hypoglycemia protocol, correctional insulin, home regimen Additional Plan Subjective Date/time seen: 04/29/20 16:25 Interval history: Patient is a 84 yo F with multiple medical problems including chronic respiratory failure, COPD, Obstructive sleep apnea, congestive heart failure, paroxysmal atrial fibrillation, type 2 diabetes mellitus, and several other comorbidities for CHF excerbation. Unfortunately pt has been having SOB and has been on BIPAP prn. Pt still looks SOB at rest. Cxr still shows pulmonar
[2020-04-29] MEDS: BUMETANIDE INJ 1 MG/4 ML VIAL IV PUSH (16:45)
[2020-04-29] MEDS: metOLazone 2.5 MG TABLET PO (16:45)
[2020-04-29 17:31] LABS: Anion Gap 3 mmol/L (8-16); Blood Urea Nitrogen 15 mg/dL (7-17); Calcium 8.2 mg/dL (8.4-10.2); Carbon Dioxide 34 mmol/L (22-30); Chloride 95 mmol/L (98-107); Estimated Glomerular Filt Rate 60; Glucose 131 mg/dL (65-105); Potassium 3.5 mmol/L (3.4-5.0); Sodium 132 mmol/L (137-145)
[2020-04-29 21:59] LABS: Glucose Point of Care 147 (65-105)
[2020-04-30] VITALS (27 sets, daily range): BP systolic 107–120; BP diastolic 48–54; PULSE 80–94; RESP 22–32; TEMP 35.8–36.9; O2SAT 92–98
[2020-04-30] MEDS: AMPICILLIN 1 GM/NS 50 ML 1 GM/50 ML BAG IVPB ×6 (00:46→21:38)
[2020-04-30] MEDS: CENTRAL LINE FLUSH 10 ML IV PUSH ×4 (01:16→20:15)
[2020-04-30] MEDS: ALBUTEROL SULFATE NEB 2.5 MG/0.5 ML INH 5 MG INHALATION ×3 (01:40→21:32)
[2020-04-30] MEDS: IPRATROPIUM BR 0.02% INH SOLN 0.5 MG/2.5 ML VIAL INHALATION ×3 (01:40→21:33)
[2020-04-30] MEDS: LORazepam INJ (*CRX) 2 MG/ML VIAL 0.5 MG IV PUSH ×3 (02:20→21:53)
[2020-04-30] MEDS: LEVOTHYROXINE SODIUM 75 MCG TABLET PO (06:45)
[2020-04-30 06:51] LABS: Glucose Point of Care 106 (65-105)
[2020-04-30] MEDS: AMIODARONE HCL 200 MG TABLET PO ×2 (08:39→18:26)
[2020-04-30] MEDS: ACIDOPHILUS/BULGARICUS CHEWABLE TABLET 2 TABLET PO ×2 (08:39→18:26)
[2020-04-30] MEDS: BUMETANIDE INJ 1 MG/4 ML VIAL IV PUSH ×2 (08:40→18:26)
[2020-04-30] MEDS: METOPROLOL TARTRATE 25 MG TABLET PO ×2 (08:40→20:15)
[2020-04-30] MEDS: APIXABAN 2.5 MG TABLET PO ×2 (08:40→18:26)
[2020-04-30] MEDS: FLUTICASONE PROPIONATE 0.05% NA SPR 16 GM BTL (*BKC) 1 SPRAY NASAL ×2 (08:40→20:14)
[2020-04-30 08:54] LABS: Glucose Point of Care 84 (65-105)
[2020-04-30] MEDS: metOLazone 2.5 MG TABLET PO (09:01)
[2020-04-30] MEDS: POTASSIUM CHLORIDE 20 MEQ PACKET (FOR LIQUID) 40 MEQ PO (09:01)
--- NOTE | 2020-04-30 11:53 | PM.CNCAR ---
Assessment and Plan Additional Plan 84-year-old lady admitted with shortness of breath and clinically has been treated with aggressive diuretics for the cath suspicion of congestive heart failure with no real clinical improvement/response despite aggressive regimen of Bumex and metolazone. She is known to have normal LV systolic function and no significant left-sided valve disease on recent transthoracic and transesophageal echocardiography. She does have a large bulky tricuspid valve vegetation. She is on appropriate antibiotics for this. I believe a significant clinical concern is that she may certainly be embolizing her lungs resulting in her respiratory difficulty from this relatively large tricuspid valve vegetation. On physical exam she does not appear to be significantly volume overloaded but is in respiratory distress with audible wheezing/rhonchi. She is on appropriate antibiotics. I am going to order a dose of intravenous steroids because of the wheezing on physical exam and a CT of the chest to determine if there is evidence of emboli to the lungs in this setting. Jose F Carrasco MD [facility] History of Present Illness History of Present Illness Consult date/time: Date of service: 04/30/20 11:53 Consult reason: shortness of breath Reason For Visit: Shortness of breath. Narrative: This is an 84-year-old woman I am seeing at the request of the hospitalist today because of symptoms of dyspnea and recent diagnosis of tricuspid valve endocarditis. The patient follows with a take away attendant elsewhere Dr. Gomes . Apparently she has a history of a chronically implanted dual-chamber pacemaker and was hospitalized here in the beginning of this month with infectious illness was found to have a relatively large bulky vegetation on the tricuspid valve which appears to be enterococcal in nature based on the blood cultures. The air there was some concern on some of the echocardiographic projections that her pacemaker leads may or may not be involved with this but that was not evident. In any event antibiotics were are recommended for this she was in a skilled care facility and was to complete the course of treatment and follow up with her established take away attendant. She was hospitalized here several days ago with increasing shortness of breath. The echocardiogram and transesophageal study done couple of weeks ago did not demonstrate any left ventricular systolic dysfunction or any significant left-sided valve dysfunction. She did have her mitral valve repaired in the remote past with a ring annuloplasty. The patient was significantly short of breath felt to be in congestive heart failure she has been treated with diuretics aggressively but with minimal if any clinical improvement. She reports ongoing shortness of breath or chest x-ray is still congested in appearance and in this setting I am seeing her in consultation. The patient is sleeping in the chair when I entered the room to see her with nasal cannula oxygen in place. During the evaluation the nasal cannula oxygen came out of her nose and fell into her lap and she very quickly became more short of breath. She does have a history of chronic obstructive lung disease as well. Electrocardiogram on admission shows a combination of AV sequential pacing and at times atrial sensing with ventricular pacing. Review of Systems Constitutional: Constitutional: Reports lethargy and Reports weakness Eyes: Eyes: Reports no additional eye complaints ENT: Reports system reviewed and no additional complaints, except as documented Cardiovascular: Cardiovascular: Reports no additional cardiovascular complaints Respiratory: Respiratory: Reports dyspnea and Reports wheezing Gastrointestinal: Gastrointestinal: Reports no additional gastrointestinal complaints Musculoskeletal: Musculoskeletal: Reports no additional musculoskeletal complaints Integumentary/Breasts: Skin/Breast: Reports system reviewed and no additio
[2020-04-30 12:19] LABS: Glucose Point of Care 135 (65-105)
[2020-04-30] MEDS: methylPREDNISolone SOD SUCC 125 MG VIAL 80 MG IV PUSH (12:22)
--- NOTE | 2020-04-30 16:26 | PM.IMPN ---
Progress Note: A&P Assessment and Plan (1) CHF exacerbation: Code(s): I50.9 - Heart failure, unspecified Status: Acute Assessment and Plan: Patient able to tolerate BiPAP PRN only, ABG and CXR repeated switch to BUMEX BID and metazolone. Cardiology consult seen STAT CT chest ordered (2) Chronic respiratory failure with hypoxia, on home oxygen therapy: Code(s): J96.11 - Chronic respiratory failure with hypoxia; Z99.81 - Dependence on supplemental oxygen Status: Acute Assessment and Plan: Treat for acute CHF exacerbation with DIURESIS IV (3) Chronic obstructive pulmonary disease: Code(s): J44.9 - Chronic obstructive pulmonary disease, unspecified Status: Chronic Assessment and Plan: CHronic history of COPD Continue with scheduled nebs PRN albuterol symbicort Q12 hr STarted on IV Steroids (4) Endocarditis: Onset Date: ~04/2020 Code(s): I38 - Endocarditis, valve unspecified Status: Acute Assessment and Plan: 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 Gomes Pt had Echo here (5) Paroxysmal atrial fibrillation: Code(s): I48.0 - Paroxysmal atrial fibrillation Status: Chronic Assessment and Plan: on amiodarone and metoprolol and eliquis (6) Diastolic congestive heart failure: Code(s): I50.30 - Unspecified diastolic (congestive) heart failure Status: Chronic Assessment and Plan: Normal EF with diastolic dysfunction noted on MAYNOR/TTE (7) Essential hypertension: Code(s): I10 - Essential (primary) hypertension Status: Chronic Assessment and Plan: continue to monitor BPs (8) Obstructive sleep apnea on CPAP: Code(s): G47.33 - Obstructive sleep apnea (adult) (pediatric); Z99.89 - Dependence on other enabling machines and devices Status: Acute Assessment and Plan: BIPAP as tolerated (9) Hypokalemia: Code(s): E87.6 - Hypokalemia Status: Acute Assessment and Plan: Replace as needed pt is however refusing (10) Hypothyroidism: Code(s): E03.9 - Hypothyroidism, unspecified Status: Acute Assessment and Plan: TSH WNL continue home regimen (11) Anxiety: Code(s): F41.9 - Anxiety disorder, unspecified Status: Acute Assessment and Plan: Monitor (12) Suspected 2019 novel coronavirus infection: Code(s): Z20.828 - Contact with and (suspected) exposure to other viral communicable diseases Status: Ruled-out Assessment and Plan: This was found to be negative (13) Type 2 diabetes mellitus with hyperglycemia, without long-term current use of insulin: Code(s): E11.65 - Type 2 diabetes mellitus with hyperglycemia Status: Chronic Assessment and Plan: A1c 5.8 Will do Accuchecks ACHS, hypoglycemia protocol, correctional insulin, home regimen Additional Plan Subjective Date/time seen: 04/30/20 16:26 Interval history: Patient is a 84 yo F with multiple medical problems including chronic respiratory failure, COPD, Obstructive sleep apnea, congestive heart failure, paroxysmal atrial fibrillation, type 2 diabetes mellitus, and several other comorbidities for CHF excerbation. Unfortunately pt has been having SOB and has been on BIPAP prn. Pt
[2020-04-30 17:21] LABS: Glucose Point of Care 320 (65-105)
[2020-04-30] MEDS: methylPREDNISolone SOD SUCC 125 MG VIAL 60 MG IV PUSH (18:27)
[2020-04-30] MEDS: INSULIN HUMAN REGULAR (*BKC) 100 UNITS/ML SUB-Q (18:31)
[2020-04-30 20:33] LABS: Glucose Point of Care 254 (65-105)
[2020-05-01] VITALS (22 sets, daily range): BP systolic 105–127; BP diastolic 45–58; PULSE 70–83; RESP 16–24; TEMP 36.3–36.6; O2SAT 93–100
[2020-05-01] MEDS: AMPICILLIN 1 GM/NS 50 ML 1 GM/50 ML BAG IVPB ×6 (01:39→21:52)
[2020-05-01] MEDS: ALBUTEROL SULFATE NEB 2.5 MG/0.5 ML INH 5 MG INHALATION ×3 (02:51→21:33)
[2020-05-01] MEDS: IPRATROPIUM BR 0.02% INH SOLN 0.5 MG/2.5 ML VIAL INHALATION ×3 (02:51→21:34)
[2020-05-01 04:06] LABS: Hematocrit 29.9 % (37.0-47.0); Hemoglobin 9.5 g/dL (12.0-15.0); Mean Corpuscular HGB Conc 31.8 g/dl (32-36); Mean Corpuscular Hemoglobin 29.5 pg (26-34); Mean Corpuscular Volume 92.9 fl (80-100); Mean Platelet Volume 11.1 fl (7.4-10.4); Platelet Count Result 250 k/mm3 (150-375); Red Blood Count 3.22 M/mm3 (4.2-5.4); Red Cell Distribution Width 14.9 % (11.5-14.5); White Blood Count 4.3 K/mm3 (4.5-10.0)
[2020-05-01 04:23] LABS: Anion Gap 3.99999 mmol/L (8-16); Blood Urea Nitrogen 19 mg/dL (7-17); Calcium 8.1 mg/dL (8.4-10.2); Carbon Dioxide > 40 mmol/L (22-30); Chloride 91 mmol/L (98-107); Estimated Glomerular Filt Rate 53; Glucose 143 mg/dL (65-105); Potassium 2.4 mmol/L (3.4-5.0); Sodium 135 mmol/L (137-145)
[2020-05-01] MEDS: LORazepam INJ (*CRX) 2 MG/ML VIAL 0.5 MG IV PUSH (04:29)
[2020-05-01] MEDS: CENTRAL LINE FLUSH 10 ML IV PUSH ×3 (05:40→22:43)
[2020-05-01] MEDS: LEVOTHYROXINE SODIUM 75 MCG TABLET PO (05:40)
[2020-05-01] MEDS: INSULIN HUMAN REGULAR (*BKC) 100 UNITS/ML SUB-Q ×3 (05:55→17:26)
[2020-05-01 06:00] LABS: Glucose Point of Care 155 (65-105)
[2020-05-01 08:41] LABS: Glucose Point of Care 194 (65-105)
[2020-05-01] MEDS: methylPREDNISolone SOD SUCC 125 MG VIAL 60 MG IV PUSH ×2 (09:15→17:24)
[2020-05-01] MEDS: POTASSIUM CHLORIDE 20 MEQ PACKET (FOR LIQUID) 40 MEQ PO (09:15)
[2020-05-01] MEDS: metOLazone 2.5 MG TABLET PO (09:15)
[2020-05-01] MEDS: METOPROLOL TARTRATE 25 MG TABLET PO ×2 (09:15→22:41)
[2020-05-01] MEDS: guaiFENesin 12 HR 600 MG TABCR 1200 MG PO ×2 (09:16→17:23)
[2020-05-01] MEDS: FLUTICASONE PROPIONATE 0.05% NA SPR 16 GM BTL (*BKC) 1 SPRAY NASAL ×2 (09:16→22:41)
[2020-05-01] MEDS: BUMETANIDE INJ 1 MG/4 ML VIAL IV PUSH ×2 (09:17→17:22)
[2020-05-01] MEDS: AMIODARONE HCL 200 MG TABLET PO ×2 (09:17→17:22)
[2020-05-01] MEDS: APIXABAN 2.5 MG TABLET PO ×2 (09:17→17:25)
[2020-05-01] MEDS: ACIDOPHILUS/BULGARICUS CHEWABLE TABLET 2 TABLET PO ×2 (09:17→17:24)
[2020-05-01 11:30] LABS: Anion Gap 6 mmol/L (8-16); Blood Urea Nitrogen 19 mg/dL (7-17); Calcium 8.1 mg/dL (8.4-10.2); Carbon Dioxide 38 mmol/L (22-30); Chloride 90 mmol/L (98-107); Estimated Glomerular Filt Rate 53; Glucose 266 mg/dL (65-105); Potassium 2.8 mmol/L (3.4-5.0); Sodium 134 mmol/L (137-145)
--- NOTE | 2020-05-01 11:35 | PM.IMPN ---
Progress Note: A&P Assessment and Plan (1) CHF exacerbation: Code(s): I50.9 - Heart failure, unspecified Status: Acute Assessment and Plan: Patient able to tolerate BiPAP PRN only, pt is on BUMEX BID and metazolone. Cardiology consult seen STAT CT chest ordered (2) Chronic respiratory failure with hypoxia, on home oxygen therapy: Code(s): J96.11 - Chronic respiratory failure with hypoxia; Z99.81 - Dependence on supplemental oxygen Status: Acute Assessment and Plan: Treat for acute CHF exacerbation with DIURESIS IV (3) Chronic obstructive pulmonary disease: Code(s): J44.9 - Chronic obstructive pulmonary disease, unspecified Status: Chronic Assessment and Plan: CHronic history of COPD Continue with scheduled nebs PRN albuterol symbicort Q12 hr STarted on IV Steroids (4) Endocarditis: Onset Date: ~04/2020 Code(s): I38 - Endocarditis, valve unspecified Status: Acute Assessment and Plan: 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 Gomes Pt had Echo here (5) Paroxysmal atrial fibrillation: Code(s): I48.0 - Paroxysmal atrial fibrillation Status: Chronic Assessment and Plan: on amiodarone and metoprolol and eliquis (6) Diastolic congestive heart failure: Code(s): I50.30 - Unspecified diastolic (congestive) heart failure Status: Chronic Assessment and Plan: Normal EF with diastolic dysfunction noted on MAYNOR/TTE (7) Essential hypertension: Code(s): I10 - Essential (primary) hypertension Status: Chronic Assessment and Plan: continue to monitor BPs (8) Obstructive sleep apnea on CPAP: Code(s): G47.33 - Obstructive sleep apnea (adult) (pediatric); Z99.89 - Dependence on other enabling machines and devices Status: Acute Assessment and Plan: BIPAP as tolerated (9) Hypokalemia: Code(s): E87.6 - Hypokalemia Status: Acute Assessment and Plan: Replace as needed pt having K rider today. (10) Hypothyroidism: Code(s): E03.9 - Hypothyroidism, unspecified Status: Acute Assessment and Plan: TSH WNL continue home regimen (11) Anxiety: Code(s): F41.9 - Anxiety disorder, unspecified Status: Acute Assessment and Plan: Monitor (12) Suspected 2019 novel coronavirus infection: Code(s): Z20.828 - Contact with and (suspected) exposure to other viral communicable diseases Status: Ruled-out Assessment and Plan: This was found to be negative (13) Type 2 diabetes mellitus with hyperglycemia, without long-term current use of insulin: Code(s): E11.65 - Type 2 diabetes mellitus with hyperglycemia Status: Chronic Assessment and Plan: A1c 5.8 Will do Accuchecks ACHS, hypoglycemia protocol, correctional insulin, home regimen Additional Plan Subjective Date/time seen: 05/01/20 11:35 Interval history: Patient is a 84 yo F with multiple medical problems including chronic respiratory failure, COPD, Obstructive sleep apnea, congestive heart failure, paroxysmal atrial fibrillation, type 2 diabetes mellitus, and several other comorbidities for CHF excerbation. STAT CT chest ordered by cardiology showing pneumonia and pulmonary edema. Pt has h
--- NOTE | 2020-05-01 11:42 | PC.NURSE ---
patient received as a transfer from IMU to room 348, oriented to new room and environment, pt doing well and denies pain at this time
--- NOTE | 2020-05-01 11:44 | PC.NURSE ---
This patient, Renu Harvey, was transferred to [facility] on 05/01/20 at 1140. Personal belongings sent with patient. Belongings list checked. Report given to Kari QUINONES. Appropriate documentation sent with patient.
--- NOTE | 2020-05-01 12:22 | PM.PNCARD ---
Progress Note: A&P Additional Plan SOB is likely multifactorial and could be also volume overload, she had prominent wheezes and no evidence of pulmonary embolism, hypokalemia, negative balance yesterday, TV endocarditis plan consider diuresis after correction of hypokalemia, antibiotics for TV endocarditis per ID recommendation Subjective Date/time seen: 05/01/20 12:22 Interval history: cont to have SOB but better today No acute problems over night Review of Systems Review of Systems: All systems reviewed & are unremarkable except as noted in HPI and below Exam Const: General: no acute distress Neck: Neck: no JVD Resp: Auscultation: wheezes (diffsue both sides ) Cardio: Rate: regular rate Rhythm: regular rhythm Heart sounds: no gallops Extrem: General: edema (ankle bilateral edema ) Objective Data Vital Signs Vital Signs: Vital Signs - 24 hr 04/30/20 12:54 04/30/20 14:00 04/30/20 16:00 Temperature 36.2 C L Pulse Rate 80 91 80 Respiratory Rate 24 H Blood Pressure 107/52 L Pulse Oximetry 93 04/30/20 17:02 04/30/20 18:00 04/30/20 18:26 Temperature 35.8 C L Pulse Rate 91 94 90 Respiratory Rate 24 H Blood Pressure 113/54 L Pulse Oximetry 92 04/30/20 20:00 04/30/20 20:15 04/30/20 21:30 Temperature 36.1 C L Pulse Rate 87 87 88 Respiratory Rate 24 H 24 H Blood Pressure 113/54 L Pulse Oximetry 98 04/30/20 21:34 04/30/20 21:35 04/30/20 22:00 Temperature Pulse Rate 88 88 80 Respiratory Rate 26 H 24 H Blood Pressure Pulse Oximetry 96 04/30/20 23:13 05/01/20 00:00 05/01/20 01:29 Temperature 36.3 C L Pulse Rate 80 80 80 Respiratory Rate 22 H 22 H 21 H Blood Pressure 121/58 L Pulse Oximetry 97 97 93 05/01/20 01:59 05/01/20 02:51 05/01/20 02:52 Temperature Pulse Rate 80 80 80 Respiratory Rate 22 H 21 H Blood Pressure Pulse Oximetry 100 05/01/20 02:56 05/01/20 03:56 05/01/20 04:00 Temperature 36.6 C Pulse Rate 80 80 80 Respiratory Rate 18 22 H 22 H Blood Pressure 105/57 L Pulse Oximetry 96 96 05/01/20 06:00 05/01/20 08:00 05/01/20 09:15 Temperature 36.4 C Pulse Rate 80 80 83 Respiratory Rate 24 H Blood Pressure 127/45 L Pulse Oximetry 96 05/01/20 09:17 05/01/20 10:00 05/01/20 10:17 Temperature Pulse Rate 83 81 Respiratory Rate Blood Pressure Pulse Oximetry 95 Intake/Output Intake/Output: Intake & Output 04/28/20 04/29/20 04/30/20 05/01/20 23:59 23:59 23:59 23:59 Intake Total 416 651 2412 840 Output Total 821 997 [id number] 1675 Balance 20 -100 -755 -835 Meds/Results Medications: Active Medications Generic Name Dose Route Start Last Admin Trade Name Freq PRN Reason Stop Dose Admin Acetaminophen 650 mg 04/26/20 22:54 Tylenol Tablet PO Q4-6H PRN Pain Al Hydrox/Mg Hydrox/Simethicone 30 ml 04/26/20 22:54 Mylanta PO Q8H PRN Dyspepsia Albuterol 2 puff 04/26/20 17:19 Proventil Hfa INHALATION QIDRT PRN Shortness Of Breath Albuterol 5 mg 04/27/20 08:00 05/01/20 09:46 Albuterol Sulf Neb 2.5mg/0.5ml INHALATION Not Given Q6HRT JUAN DIEGO Amiodarone HCl 200 mg 04/26/20 17:00 05/01/20 09:17 Pacerone PO 200 mg BID JUAN DIEGO Administration Apixaban 2.5 mg 04/26/20 17:00 05/01/20 09:17 Eliquis PO 2.5 mg BID JUAN DIEGO Administration Budesonide/Formoterol Fumarate 2 puff 04/26/20 20:00 05/01/20 09:46 Symbicort 160-4.5 Mcg (*Sp) Inhaler INHALATION Not Given Q12HRT JUAN DIEGO Bumetanide 1 mg 04/29/20 17:00 05/01/20 09:17 Bumex Inj IV PUSH 1 mg BID JUAN DIEGO Administration Dextrose 12.5 gm 04/26/20 23:16 Dextrose 50% Syringe IV PUSH PRN PRN Hypoglycemia Protocol Diltiazem HCl 240 mg 04/27/20 09:00 05/01/20 09:16 Cardizem Cd PO 240 mg DAILY JUAN DIEGO Administration Fluticasone Propionate 1 spray 04/27/20 14:10 05/01/20 09:16 Flonase 0.05% Nasal Sixes NASAL 1 spray Q12HR SC
--- NOTE | 2020-05-01 13:51 | PC.NURSE ---
patient received from IMU as a transfer in to room 348, oriented pt to new room and environment, pt doing well, denies pain at this time
[2020-05-01 16:18] LABS: Glucose Point of Care 190 (65-105)
[2020-05-01 16:18] LABS: Glucose Point of Care 209 (65-105)
[2020-05-01 17:44] LABS: Glucose Point of Care 223 (65-105)
--- NOTE | 2020-05-01 18:52 | PC.NURSE ---
Dr Lisa Kirkland blood draw after potassium rider infused
[2020-05-01 19:29] LABS: NT Pro B Type Natriuretic Pept 14700 PG/ML (5-100)
[2020-05-01 22:28] LABS: Glucose Point of Care 189 (65-105)
[2020-05-02] VITALS (15 sets, daily range): BP systolic 118–129; BP diastolic 49–54; PULSE 66–88; RESP 16–23; TEMP 36.2–36.8; O2SAT 92–100
[2020-05-02] MEDS: LORazepam INJ (*CRX) 2 MG/ML VIAL 0.5 MG IV PUSH (01:04)
[2020-05-02] MEDS: AMPICILLIN 1 GM/NS 50 ML 1 GM/50 ML BAG IVPB ×6 (01:05→22:07)
[2020-05-02] MEDS: IPRATROPIUM BR 0.02% INH SOLN 0.5 MG/2.5 ML VIAL INHALATION ×4 (02:50→21:23)
[2020-05-02] MEDS: ALBUTEROL SULFATE NEB 2.5 MG/0.5 ML INH 5 MG INHALATION ×4 (02:50→21:23)
[2020-05-02 04:52] LABS: Hematocrit 27.6 % (37.0-47.0); Hemoglobin 8.9 g/dL (12.0-15.0); Mean Corpuscular HGB Conc 32.2 g/dl (32-36); Mean Corpuscular Hemoglobin 29.5 pg (26-34); Mean Corpuscular Volume 91.4 fl (80-100); Mean Platelet Volume 11.2 fl (7.4-10.4); Platelet Count Result 277 k/mm3 (150-375); Red Blood Count 3.02 M/mm3 (4.2-5.4); Red Cell Distribution Width 14.8 % (11.5-14.5); White Blood Count 9.7 K/mm3 (4.5-10.0)
[2020-05-02 05:16] LABS: Anion Gap 5.99999 mmol/L (8-16); Blood Urea Nitrogen 24 mg/dL (7-17); Calcium 7.9 mg/dL (8.4-10.2); Carbon Dioxide > 40 mmol/L (22-30); Chloride 91 mmol/L (98-107); Estimated Glomerular Filt Rate 48; Glucose 203 mg/dL (65-105); Potassium 2.7 mmol/L (3.4-5.0); Sodium 137 mmol/L (137-145)
[2020-05-02] MEDS: LEVOTHYROXINE SODIUM 75 MCG TABLET PO (05:31)
[2020-05-02] MEDS: CENTRAL LINE FLUSH 10 ML IV PUSH ×3 (05:31→22:08)
[2020-05-02] MEDS: INSULIN HUMAN REGULAR (*BKC) 100 UNITS/ML SUB-Q ×3 (06:04→17:42)
[2020-05-02 06:18] LABS: Glucose Point of Care 213 (65-105)
[2020-05-02] MEDS: ACIDOPHILUS/BULGARICUS CHEWABLE TABLET 2 TABLET PO ×2 (09:28→17:40)
[2020-05-02] MEDS: SALINE 0.65% NAS SOLN 44 ML BTL 1 SPRAY NASAL (09:29)
[2020-05-02] MEDS: metOLazone 2.5 MG TABLET PO (09:29)
[2020-05-02] MEDS: BUMETANIDE INJ 1 MG/4 ML VIAL IV PUSH ×2 (09:29→17:41)
[2020-05-02] MEDS: SODIUM CHLORIDE NASAL GEL 14.1 GM 1 APPLIC NASAL (09:29)
[2020-05-02] MEDS: guaiFENesin 12 HR 600 MG TABCR 1200 MG PO ×2 (09:30→17:41)
[2020-05-02] MEDS: APIXABAN 2.5 MG TABLET PO ×2 (09:31→17:40)
[2020-05-02] MEDS: AMIODARONE HCL 200 MG TABLET PO ×2 (09:31→17:40)
[2020-05-02] MEDS: FLUTICASONE PROPIONATE 0.05% NA SPR 16 GM BTL (*BKC) 1 SPRAY NASAL ×2 (09:33→21:13)
[2020-05-02] MEDS: methylPREDNISolone SOD SUCC 125 MG VIAL 60 MG IV PUSH ×2 (09:33→17:41)
[2020-05-02] MEDS: METOPROLOL TARTRATE 25 MG TABLET PO ×2 (09:34→21:13)
[2020-05-02] MEDS: traMADol HCL (*CRX) 50 MG TABLET PO (09:34)
[2020-05-02] MEDS: POTASSIUM CITRATE 5 MEQ TAB CR 40 MEQ PO (12:14)
[2020-05-02 12:30] LABS: Glucose Point of Care 273 (65-105)
[2020-05-02 12:31] LABS: Anion Gap 8 mmol/L (8-16); Blood Urea Nitrogen 26 mg/dL (7-17); Carbon Dioxide 38 mmol/L (22-30); Chloride 89 mmol/L (98-107); Estimated Glomerular Filt Rate 43; Glucose 293 mg/dL (65-105); Magnesium 1.7 mg/dL (1.6-2.3); Potassium 2.9 mmol/L (3.4-5.0); Sodium 135 mmol/L (137-145)
--- NOTE | 2020-05-02 14:42 | PM.IMPN ---
Progress Note: A&P Assessment and Plan (1) CHF exacerbation: Code(s): I50.9 - Heart failure, unspecified Status: Acute Assessment and Plan: Pt is on BUMEX IV BID and metazolone. Cardiology consult see (2) Chronic respiratory failure with hypoxia, on home oxygen therapy: Code(s): J96.11 - Chronic respiratory failure with hypoxia; Z99.81 - Dependence on supplemental oxygen Status: Acute Assessment and Plan: Treat for acute CHF exacerbation with DIURESIS IV and COPD exacerbation with IV steroids CTchest ordered few days ago. 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 Gomes Pt had Echo here already (5) Paroxysmal atrial fibrillation: Code(s): I48.0 - Paroxysmal atrial fibrillation Status: Chronic Assessment and Plan: on amiodarone and metoprolol and eliquis (6) Diastolic congestive heart failure: Code(s): I50.30 - Unspecified diastolic (congestive) heart failure Status: Chronic Assessment and Plan: Normal EF with diastolic dysfunction noted on MAYNOR/TTE (7) Essential hypertension: Code(s): I10 - Essential (primary) hypertension Status: Chronic Assessment and Plan: continue to monitor BPs (8) Obstructive sleep apnea on CPAP: Code(s): G47.33 - Obstructive sleep apnea (adult) (pediatric); Z99.89 - Dependence on other enabling machines and devices Status: Acute Assessment and Plan: BIPAP as tolerated (9) Hypokalemia: Code(s): E87.6 - Hypokalemia Status: Acute Assessment and Plan: Replace as needed pt having K rider today. continue to monitor BMP (10) Hypothyroidism: Code(s): E03.9 - Hypothyroidism, unspecified Status: Acute Assessment and Plan: TSH WNL continue home regimen (11) Anxiety: Code(s): F41.9 - Anxiety disorder, unspecified Status: Acute Assessment and Plan: Monitor (12) Suspected 2019 novel coronavirus infection: Code(s): Z20.828 - Contact with and (suspected) exposure to other viral communicable diseases Status: Ruled-out Assessment and Plan: This was found to be negative (13) Type 2 diabetes mellitus with hyperglycemia, without long-term current use of insulin: Code(s): E11.65 - Type 2 diabetes mellitus with hyperglycemia Status: Chronic Assessment and Plan: A1c 5.8 Will do Accuchecks ACHS, hypoglycemia protocol, correctional insulin, home regimen Additional Plan Subjective Date/time seen: 05/02/20 14:42 Interval history: Patient is a 84 yo F with multiple medical problems including chronic respiratory failure, COPD, Obstructive sleep apnea, congestive heart failure, paroxysmal atrial fibrillation, type 2 diabetes mellitus, and several other comorbidities f
[2020-05-02 17:18] LABS: Glucose Point of Care 300 (65-105)
[2020-05-02] MEDS: SENNOSIDES 8.6 MG TABLET 17.2 MG PO (21:21)
[2020-05-02 21:45] LABS: Glucose Point of Care 252 (65-105)
[2020-05-03] VITALS (16 sets, daily range): BP systolic 108–137; BP diastolic 46–53; PULSE 70–84; RESP 16–22; TEMP 36.1–36.5; O2SAT 92–100
[2020-05-03] MEDS: AMPICILLIN 1 GM/NS 50 ML 1 GM/50 ML BAG IVPB ×6 (01:46→20:37)
[2020-05-03] MEDS: IPRATROPIUM BR 0.02% INH SOLN 0.5 MG/2.5 ML VIAL INHALATION ×4 (03:03→20:05)
[2020-05-03] MEDS: ALBUTEROL SULFATE NEB 2.5 MG/0.5 ML INH 5 MG INHALATION ×4 (03:03→20:05)
[2020-05-03] MEDS: CENTRAL LINE FLUSH 20 ML IV PUSH ×2 (05:42→13:15)
[2020-05-03] MEDS: CENTRAL LINE FLUSH 10 ML IV PUSH ×3 (05:42→22:00)
[2020-05-03] MEDS: INSULIN HUMAN REGULAR (*BKC) 100 UNITS/ML SUB-Q ×3 (05:58→17:20)
[2020-05-03 06:03] LABS: Glucose Point of Care 195 (65-105)
[2020-05-03 06:09] LABS: Hematocrit 27.6 % (37.0-47.0); Hemoglobin 8.8 g/dL (12.0-15.0); Mean Corpuscular HGB Conc 31.9 g/dl (32-36); Mean Corpuscular Hemoglobin 29.1 pg (26-34); Mean Corpuscular Volume 91.4 fl (80-100); Mean Platelet Volume 11.3 fl (7.4-10.4); Platelet Count Result 267 k/mm3 (150-375); Red Blood Count 3.02 M/mm3 (4.2-5.4); Red Cell Distribution Width 14.8 % (11.5-14.5); White Blood Count 8.2 K/mm3 (4.5-10.0)
[2020-05-03 06:34] LABS: Anion Gap 6.99999 mmol/L (8-16); Blood Urea Nitrogen 29 mg/dL (7-17); Carbon Dioxide > 40 mmol/L (22-30); Chloride 89 mmol/L (98-107); Estimated Glomerular Filt Rate 36; Glucose 186 mg/dL (65-105); Potassium 2.5 mmol/L (3.4-5.0); Sodium 136 mmol/L (137-145)
[2020-05-03] MEDS: LEVOTHYROXINE SODIUM 75 MCG TABLET PO (06:42)
[2020-05-03 08:00] LABS: Glucose Point of Care 191 (65-105)
[2020-05-03] MEDS: ACIDOPHILUS/BULGARICUS CHEWABLE TABLET 2 TABLET PO ×2 (08:29→18:12)
[2020-05-03] MEDS: BUMETANIDE INJ 1 MG/4 ML VIAL IV PUSH ×2 (08:29→18:13)
[2020-05-03] MEDS: APIXABAN 2.5 MG TABLET PO ×2 (08:29→18:13)
[2020-05-03] MEDS: POTASSIUM CITRATE 5 MEQ TAB CR 40 MEQ PO ×2 (08:30→18:15)
[2020-05-03] MEDS: guaiFENesin 12 HR 600 MG TABCR 1200 MG PO ×2 (08:31→18:13)
[2020-05-03] MEDS: metOLazone 2.5 MG TABLET PO (08:31)
[2020-05-03] MEDS: AMIODARONE HCL 200 MG TABLET PO ×2 (08:32→18:12)
[2020-05-03] MEDS: methylPREDNISolone SOD SUCC 125 MG VIAL 60 MG IV PUSH ×2 (08:33→18:14)
[2020-05-03] MEDS: METOPROLOL TARTRATE 25 MG TABLET PO ×2 (08:33→20:37)
[2020-05-03] MEDS: FLUTICASONE PROPIONATE 0.05% NA SPR 16 GM BTL (*BKC) 1 SPRAY NASAL ×2 (08:34→20:38)
[2020-05-03 11:35] LABS: Glucose Point of Care > 500 (65-105)
[2020-05-03 11:35] LABS: Glucose Point of Care 362 (65-105)
[2020-05-03 11:45] LABS: Glucose Point of Care 368 (65-105)
--- NOTE | 2020-05-03 11:45 | P.PNIM_ITS ---
Progress Note: A&P Assessment and Plan (1) Chronic respiratory failure with hypoxia, on home oxygen therapy: Code(s): J96.11 - Chronic respiratory failure with hypoxia; Z99.81 - Dependence on supplemental oxygen Status: Acute Assessment and Plan: Likely secondary to CHF exacerbation and COPD. Maintaining adequate oxygenation on 4L. CXR performed today shows rather extensive acute airspace disease with mild interval progression. Patient appears clinically improved. * Continue IV diuresis * Continue IV steroids * Supplemental O2 to maintain O2 sat >90% * Continue symbicort, albuterol, atrovent (2) CHF exacerbation: Code(s): I50.9 - Heart failure, unspecified Status: Acute Assessment and Plan: Echo performed 04/12/20 shows EF 60-65% with abnormal diastolic function. She is edematous on exam. * Cardiology is following and recommendations are appreciated * Continue Bumex * Stop metolazone per cardiology recommendations * Continue fluid restriction. Monitor I&O closely (3) Chronic obstructive pulmonary disease: Code(s): J44.9 - Chronic obstructive pulmonary disease, unspecified Status: Chronic Assessment and Plan: Chronic history of COPD. See above. * Continue with scheduled nebs and symbicort * Will attempt to wean steroids given improvement. Transition from 60 mg IV solumedrol to 60 mg PO prednisone daily. Monitor closely. * Supplemental O2 as above. 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 this is to continue through 05/22 * Continue Rocephin and Ampicillin per ID recommendations through 05/22/20. * Will need follow up with her established corporate aircraft mechanic, is Dr. Gomes (5) Hypokalemia: Code(s): E87.6 - Hypokalemia Status: Acute Assessment and Plan: Patient has had significant hypokalemia with lowest at 2.4. Suspect this is due to diuretic therapy. Potassium was low today at 2.5. She received 40 mEq IV potassium potassium improved to 3.1 on repeat. * Administer 40 mEq p.o. potassium * Monitor potassium closely and replace as needed * Metolazone has been discontinued. (6) Type 2 diabetes mellitus with hyperglycemia, without long-term current use of insulin: Code(s): E11.65 - Type 2 diabetes mellitus with hyperglycemia Status: Chronic Assessment and Plan: A1c 5.8. She was hyperglycemic this morning with blood sugar at 368. Review of prior glucose readings have also been quite elevated with several in the 250-300 range. BMP reviewed with no evidence of metabolic acidosis or anion gap. * Continue Accuchecks ACHS, hypoglycemia protocol, correctional insulin home regimen * Begin diabetic carb consistent diet * Will add 15 units Lantus qHS * Check beta-hydroxybutyrate (7) Paroxysmal atrial fibrillation: Code(s): I48.0 - Paroxysmal atrial fibrillation Status: Chronic Assessment and Plan: Rate is controlled. * Continue amiodarone, Cardizem, metoprolol, and eliquis (8) Essential hypertension: Code(s): I10 - Essential (primary) hypertension Status: Chronic Assessment and Plan: Blood pressures reviewed and remain low-normal in the 110-130 systolic. * Continue Cardizem and metoprolol * Monitor blood pressure daily (9) Obstru
--- NOTE | 2020-05-03 11:45 | PM.IMPN ---
Progress Note: A&P Assessment and Plan (1) Chronic respiratory failure with hypoxia, on home oxygen therapy: Code(s): J96.11 - Chronic respiratory failure with hypoxia; Z99.81 - Dependence on supplemental oxygen Status: Acute Assessment and Plan: Likely secondary to CHF exacerbation and COPD. Maintaining adequate oxygenation on 4L. CXR performed today shows rather extensive acute airspace disease with mild interval progression. Patient appears clinically improved. Continue IV diuresis Continue IV steroids Supplemental O2 to maintain O2 sat >90% Continue symbicort, albuterol, atrovent (2) CHF exacerbation: Code(s): I50.9 - Heart failure, unspecified Status: Acute Assessment and Plan: Echo performed 04/12/20 shows EF 60-65% with abnormal diastolic function. She is edematous on exam. Cardiology is following and recommendations are appreciated Continue Bumex Stop metolazone per cardiology recommendations Continue fluid restriction. Monitor I&O closely (3) Chronic obstructive pulmonary disease: Code(s): J44.9 - Chronic obstructive pulmonary disease, unspecified Status: Chronic Assessment and Plan: Chronic history of COPD. See above. Continue with scheduled nebs and symbicort Will attempt to wean steroids given improvement. Transition from 60 mg IV solumedrol to 60 mg PO prednisone daily. Monitor closely. Supplemental O2 as above. 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 this is to continue through 05/22 Continue Rocephin and Ampicillin per ID recommendations through 05/22/20. Will need follow up with her established chief librarian branch, is Dr. Gomes (5) Hypokalemia: Code(s): E87.6 - Hypokalemia Status: Acute Assessment and Plan: Patient has had significant hypokalemia with lowest at 2.4. Suspect this is due to diuretic therapy. Potassium was low today at 2.5. She received 40 mEq IV potassium potassium improved to 3.1 on repeat. Administer 40 mEq p.o. potassium Monitor potassium closely and replace as needed Metolazone has been discontinued. (6) Type 2 diabetes mellitus with hyperglycemia, without long-term current use of insulin: Code(s): E11.65 - Type 2 diabetes mellitus with hyperglycemia Status: Chronic Assessment and Plan: A1c 5.8. She was hyperglycemic this morning with blood sugar at 368. Review of prior glucose readings have also been quite elevated with several in the 250-300 range. BMP reviewed with no evidence of metabolic acidosis or anion gap. Continue Accuchecks ACHS, hypoglycemia protocol, correctional insulin home regimen Begin diabetic carb consistent diet Will add 15 units Lantus qHS Check beta-hydroxybutyrate (7) Paroxysmal atrial fibrillation: Code(s): I48.0 - Paroxysmal atrial fibrillation Status: Chronic Assessment and Plan: Rate is controlled. Continue amiodarone, Cardizem, metoprolol, and eliquis (8) Essential hypertension: Code(s): I10 - Essential (primary) hypertension Status: Chronic Assessment and Plan: Blood pressures reviewed and remain low-normal in the 110-130 systolic. Continue Cardizem and metoprolol Monitor blood pressure daily (9) Obstructive sleep apnea on CPAP: Code(s): G47.33 - Obstructive sleep apnea (adult) (pediatric); Z99.89 - Dependence on other enabling machines and devices Status: Acute Assessment and Plan: Likely contributing to her overall chronic respiratory failure Continue BiPAP at night (10) Anxiety: Code(s): F41.9 - Anxiety disorder, unspecified Status: Acute Assessment and Plan: Mood is stable at this time. Continu
[2020-05-03 13:32] LABS: Potassium 3.1 mmol/L (3.4-5.0)
[2020-05-03 13:40] LABS: Beta-Hydroxybutyrate/Acetoacetate 0.05 mmol/L (0.02-0.27)
--- NOTE | 2020-05-03 15:51 | PM.PNCARD ---
Progress Note: A&P Assessment and Plan (1) Endocarditis: Onset Date: ~04/2020 Code(s): I38 - Endocarditis, valve unspecified Status: Acute Assessment and Plan: Tricuspid valve vegetation on MAYNOR 04/14/2020. On appropriate antibiotics. Management per hospitalist service (2) Chronic respiratory failure with hypoxia, on home oxygen therapy: Code(s): J96.11 - Chronic respiratory failure with hypoxia; Z99.81 - Dependence on supplemental oxygen Status: Acute Assessment and Plan: Management per hospitalist service. Currently on 5 L of oxygen per nasal cannula. (3) Diastolic congestive heart failure: Code(s): I50.30 - Unspecified diastolic (congestive) heart failure Status: Chronic Assessment and Plan: Normal left ventricular systolic function EF 60-65% on echocardiogram 04/12/2020. Diastolic function is abnormal. Right ventricular chamber dimension is severely enlarged. Right ventricular systolic function is reduced. Attempting to diurese aggressively with 1 mg Bumex b.i.d. and metolazone 2.5 mg daily. This has resulted in severe hypokalemia with very little negative balance. Stop metolazone. Continue Bumex 1 mg b.i.d.. Continue fluid restriction. (4) Paroxysmal atrial fibrillation: Code(s): I48.0 - Paroxysmal atrial fibrillation Status: Chronic Assessment and Plan: Anticoagulated with apixaban. (5) Hypokalemia: Code(s): E87.6 - Hypokalemia Status: Acute Assessment and Plan: Potassium 2.5 this morning. Received 40 mEq IV and 40 mEq of potassium citrate p.o.. Repeat potassium this afternoon 3.1. Will give her another 40 mEq potassium chloride IV. She has a PICC line so can use the bar concentrated dose. Increase potassium citrate to b.i.d.. Monitor potassium closely. Check magnesium in the morning as well. Additional Plan Plan discussed with Dr Barth [id number] 05/03/2020 Subjective Date/time seen: 05/03/20 15:51 Interval history: Follow-up for:Endocarditis, shortness of breath: CHF versus COPD, hypokalemia. Date of service: 05/03/2020 Subjective: Denied chest discomfort. Having difficulty getting secretions up. Short of breath with any movement. Review of Systems Review of Systems: All systems reviewed & are unremarkable except as noted in HPI and below Constitutional: Constitutional: Reports weakness Eyes: Eyes: Reports blurry vision ENT: Denies dizziness and Reports hearing loss Cardiovascular: Cardiovascular: Reports dyspnea and Reports dyspnea on exertion Respiratory: Respiratory: Reports dyspnea, Reports dyspnea on exertion and Reports wheezing Gastrointestinal: Gastrointestinal: Denies abdominal pain, Denies nausea and Denies vomiting Musculoskeletal: Musculoskeletal: Denies back pain and Reports arthralgias ( Right hip) Integumentary/Breasts: Skin/Breast: Reports dry skin Neurologic: Reports weakness Psychiatric: Psychiatric: Reports anxiety Endocrine: Endocrine: Denies flushing Hematologic/Lymphatic: Hematologic/Lymphatic: Denies easy bleeding Allergic/Immunologic: Allergic/Immunologic: Reports wheezing Exam Const: General: no acute distress Other: Elderly overweight lady laying in bed. Breathing comfortable at this time on nasal cannula oxygen at 5 L. HENMT: Head: normal to inspection, normocephalic and atraumatic General nose exam: Normal nares present and no epistaxis Mouth: Yes dry mucous membranes Eyes: Sclera: sclerae normal Pupils: Equal, round and reactive pupils present Neck: Neck: supple and no JVD Other: Carotid pulses are intact and normal in character bilaterally Resp: Auscultation: wheezes (diffsue both sides ) Other: no inspiratory or expiratory rales. Wheezing noted throughout but more prominent in the upper ai
[2020-05-03 16:27] LABS: Glucose Point of Care 348 (65-105)
[2020-05-03] MEDS: SENNOSIDES 8.6 MG TABLET 17.2 MG PO (20:36)
[2020-05-03] MEDS: POTASSIUM CHLORIDE 20 MEQ TABLET 40 MEQ PO (20:37)
[2020-05-03] MEDS: INSULIN GLARGINE (*BKC) 100 UNITS/ML 15 UNITS SUB-Q (20:38)
[2020-05-03] MEDS: SODIUM CHLORIDE NASAL GEL 14.1 GM 1 APPLIC NASAL (20:38)
[2020-05-03] MEDS: traMADol HCL (*CRX) 50 MG TABLET PO (20:44)
[2020-05-03 21:00] LABS: Glucose Point of Care 269 (65-105)
[2020-05-04] VITALS (15 sets, daily range): BP systolic 109–136; BP diastolic 51–52; PULSE 80–87; RESP 14–20; TEMP 35.8–36.8; O2SAT 93–97
[2020-05-04] MEDS: AMPICILLIN 1 GM/NS 50 ML 1 GM/50 ML BAG IVPB ×6 (01:38→21:54)
[2020-05-04] MEDS: IPRATROPIUM BR 0.02% INH SOLN 0.5 MG/2.5 ML VIAL INHALATION ×4 (02:53→20:57)
[2020-05-04] MEDS: ALBUTEROL SULFATE NEB 2.5 MG/0.5 ML INH 5 MG INHALATION ×4 (02:53→20:57)
[2020-05-04] MEDS: CENTRAL LINE FLUSH 20 ML IV PUSH (05:42)
[2020-05-04] MEDS: CENTRAL LINE FLUSH 10 ML IV PUSH ×3 (05:42→21:56)
[2020-05-04] MEDS: LEVOTHYROXINE SODIUM 75 MCG TABLET PO (05:44)
[2020-05-04] MEDS: INSULIN HUMAN REGULAR (*BKC) 100 UNITS/ML SUB-Q ×3 (05:53→17:49)
[2020-05-04 05:54] LABS: Hematocrit 27.6 % (37.0-47.0); Hemoglobin 8.9 g/dL (12.0-15.0); Mean Corpuscular HGB Conc 32.2 g/dl (32-36); Mean Corpuscular Hemoglobin 29.6 pg (26-34); Mean Corpuscular Volume 91.7 fl (80-100); Mean Platelet Volume 11.2 fl (7.4-10.4); Platelet Count Result 267 k/mm3 (150-375); Red Blood Count 3.01 M/mm3 (4.2-5.4); Red Cell Distribution Width 14.8 % (11.5-14.5); White Blood Count 9.1 K/mm3 (4.5-10.0)
[2020-05-04 05:58] LABS: Glucose Point of Care 280 (65-105)
[2020-05-04 06:06] LABS: Anion Gap 8.99999 mmol/L (8-16); Blood Urea Nitrogen 36 mg/dL (7-17); Carbon Dioxide > 40 mmol/L (22-30); Chloride 86 mmol/L (98-107); Estimated Glomerular Filt Rate 36; Glucose 253 mg/dL (65-105); Potassium 3.1 mmol/L (3.4-5.0); Sodium 135 mmol/L (137-145)
[2020-05-04 08:20] LABS: Glucose Point of Care 245 (65-105)
[2020-05-04] MEDS: ACIDOPHILUS/BULGARICUS CHEWABLE TABLET 2 TABLET PO ×2 (09:29→17:51)
[2020-05-04] MEDS: APIXABAN 2.5 MG TABLET PO ×2 (09:30→17:52)
[2020-05-04] MEDS: FLUTICASONE PROPIONATE 0.05% NA SPR 16 GM BTL (*BKC) 1 SPRAY NASAL ×2 (09:30→21:55)
[2020-05-04] MEDS: guaiFENesin 12 HR 600 MG TABCR 1200 MG PO ×2 (09:30→17:51)
[2020-05-04] MEDS: POTASSIUM CITRATE 5 MEQ TAB CR 40 MEQ PO ×2 (09:31→17:52)
[2020-05-04] MEDS: METOPROLOL TARTRATE 25 MG TABLET PO ×2 (10:03→21:55)
[2020-05-04] MEDS: AMIODARONE HCL 200 MG TABLET PO ×2 (10:03→17:52)
[2020-05-04] MEDS: BUMETANIDE INJ 1 MG/4 ML VIAL IV PUSH ×2 (10:03→17:51)
[2020-05-04] MEDS: predniSONE 20 MG TABLET 60 MG PO (10:06)
--- NOTE | 2020-05-04 10:56 | PCDIET ---
Weekly nutritional screen. Patient is tolerating current diet, FR, 2gmNA, DBCC, which is appropriate, with adequate intake (73% average). No weight loss reported. Pt does c/o of no BM. RN states she had a BM yesterday. Pt states she uses mineral oil and lactulose at home. RN informed if needed. Pt denies trouble chewing, swallowing. We will continue to to monitor for adequate PO intake every seven days.
--- NOTE | 2020-05-04 11:41 | P.PNIM_ITS ---
Progress Note: A&P Assessment and Plan (1) Chronic respiratory failure with hypoxia, on home oxygen therapy: Code(s): J96.11 - Chronic respiratory failure with hypoxia; Z99.81 - Dependence on supplemental oxygen Status: Acute Assessment and Plan: Likely secondary to CHF exacerbation and COPD. Previously on BiPAP and now weaned down to 4L per NC. She is typically on 3L at home. CXR performed 05/03/20 shows rather extensive acute airspace disease with mild interval progression. Patient appears clinically improved. * Continue IV diuresis * Transition to PO steroids * Supplemental O2 to maintain O2 sat >90% * Continue symbicort, albuterol, atrovent (2) CHF exacerbation: Code(s): I50.9 - Heart failure, unspecified Status: Acute Assessment and Plan: Echo performed 04/12/20 shows LV EF 60-65% with abnormal diastolic function and reduced RV systolic function. She is edematous on exam. She has 1L negative fluid balance. * Cardiology is following and recommendations are appreciated * Continue Bumex * Metolazone discontinued 05/03 per cardiology recommendations secondary to hypokalemia * Continue fluid restriction. Monitor I&O closely (3) Chronic obstructive pulmonary disease: Code(s): J44.9 - Chronic obstructive pulmonary disease, unspecified Status: Chronic Assessment and Plan: Chronic history of COPD. See above. * Continue with scheduled nebs and symbicort * Weaned to 60 mg PO Prednisone today. IV solumedrol discontinued. Monitor closely. * Supplemental O2 as above. 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 This is to continue through 05/22 * Continue Rocephin and Ampicillin per ID recommendations through 05/22/20. * Will need follow up with her established cattle broker, is Dr. Gomes (5) Hypokalemia: Code(s): E87.6 - Hypokalemia Status: Acute Assessment and Plan: Patient has had significant hypokalemia with lowest at 2.4. Suspect this is due to diuretic therapy. * She received 40 mEq PO KCl and 40 mEq IV KCl this morning. * Repeat potassium and magnesium this afternoon. Additional potassium replacement as needed. * Monitor potassium closely and replace as needed * Metolazone has been discontinued. (6) Type 2 diabetes mellitus with hyperglycemia, without long-term current use of insulin: Code(s): E11.65 - Type 2 diabetes mellitus with hyperglycemia Status: Chronic Assessment and Plan: A1c 5.8. Blood sugars reviewed and are elevated in the 250-350 range. Yesterday she had two readings in the 360s. No evidence of metabolic acidosis. Anion gap is normal. Beta-hydroxybutyrate is wnl. Do not suspect DKA. Significant elevation probably secondary to steroids as A1c is not reflective of uncontrolled blood sugars. * Continue Accuchecks ACHS, hypoglycemia protocol, correctional insulin home regimen * Continue diabetic carb consistent diet * Continue 15 units Lantus qHS. Initiated on 05/03 for better control. * Anticipate continued improvement as steroids are weaned (7) Paroxysmal atrial fibrillation: Code(s): I48.0 - Paroxysmal atrial fibrillation Status: Chronic Assessment and Plan: Rate is controlled. * Continue amiodarone, Cardizem, metoprolol, and eliquis (8) Essential hype
--- NOTE | 2020-05-04 11:41 | PM.IMPN ---
Progress Note: A&P Assessment and Plan (1) Chronic respiratory failure with hypoxia, on home oxygen therapy: Code(s): J96.11 - Chronic respiratory failure with hypoxia; Z99.81 - Dependence on supplemental oxygen Status: Acute Assessment and Plan: Likely secondary to CHF exacerbation and COPD. Previously on BiPAP and now weaned down to 4L per NC. She is typically on 3L at home. CXR performed 05/03/20 shows rather extensive acute airspace disease with mild interval progression. Patient appears clinically improved. Continue IV diuresis Transition to PO steroids Supplemental O2 to maintain O2 sat >90% Continue symbicort, albuterol, atrovent (2) CHF exacerbation: Code(s): I50.9 - Heart failure, unspecified Status: Acute Assessment and Plan: Echo performed 04/12/20 shows LV EF 60-65% with abnormal diastolic function and reduced RV systolic function. She is edematous on exam. She has 1L negative fluid balance. Cardiology is following and recommendations are appreciated Continue Bumex Metolazone discontinued 05/03 per cardiology recommendations secondary to hypokalemia Continue fluid restriction. Monitor I&O closely (3) Chronic obstructive pulmonary disease: Code(s): J44.9 - Chronic obstructive pulmonary disease, unspecified Status: Chronic Assessment and Plan: Chronic history of COPD. See above. Continue with scheduled nebs and symbicort Weaned to 60 mg PO Prednisone today. IV solumedrol discontinued. Monitor closely. Supplemental O2 as above. 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 This is to continue through 05/22 Continue Rocephin and Ampicillin per ID recommendations through 05/22/20. Will need follow up with her established softball winder, is Dr. Gomes (5) Hypokalemia: Code(s): E87.6 - Hypokalemia Status: Acute Assessment and Plan: Patient has had significant hypokalemia with lowest at 2.4. Suspect this is due to diuretic therapy. She received 40 mEq PO KCl and 40 mEq IV KCl this morning. Repeat potassium and magnesium this afternoon. Additional potassium replacement as needed. Monitor potassium closely and replace as needed Metolazone has been discontinued. (6) Type 2 diabetes mellitus with hyperglycemia, without long-term current use of insulin: Code(s): E11.65 - Type 2 diabetes mellitus with hyperglycemia Status: Chronic Assessment and Plan: A1c 5.8. Blood sugars reviewed and are elevated in the 250-350 range. Yesterday she had two readings in the 360s. No evidence of metabolic acidosis. Anion gap is normal. Beta-hydroxybutyrate is wnl. Do not suspect DKA. Significant elevation probably secondary to steroids as A1c is not reflective of uncontrolled blood sugars. Continue Accuchecks ACHS, hypoglycemia protocol, correctional insulin home regimen Continue diabetic carb consistent diet Continue 15 units Lantus qHS. Initiated on 05/03 for better control. Anticipate continued improvement as steroids are weaned (7) Paroxysmal atrial fibrillation: Code(s): I48.0 - Paroxysmal atrial fibrillation Status: Chronic Assessment and Plan: Rate is controlled. Continue amiodarone, Cardizem, metoprolol, and eliquis (8) Essential hypertension: Code(s): I10 - Essential (primary) hypertension Status: Chronic Assessment and Plan: Blood pressures reviewed and remain low-normal in the 110-130 systolic. Continue Cardizem and metoprolol Monitor blood pressure daily (9) Obstructive sleep apnea on CPAP: Code(s): G47.33 - Obstructive sleep apnea (adult) (pediatric); Z99.89 - Dependence on other enabling machines and devices Statu
[2020-05-04 11:45] LABS: Glucose Point of Care 274 (65-105)
--- NOTE | 2020-05-04 11:58 | PM.PNCARD ---
Progress Note: A&P Assessment and Plan (1) Endocarditis: Onset Date: ~04/2020 Code(s): I38 - Endocarditis, valve unspecified Status: Acute Assessment and Plan: Tricuspid valve vegetation on MAYNOR 04/14/2020. On appropriate antibiotics. Management per hospitalist service (2) Chronic respiratory failure with hypoxia, on home oxygen therapy: Code(s): J96.11 - Chronic respiratory failure with hypoxia; Z99.81 - Dependence on supplemental oxygen Status: Acute Assessment and Plan: Management per hospitalist service. Down to 4 L of oxygen per nasal cannula. (3) Diastolic congestive heart failure: Code(s): I50.30 - Unspecified diastolic (congestive) heart failure Status: Chronic Assessment and Plan: Normal left ventricular systolic function EF 60-65% on echocardiogram 04/12/2020. Diastolic function is abnormal. Right ventricular chamber dimension is severely enlarged. Right ventricular systolic function is reduced. Lung some better today. Continue 1 mg Bumex b.i.d. for today. Metolazone was stopped 05/03/2020 due to significant hypokalemia. Finally has a 1300 cc negative balance. Transition to p.o. Bumex tomorrow. (4) Paroxysmal atrial fibrillation: Code(s): I48.0 - Paroxysmal atrial fibrillation Status: Chronic Assessment and Plan: Anticoagulated with apixaban. (5) Hypokalemia: Code(s): E87.6 - Hypokalemia Status: Acute Assessment and Plan: Potassium was supplemented yesterday. Potassium this morning again is 3.1. Supplement with 40 mEq in the central line concentration through her PICC line. She is receiving 40 mEq of potassium citrate b.i.d.. Recheck potassium and magnesium this afternoon approximately 3:00 p.m.. Will determine additional supplementation at that time. Additional Plan PT/OT Plan discussed with Dr Barth [id number] 05/04/2020 Subjective Date/time seen: 05/04/20 11:58 Interval history: Follow-up for:Endocarditis, shortness of breath: CHF versus COPD, hypokalemia. Date of service: 05/04/2020 Subjective: Denied chest discomfort. Shortness of breath improving. Able to get up some secretions. Review of Systems Review of Systems: All systems reviewed & are unremarkable except as noted in HPI and below Constitutional: Constitutional: Reports fatigue and Reports weakness Eyes: Eyes: Denies blurry vision ENT: Denies dizziness and Reports hearing loss Cardiovascular: Cardiovascular: Reports dyspnea (Improved) and Reports dyspnea on exertion ( improved) Respiratory: Respiratory: Reports dyspnea ( improved), Reports dyspnea on exertion ( improved) and Denies wheezing Gastrointestinal: Gastrointestinal: Denies abdominal pain, Denies nausea and Denies vomiting Musculoskeletal: Musculoskeletal: Denies back pain and Reports arthralgias ( Right hip) Integumentary/Breasts: Skin/Breast: Reports dry skin Neurologic: Denies dizziness and Reports weakness Psychiatric: Psychiatric: Reports anxiety Endocrine: Endocrine: Denies flushing Hematologic/Lymphatic: Hematologic/Lymphatic: Denies easy bleeding Allergic/Immunologic: Allergic/Immunologic: Denies lip swelling, Denies throat swelling and Denies wheezing Exam Const: General: no acute distress Other: Elderly overweight lady sitting up in chair eating lunch. Tearful at times. Breathing comfortable at this time on nasal cannula oxygen at 4 L. HENMT: Head: normal to inspection, normocephalic and atraumatic General nose exam: Normal nares present and no epistaxis Mouth: Yes dry mucous membranes Eyes: Sclera: sclerae normal Pupils: Equal, round and reactive pupils present Neck: Neck: supple Resp: Other: No wheezing today. Inspiratory rhonchi left greater than right. Cardio: Rate: regu
[2020-05-04 15:17] LABS: Magnesium 1.7 mg/dL (1.6-2.3); Potassium 3.5 mmol/L (3.4-5.0)
[2020-05-04 17:05] LABS: Glucose Point of Care 257 (65-105)
[2020-05-04] MEDS: MAGNESIUM SULF 2 GM/WATER 50ML 2 GM/50 ML BAG IVPB (17:49)
[2020-05-04] MEDS: SODIUM CHLORIDE NASAL GEL 14.1 GM 1 APPLIC NASAL (21:55)
[2020-05-04] MEDS: INSULIN GLARGINE (*BKC) 100 UNITS/ML 15 UNITS SUB-Q (21:56)
[2020-05-04 22:58] LABS: Glucose Point of Care 300 (65-105)
[2020-05-05] VITALS (16 sets, daily range): BP systolic 119–130; BP diastolic 42–50; PULSE 80–95; RESP 16–22; TEMP 36.1–36.6; O2SAT 93–98
[2020-05-05] MEDS: AMPICILLIN 1 GM/NS 50 ML 1 GM/50 ML BAG IVPB ×6 (02:02→20:44)
[2020-05-05] MEDS: ALBUTEROL SULFATE NEB 2.5 MG/0.5 ML INH 5 MG INHALATION ×4 (02:10→21:31)
[2020-05-05] MEDS: IPRATROPIUM BR 0.02% INH SOLN 0.5 MG/2.5 ML VIAL INHALATION ×4 (02:11→21:31)
[2020-05-05] MEDS: CENTRAL LINE FLUSH 20 ML IV PUSH (05:26)
[2020-05-05] MEDS: CENTRAL LINE FLUSH 10 ML IV PUSH ×3 (05:26→20:45)
[2020-05-05] MEDS: LEVOTHYROXINE SODIUM 75 MCG TABLET PO (05:27)
[2020-05-05] MEDS: INSULIN HUMAN REGULAR (*BKC) 100 UNITS/ML SUB-Q ×3 (05:29→16:57)
[2020-05-05 05:39] LABS: Glucose Point of Care 229 (65-105)
[2020-05-05 06:12] LABS: Anion Gap 14.99999 mmol/L (8-16); Blood Urea Nitrogen 40 mg/dL (7-17); Calcium 8.3 mg/dL (8.4-10.2); Carbon Dioxide > 40 mmol/L (22-30); Chloride 83 mmol/L (98-107); Estimated Glomerular Filt Rate 39; Glucose 188 mg/dL (65-105); Magnesium 2.3 mg/dL (1.6-2.3); Potassium 2.9 mmol/L (3.4-5.0); Sodium 138 mmol/L (137-145)
[2020-05-05 06:14] LABS: Hematocrit 27.1 % (37.0-47.0); Hemoglobin 8.6 g/dL (12.0-15.0); Mean Corpuscular HGB Conc 31.7 g/dl (32-36); Mean Corpuscular Hemoglobin 29.3 pg (26-34); Mean Corpuscular Volume 92.2 fl (80-100); Mean Platelet Volume 11.7 fl (7.4-10.4); Platelet Count Result 267 k/mm3 (150-375); Red Blood Count 2.94 M/mm3 (4.2-5.4); Red Cell Distribution Width 14.8 % (11.5-14.5); White Blood Count 11.2 K/mm3 (4.5-10.0)
[2020-05-05 07:54] LABS: Glucose Point of Care 153 (65-105)
[2020-05-05] MEDS: FLUTICASONE PROPIONATE 0.05% NA SPR 16 GM BTL (*BKC) 1 SPRAY NASAL ×2 (09:21→20:42)
[2020-05-05] MEDS: POTASSIUM CITRATE 5 MEQ TAB CR 40 MEQ PO ×3 (09:21→20:44)
[2020-05-05] MEDS: ACIDOPHILUS/BULGARICUS CHEWABLE TABLET 2 TABLET PO ×2 (09:22→16:45)
[2020-05-05] MEDS: predniSONE 20 MG TABLET 60 MG PO (09:22)
[2020-05-05] MEDS: BUMETANIDE 1 MG TABLET PO ×2 (09:23→16:45)
[2020-05-05] MEDS: guaiFENesin 12 HR 600 MG TABCR 1200 MG PO ×2 (09:23→16:45)
[2020-05-05] MEDS: APIXABAN 2.5 MG TABLET PO ×2 (09:23→16:45)
[2020-05-05] MEDS: METOPROLOL TARTRATE 25 MG TABLET PO ×2 (09:39→20:43)
[2020-05-05] MEDS: AMIODARONE HCL 200 MG TABLET PO ×2 (09:39→16:48)
[2020-05-05 11:53] LABS: Glucose Point of Care 196 (65-105)
--- NOTE | 2020-05-05 12:36 | PM.PNCARD ---
Progress Note: A&P Assessment and Plan (1) Endocarditis: Onset Date: ~04/2020 Code(s): I38 - Endocarditis, valve unspecified Status: Acute Assessment and Plan: Tricuspid valve vegetation on MAYNOR 04/14/2020. On appropriate antibiotics. Management per hospitalist service (2) Chronic respiratory failure with hypoxia, on home oxygen therapy: Code(s): J96.11 - Chronic respiratory failure with hypoxia; Z99.81 - Dependence on supplemental oxygen Status: Acute Assessment and Plan: Management per hospitalist service. ON 4 L of oxygen per nasal cannula. (3) Diastolic congestive heart failure: Code(s): I50.30 - Unspecified diastolic (congestive) heart failure Status: Chronic Assessment and Plan: Normal left ventricular systolic function EF 60-65% on echocardiogram 04/12/2020. Diastolic function is abnormal. Right ventricular chamber dimension is severely enlarged. Right ventricular systolic function is reduced. Negative 780cc 05/04/2020 Transitioned to PO Bumex 1 mg BID today. Metolazone was stopped 05/03/2020 due to significant hypokalemia and did not seem to enhance diuresis Check CXR PA and lateral. If her chest x-ray does not improve despite the diuresis will consult pulmonology (4) Paroxysmal atrial fibrillation: Code(s): I48.0 - Paroxysmal atrial fibrillation Status: Chronic Assessment and Plan: Anticoagulated with apixaban. (5) Hypokalemia: Code(s): E87.6 - Hypokalemia Status: Acute Assessment and Plan: 3.1 again today despite all the supplementation yesterday. Forty mEq of potassium IV x1 today Increase p.o. potassium to t.i.d.. BMP in the morning. Additional Plan PT/OT Plan discussed with Dr Barth 1450 05/05/2020 Subjective Date/time seen: 05/05/20 12:36 Interval history: Follow-up for:Endocarditis, shortness of breath: CHF versus COPD, hypokalemia. Date of service: 05/05/2020 Subjective: Tired. No chest discomfort. Complains of abdominal discomfort. Has not had BM for 4 days. No nausea or vomiting. Short of breath with activity. Still having difficulty getting secretions up Review of Systems Review of Systems: All systems reviewed & are unremarkable except as noted in HPI and below Constitutional: Constitutional: Reports fatigue and Reports weakness Eyes: Eyes: Denies blurry vision ENT: Denies dizziness, Reports hearing loss, Denies lip swelling and Denies throat swelling Cardiovascular: Cardiovascular: Reports dyspnea ( improved) and Reports dyspnea on exertion ( improved) Respiratory: Respiratory: Reports dyspnea ( improved), Reports dyspnea on exertion ( improved) and Denies wheezing Gastrointestinal: Gastrointestinal: Reports abdominal pain, Denies nausea and Denies vomiting Musculoskeletal: Musculoskeletal: Denies back pain and Reports arthralgias ( Right hip) Integumentary/Breasts: Skin/Breast: Reports dry skin Neurologic: Denies dizziness and Reports weakness Psychiatric: Psychiatric: Reports anxiety Endocrine: Endocrine: Reports fatigue and Denies flushing Hematologic/Lymphatic: Hematologic/Lymphatic: Denies easy bleeding Allergic/Immunologic: Allergic/Immunologic: Denies lip swelling, Denies throat swelling and Denies wheezing Exam Const: General: no acute distress Other: Elderly overweight lady sitting up in chair eating lunch. Breathing comfortable at this time on nasal cannula oxygen at 4 L. HENMT: Head: normal to inspection, normocephalic and atraumatic General nose exam: Normal nares present and no epistaxis Mouth: Yes dry mucous membranes Eyes: Sclera: sclerae normal Pupils: Equal, round and reactive pupils present Neck: Neck: supple Resp: Auscultation: wheezes (diffsue both sides ) Oth
[2020-05-05 13:04] LABS: SARS-CoV-2 RNA PCR Negative
--- NOTE | 2020-05-05 14:54 | P.PNIM_ITS ---
Progress Note: A&P Assessment and Plan (1) Chronic respiratory failure with hypoxia, on home oxygen therapy: Code(s): J96.11 - Chronic respiratory failure with hypoxia; Z99.81 - Dependence on supplemental oxygen Status: Acute Assessment and Plan: Likely secondary to CHF exacerbation and COPD. Previously on BiPAP and now weaned down to 4L per NC. She is typically on 3L at home. CXR performed 05/03/20 shows rather extensive acute airspace disease with mild interval progression. Patient appears clinically improved. * Continue IV diuresis * Transition to PO steroids * Supplemental O2 to maintain O2 sat >90% * Continue symbicort, albuterol, atrovent * home O2 evaluation prior to discharge (2) CHF exacerbation: Code(s): I50.9 - Heart failure, unspecified Status: Acute Assessment and Plan: Echo performed 04/12/20 shows LV EF 60-65% with abnormal diastolic function and reduced RV systolic function. She is edematous on exam. She has total 2L negative fluid balance. * Cardiology is following and recommendations are appreciated * Continue Bumex * Metolazone discontinued 05/03 per cardiology recommendations secondary to hypokalemia * Continue fluid restriction. Monitor I&O closely (3) Chronic obstructive pulmonary disease: Code(s): J44.9 - Chronic obstructive pulmonary disease, unspecified Status: Chronic Assessment and Plan: Chronic history of COPD. See above. * Continue with scheduled nebs and symbicort * Weaned to 60 mg PO Prednisone 05/04. IV solumedrol discontinued. Monitor closely. * Supplemental O2 as above. 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 This is to continue through 05/22 * Continue Rocephin and Ampicillin per ID recommendations through 05/22/20. * Will need follow up with her established slip laster, Dr. Gomes (5) Hypokalemia: Code(s): E87.6 - Hypokalemia Status: Acute Assessment and Plan: Patient has had significant hypokalemia with lowest at 2.4. Suspect this is due to diuretic therapy. potassium low at 2.9 today despite receiving 80 mEq PO and 40 mEq IV on 05/04. * Continue potassium supplementation.Monitor potassium closely and replace as needed * Metolazone has been discontinued. (6) Type 2 diabetes mellitus with hyperglycemia, without long-term current use of insulin: Code(s): E11.65 - Type 2 diabetes mellitus with hyperglycemia Status: Chronic Assessment and Plan: A1c 5.8. Blood sugars reviewed and were elevated in the 250-350 range. On 05/03, she had two readings in the 360s. No evidence of metabolic acidosis. Anion gap is normal. Beta-hydroxybutyrate is wnl. Do not suspect DKA. Significant elevation probably secondary to steroids as A1c is not reflective of uncontrolled blood sugars. Blood sugars improved following Lantus addition. * Continue Accuchecks ACHS, hypoglycemia protocol, correctional insulin home regimen * Continue diabetic carb consistent diet * Continue 15 units Lantus qHS. Initiated on 05/03 for better control. * Anticipate continued improvement as steroids are weaned (7) Paroxysmal atrial fibrillation: Code(s): I48.0 - Paroxysmal atrial fibrillation Status: Chronic Assessment and Plan: Rate is controlled. * Continue amiodarone, Cardizem, metoprolo
--- NOTE | 2020-05-05 14:54 | PM.IMPN ---
Progress Note: A&P Assessment and Plan (1) Chronic respiratory failure with hypoxia, on home oxygen therapy: Code(s): J96.11 - Chronic respiratory failure with hypoxia; Z99.81 - Dependence on supplemental oxygen Status: Acute Assessment and Plan: Likely secondary to CHF exacerbation and COPD. Previously on BiPAP and now weaned down to 4L per NC. She is typically on 3L at home. CXR performed 05/03/20 shows rather extensive acute airspace disease with mild interval progression. Patient appears clinically improved. Continue IV diuresis Transition to PO steroids Supplemental O2 to maintain O2 sat >90% Continue symbicort, albuterol, atrovent home O2 evaluation prior to discharge (2) CHF exacerbation: Code(s): I50.9 - Heart failure, unspecified Status: Acute Assessment and Plan: Echo performed 04/12/20 shows LV EF 60-65% with abnormal diastolic function and reduced RV systolic function. She is edematous on exam. She has total 2L negative fluid balance. Cardiology is following and recommendations are appreciated Continue Bumex Metolazone discontinued 05/03 per cardiology recommendations secondary to hypokalemia Continue fluid restriction. Monitor I&O closely (3) Chronic obstructive pulmonary disease: Code(s): J44.9 - Chronic obstructive pulmonary disease, unspecified Status: Chronic Assessment and Plan: Chronic history of COPD. See above. Continue with scheduled nebs and symbicort Weaned to 60 mg PO Prednisone 05/04. IV solumedrol discontinued. Monitor closely. Supplemental O2 as above. 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 This is to continue through 05/22 Continue Rocephin and Ampicillin per ID recommendations through 05/22/20. Will need follow up with her established [place] guide, Dr. Gomes (5) Hypokalemia: Code(s): E87.6 - Hypokalemia Status: Acute Assessment and Plan: Patient has had significant hypokalemia with lowest at 2.4. Suspect this is due to diuretic therapy. potassium low at 2.9 today despite receiving 80 mEq PO and 40 mEq IV on 05/04. Continue potassium supplementation.Monitor potassium closely and replace as needed Metolazone has been discontinued. (6) Type 2 diabetes mellitus with hyperglycemia, without long-term current use of insulin: Code(s): E11.65 - Type 2 diabetes mellitus with hyperglycemia Status: Chronic Assessment and Plan: A1c 5.8. Blood sugars reviewed and were elevated in the 250-350 range. On 05/03, she had two readings in the 360s. No evidence of metabolic acidosis. Anion gap is normal. Beta-hydroxybutyrate is wnl. Do not suspect DKA. Significant elevation probably secondary to steroids as A1c is not reflective of uncontrolled blood sugars. Blood sugars improved following Lantus addition. Continue Accuchecks ACHS, hypoglycemia protocol, correctional insulin home regimen Continue diabetic carb consistent diet Continue 15 units Lantus qHS. Initiated on 05/03 for better control. Anticipate continued improvement as steroids are weaned (7) Paroxysmal atrial fibrillation: Code(s): I48.0 - Paroxysmal atrial fibrillation Status: Chronic Assessment and Plan: Rate is controlled. Continue amiodarone, Cardizem, metoprolol, and eliquis (8) Essential hypertension: Code(s): I10 - Essential (primary) hypertension Status: Chronic Assessment and Plan: Blood pressures reviewed and remain low-normal in the 110-130 systolic. Continue Cardizem and metoprolol Monitor blood pressure daily (9) Obstructive sleep apnea on CPAP: Code(s): G47.33 - Obstructive sleep apnea (adult) (pediatric); Z99.89 - Dependence
[2020-05-05] MEDS: SENNA/DOCUSATE SODIUM TABLET 1 TAB PO (15:11)
[2020-05-05] MEDS: polyethylene glycoL 3350 17 GM POWD.PACK PO (15:12)
[2020-05-05 16:55] LABS: Glucose Point of Care 314 (65-105)
[2020-05-05 17:14] LABS: Potassium 3.7 mmol/L (3.4-5.0)
[2020-05-05] MEDS: INSULIN GLARGINE (*BKC) 100 UNITS/ML 15 UNITS SUB-Q (20:48)
[2020-05-05 22:40] LABS: Glucose Point of Care 389 (65-105)
[2020-05-05] MEDS: INSULIN ASPART (*BKC) 100 UNITS/ML 6 UNITS SUB-Q ×2 (22:54)
[2020-05-05] MEDS: traMADol HCL (*CRX) 50 MG TABLET PO (22:56)
[2020-05-06] VITALS (13 sets, daily range): BP systolic 98–119; BP diastolic 54–65; PULSE 73–86; RESP 16–20; TEMP 36.8–37.1; O2SAT 92–96
[2020-05-06] MEDS: AMPICILLIN 1 GM/NS 50 ML 1 GM/50 ML BAG IVPB ×6 (00:29→20:42)
[2020-05-06] MEDS: LORazepam INJ (*CRX) 2 MG/ML VIAL 0.5 MG IV PUSH (02:00)
[2020-05-06] MEDS: CENTRAL LINE FLUSH 10 ML IV PUSH ×4 (02:01→20:49)
[2020-05-06] MEDS: IPRATROPIUM BR 0.02% INH SOLN 0.5 MG/2.5 ML VIAL INHALATION ×4 (02:48→20:11)
[2020-05-06] MEDS: ALBUTEROL SULFATE NEB 2.5 MG/0.5 ML INH 5 MG INHALATION ×4 (02:48→20:11)
[2020-05-06] MEDS: CENTRAL LINE FLUSH 20 ML IV PUSH (04:50)
[2020-05-06 05:02] LABS: Hematocrit 26.9 % (37.0-47.0); Hemoglobin 8.5 g/dL (12.0-15.0); Mean Corpuscular HGB Conc 31.6 g/dl (32-36); Mean Corpuscular Hemoglobin 29.3 pg (26-34); Mean Corpuscular Volume 92.8 fl (80-100); Mean Platelet Volume 11.4 fl (7.4-10.4); Platelet Count Result 263 k/mm3 (150-375); Red Cell Distribution Width 15.1 % (11.5-14.5); White Blood Count 12.9 K/mm3 (4.5-10.0)
[2020-05-06 05:50] LABS: Alanine Aminotransferase 55 U/L (4-35); Albumin Level 2.7 g/dL (3.5-5.1); Alkaline Phosphatase 98 U/L (38-126); Anion Gap 15.99999 mmol/L (8-16); Aspartate Amino Transferase 124 U/L (14-36); Bilirubin,Total 0.4 mg/dL (0.2-1.3); Blood Urea Nitrogen 41 mg/dL (7-17); Calcium 8.2 mg/dL (8.4-10.2); Carbon Dioxide > 40 mmol/L (22-30); Chloride 81 mmol/L (98-107); Estimated Glomerular Filt Rate 43; Glucose 198 mg/dL (65-105); Magnesium 2.2 mg/dL (1.6-2.3); Potassium 3.9 mmol/L (3.4-5.0); Sodium 137 mmol/L (137-145)
[2020-05-06] MEDS: LEVOTHYROXINE SODIUM 75 MCG TABLET PO (05:53)
[2020-05-06] MEDS: INSULIN HUMAN REGULAR (*BKC) 100 UNITS/ML SUB-Q ×2 (05:54→17:13)
[2020-05-06 05:58] LABS: Glucose Point of Care 201 (65-105)
[2020-05-06 07:39] LABS: Glucose Point of Care 143 (65-105)
[2020-05-06] MEDS: guaiFENesin 12 HR 600 MG TABCR 1200 MG PO ×2 (09:21→17:16)
[2020-05-06] MEDS: BUMETANIDE 1 MG TABLET PO (09:21)
[2020-05-06] MEDS: predniSONE 20 MG TABLET 60 MG PO (09:21)
[2020-05-06] MEDS: AMIODARONE HCL 200 MG TABLET PO ×2 (09:22→17:16)
[2020-05-06] MEDS: ACIDOPHILUS/BULGARICUS CHEWABLE TABLET 2 TABLET PO ×2 (09:23→17:17)
[2020-05-06] MEDS: METOPROLOL TARTRATE 25 MG TABLET PO ×2 (09:23→20:40)
[2020-05-06] MEDS: APIXABAN 2.5 MG TABLET PO ×2 (09:23→17:16)
[2020-05-06] MEDS: polyethylene glycoL 3350 17 GM POWD.PACK PO (09:24)
[2020-05-06] MEDS: POTASSIUM CITRATE 5 MEQ TAB CR 40 MEQ PO ×2 (09:24→17:15)
[2020-05-06] MEDS: FLUTICASONE PROPIONATE 0.05% NA SPR 16 GM BTL (*BKC) 1 SPRAY NASAL ×2 (09:24→20:44)
[2020-05-06] MEDS: acetaZOLAMIDE SODIUM FOR INJ 500 MG VIAL 250 MG IV PUSH (11:00)
[2020-05-06 12:02] LABS: Glucose Point of Care 167 (65-105)
--- NOTE | 2020-05-06 12:06 | PM.IMPN ---
Progress Note: A&P Assessment and Plan (1) Chronic respiratory failure with hypoxia, on home oxygen therapy: Code(s): J96.11 - Chronic respiratory failure with hypoxia; Z99.81 - Dependence on supplemental oxygen Status: Acute Assessment and Plan: Likely secondary to CHF exacerbation and COPD. Previously on BiPAP and now weaned down to 3.5L per NC. She is typically on 3L at home. CXR performed 05/03/20 shows rather extensive acute airspace disease with mild interval progression. Patient appears clinically improved. CXR today shows improvement. Continue diuresis Continue PO steroid taper Supplemental O2 to maintain O2 sat 90% or above Continue symbicort, albuterol, atrovent Home O2 evaluation prior to discharge (2) CHF exacerbation: Code(s): I50.9 - Heart failure, unspecified Status: Acute Assessment and Plan: Echo performed 04/12/20 shows LV EF 60-65% with abnormal diastolic function and reduced RV systolic function. She is edematous on exam. She has total 3L negative fluid balance. CXR 05/06 shows improved pulmonary edema. Cardiology is following and recommendations are appreciated Bumex decreased to 1 mg daily. Metolazone discontinued 05/03 per cardiology recommendations secondary to hypokalemia Continue fluid restriction. Monitor I&O closely (3) Chronic obstructive pulmonary disease: Code(s): J44.9 - Chronic obstructive pulmonary disease, unspecified Status: Chronic Assessment and Plan: Chronic history of COPD. See above. Continue with scheduled nebs and symbicort Continue 60 mg PO Prednisone x3 days. Continue taper. IV solumedrol discontinued 05/04. Monitor closely. Supplemental O2 as above. 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 This is to continue through 05/22 Continue Rocephin and Ampicillin per ID recommendations through 05/22/20. Will need follow up with her established histology manager, Dr. Gomes (5) Hypokalemia: Code(s): E87.6 - Hypokalemia Status: Acute Assessment and Plan: Patient has had significant hypokalemia with lowest at 2.4. Suspect this is due to diuretic therapy. She has received aggressive potassium supplementation. She is finally showing some improvement in potassium levels. Stable at 3.9 today. Continue potassium supplementation 40 mEq bid Monitor potassium closely and replace as needed Metolazone has been discontinued. (6) Hypochloremic alkalosis: Code(s): E87.3 - Alkalosis Status: Acute Assessment and Plan: Chloride continues to decline; 81 today. Suspect contraction alkalosis secondary to aggressive diuresis. Administer acetazolamide 250 mg daily x2 doses Monitor BMP closely Bumex decreased to 1 mg daily. (7) Type 2 diabetes mellitus with hyperglycemia, without long-term current use of insulin: Code(s): E11.65 - Type 2 diabetes mellitus with hyperglycemia Status: Chronic Assessment and Plan: A1c 5.8. Blood sugars reviewed and were elevated in the 250-350 range. On 05/03, she had two readings in the 360s. No evidence of metabolic acidosis. Anion gap is normal. Beta-hydroxybutyrate is wnl. Do not suspect DKA. Significant elevation probably secondary to steroids as A1c is not reflective of uncontrolled blood sugars. Blood sugars improved following Lantus addition. Continue Accuchecks ACHS, hypoglycemia protocol, correctional insulin home regimen Continue diabetic carb consistent diet Continue 15 units Lantus qHS. Initiated on 05/03 for better control. Anticipate continued improvement as steroids are weaned (8) Paroxysmal atrial fibrillation: Code(s): I48.0 - Paroxysmal atrial fibrillation Status: Chronic
[2020-05-06] MEDS: MAGNESIUM HYDROXIDE SUSP 30 ML UDC PO (12:20)
--- NOTE | 2020-05-06 13:49 | PCOTNOTE ---
Attempted to see patient this pm, however patient presented with increased fatigue. Pt declined stating she was too tired.
--- NOTE | 2020-05-06 14:18 | PM.PNCARD ---
Progress Note: A&P Assessment and Plan (1) Endocarditis: Onset Date: ~04/2020 Code(s): I38 - Endocarditis, valve unspecified Status: Acute Assessment and Plan: Tricuspid valve vegetation on MAYNOR 04/14/2020. On appropriate antibiotics. Management per hospitalist service (2) Chronic respiratory failure with hypoxia, on home oxygen therapy: Code(s): J96.11 - Chronic respiratory failure with hypoxia; Z99.81 - Dependence on supplemental oxygen Status: Acute Assessment and Plan: Management per hospitalist service. On 4 L of oxygen per nasal cannula. (3) Diastolic congestive heart failure: Code(s): I50.30 - Unspecified diastolic (congestive) heart failure Status: Chronic Assessment and Plan: Normal left ventricular systolic function EF 60-65% on echocardiogram 04/12/2020. Diastolic function is abnormal. Right ventricular chamber dimension is severely enlarged. Right ventricular systolic function is reduced. Diuresing well. Chest x-ray personally reviewed from 05/05/2020 pulmonary edema improved. Diamox was added 05/06/2020 Decrease Bumex to 1 mg daily. Will see how she does with this regimen. (4) Paroxysmal atrial fibrillation: Code(s): I48.0 - Paroxysmal atrial fibrillation Status: Chronic Assessment and Plan: Anticoagulated with apixaban. (5) Hypokalemia: Code(s): E87.6 - Hypokalemia Status: Acute Assessment and Plan: Potassium 3.9 05/06/2020. Continue potassium citrate 40 mEq b.i.d. today. Will re-evaluate need for potassium supplementation tomorrow. Additional Plan Hopefully she will be able to be discharged tomorrow. Plan discussed with Dr Barth [id number] 05/06/2020 Subjective Date/time seen: 05/06/20 14:18 Interval history: Follow-up for:Endocarditis, shortness of breath: CHF versus COPD, hypokalemia. Date of service: 05/06/2020 Subjective: Tired and just wants to sleep. Denied chest pain. Breathing somewhat better. Able to lay fairly flat in bed. does not want to wear BiPAP tonight. States she could not breathe and they would not take it off . Review of Systems Review of Systems: All systems reviewed & are unremarkable except as noted in HPI and below Constitutional: Constitutional: Reports fatigue and Reports weakness Eyes: Eyes: Denies blurry vision ENT: Denies dizziness, Reports hearing loss, Denies lip swelling and Denies throat swelling Cardiovascular: Cardiovascular: Reports dyspnea ( improved) and Reports dyspnea on exertion ( improved) Respiratory: Respiratory: Reports dyspnea ( improved), Reports dyspnea on exertion ( improved) and Denies wheezing Gastrointestinal: Gastrointestinal: Reports abdominal pain, Denies nausea and Denies vomiting Musculoskeletal: Musculoskeletal: Denies back pain and Reports arthralgias ( Right hip) Integumentary/Breasts: Skin/Breast: Reports dry skin Neurologic: Denies dizziness and Reports weakness Psychiatric: Psychiatric: Reports anxiety Endocrine: Endocrine: Reports fatigue and Denies flushing Hematologic/Lymphatic: Hematologic/Lymphatic: Denies easy bleeding Allergic/Immunologic: Allergic/Immunologic: Denies lip swelling, Denies throat swelling and Denies wheezing Exam Const: General: no acute distress Other: Elderly overweight lady in bed. Cooperative. HENMT: Head: normal to inspection, normocephalic and atraumatic General nose exam: Normal nares present and no epistaxis Mouth: Yes dry mucous membranes Eyes: Sclera: sclerae normal Pupils: Equal, round and reactive pupils present Neck: Neck: supple Resp: Other: No wheezing. Inspiratory rhonchi right base. Cardio: Rate: regular rate Rhythm: regular rhythm Heart sounds: no gallops GI: Auscultation
--- NOTE | 2020-05-06 15:11 | PCRCNOTE ---
PT ON 3-4 L HOME O2. PT PLANS ON DISCHARGING TO [facility]. SHE WILL NOT NEED A HOME O2 EVAL. [facility] HAS CAPABILITIES TO TITRATE O2 NEEDED.
--- NOTE | 2020-05-06 15:18 | PCRCNOTE ---
RN NOTIFIED HOME O2 EVAL NOT NEEDED WHEN PT PLANS TO DISCHARGE TO SNF
[2020-05-06 17:13] LABS: Glucose Point of Care 271 (65-105)
[2020-05-06] MEDS: DOCUSATE SODIUM 100 MG CAPSULE PO (20:41)
[2020-05-06] MEDS: INSULIN GLARGINE (*BKC) 100 UNITS/ML 15 UNITS SUB-Q (20:44)
--- NOTE | 2020-05-06 23:20 | PC.NURSE ---
Phone call to MIRLANDE Del Rio at this time to confirm orders to renew Q4 ampicillin for the patient. Orders were given to continue the antibiotics.
[2020-05-07] VITALS (17 sets, daily range): BP systolic 109–119; BP diastolic 46–51; PULSE 75–96; RESP 14–20; TEMP 36.8–37.3; O2SAT 92–98
[2020-05-07] MEDS: AMPICILLIN 1 GM/NS 50 ML 1 GM/50 ML BAG IVPB ×6 (00:21→21:59)
[2020-05-07] MEDS: CENTRAL LINE FLUSH 10 ML IV PUSH ×5 (00:21→21:58)
[2020-05-07] MEDS: LORazepam INJ (*CRX) 2 MG/ML VIAL 0.5 MG IV PUSH ×2 (02:23→22:05)
[2020-05-07] MEDS: IPRATROPIUM BR 0.02% INH SOLN 0.5 MG/2.5 ML VIAL INHALATION ×4 (02:28→18:51)
[2020-05-07] MEDS: ALBUTEROL SULFATE NEB 2.5 MG/0.5 ML INH 5 MG INHALATION ×4 (02:29→18:50)
[2020-05-07] MEDS: CENTRAL LINE FLUSH 20 ML IV PUSH (04:45)
[2020-05-07 04:49] LABS: Hematocrit 28.2 % (37.0-47.0); Hemoglobin 8.6 g/dL (12.0-15.0); Mean Corpuscular HGB Conc 30.5 g/dl (32-36); Mean Corpuscular Hemoglobin 28.5 pg (26-34); Mean Corpuscular Volume 93.4 fl (80-100); Mean Platelet Volume 11.5 fl (7.4-10.4); Platelet Count Result 293 k/mm3 (150-375); Red Blood Count 3.02 M/mm3 (4.2-5.4); Red Cell Distribution Width 15.6 % (11.5-14.5); White Blood Count 14.6 K/mm3 (4.5-10.0)
[2020-05-07 05:28] LABS: Alanine Aminotransferase 53 U/L (4-35); Albumin Level 2.8 g/dL (3.5-5.1); Alkaline Phosphatase 107 U/L (38-126); Anion Gap 12.99999 mmol/L (8-16); Aspartate Amino Transferase 87 U/L (14-36); Bilirubin,Total 0.4 mg/dL (0.2-1.3); Blood Urea Nitrogen 34 mg/dL (7-17); Calcium 8.3 mg/dL (8.4-10.2); Carbon Dioxide > 40 mmol/L (22-30); Chloride 85 mmol/L (98-107); Estimated Glomerular Filt Rate 39; Glucose 251 mg/dL (65-105); Potassium 3.8 mmol/L (3.4-5.0); Sodium 138 mmol/L (137-145)
[2020-05-07 05:35] LABS: Glucose Point of Care 226 (65-105)
[2020-05-07] MEDS: LEVOTHYROXINE SODIUM 75 MCG TABLET PO (05:43)
[2020-05-07] MEDS: INSULIN HUMAN REGULAR (*BKC) 100 UNITS/ML SUB-Q ×3 (05:44→16:59)
[2020-05-07] MEDS: METOPROLOL TARTRATE 25 MG TABLET PO ×2 (08:34→21:57)
[2020-05-07] MEDS: polyethylene glycoL 3350 17 GM POWD.PACK PO (08:34)
[2020-05-07] MEDS: guaiFENesin 12 HR 600 MG TABCR 1200 MG PO ×2 (08:34→16:11)
[2020-05-07] MEDS: ACIDOPHILUS/BULGARICUS CHEWABLE TABLET 2 TABLET PO ×2 (08:34→16:13)
[2020-05-07] MEDS: POTASSIUM CITRATE 5 MEQ TAB CR 40 MEQ PO ×2 (08:35→16:11)
[2020-05-07] MEDS: DOCUSATE SODIUM 100 MG CAPSULE PO ×2 (08:35→21:57)
[2020-05-07] MEDS: AMIODARONE HCL 200 MG TABLET PO ×2 (08:35→16:13)
[2020-05-07] MEDS: BUMETANIDE 1 MG TABLET PO (08:35)
[2020-05-07] MEDS: APIXABAN 2.5 MG TABLET PO ×2 (08:35→16:12)
[2020-05-07] MEDS: FLUTICASONE PROPIONATE 0.05% NA SPR 16 GM BTL (*BKC) 1 SPRAY NASAL ×2 (08:35→21:58)
[2020-05-07] MEDS: acetaZOLAMIDE SODIUM FOR INJ 500 MG VIAL 250 MG IV PUSH (08:36)
[2020-05-07] MEDS: predniSONE 10 MG TABLET 50 MG PO (08:39)
[2020-05-07 12:19] LABS: SARS-CoV-2 RNA PCR Negative
[2020-05-07 12:37] LABS: Glucose Point of Care 215 (65-105)
--- NOTE | 2020-05-07 13:46 | P.PNIM_ITS ---
Progress Note: A&P Assessment and Plan (1) Chronic respiratory failure with hypoxia, on home oxygen therapy: Code(s): J96.11 - Chronic respiratory failure with hypoxia; Z99.81 - Dependence on supplemental oxygen Status: Acute Assessment and Plan: Likely secondary to CHF exacerbation and COPD. Previously on BiPAP and now weaned down to 3.5L per NC. She is typically on 3L at home. Patient appears clinically improved. CXR 05/05 shows improvement. * Continue diuresis with Bumex * Continue PO steroid taper * Supplemental O2 to maintain O2 sat 90% or above * Continue symbicort, albuterol, atrovent * Home O2 evaluation prior to discharge (2) CHF exacerbation: Code(s): I50.9 - Heart failure, unspecified Status: Acute Assessment and Plan: Echo performed 04/12/20 shows LV EF 60-65% with abnormal diastolic function and reduced RV systolic function. She is edematous on exam. She has total ~4L negative fluid balance. CXR 05/05 shows improved pulmonary edema. * Cardiology is following and recommendations are appreciated * Continue Bumex 1 mg daily. * Metolazone discontinued 05/03 per cardiology recommendations secondary to hypo kalemia * Continue fluid restriction. Monitor I&O closely * Will need f/u with established Trail Maintenance Worker, Dr. Gomes (3) Chronic obstructive pulmonary disease: Code(s): J44.9 - Chronic obstructive pulmonary disease, unspecified Status: Chronic Assessment and Plan: Chronic history of COPD. See above. * Continue with scheduled nebs and symbicort * Continue prednisone taper; 50 mg daily x 3 days (08/08). Continue taper. IV solumedrol discontinued 05/04. * Monitor closely. * Supplemental O2 as above. 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 This is to continue through 05/22 * Continue Rocephin and Ampicillin per ID recommendations through 05/22/20. * Will need follow up with her established monitoring manager, is Dr. Gomes (5) Hypokalemia: Code(s): E87.6 - Hypokalemia Status: Acute Assessment and Plan: Patient has had significant hypokalemia with lowest at 2.4. Suspect this is due to diuretic therapy. She has received aggressive potassium supplementation. She is finally showing some improvement in potassium levels. Stable at 3.8 today. * Continue potassium supplementation 40 mEq bid * Monitor potassium closely and replace as needed * Metolazone has been discontinued. (6) Hypochloremic alkalosis: Code(s): E87.3 - Alkalosis Status: Acute Assessment and Plan: Chloride improved to 85 today. Suspect contraction alkalosis secondary to aggressive diuresis. * Administered acetazolamide 250 mg daily x2 doses * Monitor BMP closely * Continue Bumex at 1 mg daily. (7) Type 2 diabetes mellitus with hyperglycemia, without long-term current use of insulin: Code(s): E11.65 - Type 2 diabetes mellitus with hyperglycemia Status: Chronic Assessment and Plan: A1c 5.8. Blood sugars reviewed and were elevated in the 250-350 range. On 05/03, she had two readings in the 360s. No evidence of metabolic acidosis. Anion gap is normal. B
--- NOTE | 2020-05-07 13:46 | PM.IMPN ---
Progress Note: A&P Assessment and Plan (1) Chronic respiratory failure with hypoxia, on home oxygen therapy: Code(s): J96.11 - Chronic respiratory failure with hypoxia; Z99.81 - Dependence on supplemental oxygen Status: Acute Assessment and Plan: Likely secondary to CHF exacerbation and COPD. Previously on BiPAP and now weaned down to 3.5L per NC. She is typically on 3L at home. Patient appears clinically improved. CXR 05/05 shows improvement. Continue diuresis with Bumex Continue PO steroid taper Supplemental O2 to maintain O2 sat 90% or above Continue symbicort, albuterol, atrovent Home O2 evaluation prior to discharge (2) CHF exacerbation: Code(s): I50.9 - Heart failure, unspecified Status: Acute Assessment and Plan: Echo performed 04/12/20 shows LV EF 60-65% with abnormal diastolic function and reduced RV systolic function. She is edematous on exam. She has total ~4L negative fluid balance. CXR 05/05 shows improved pulmonary edema. Cardiology is following and recommendations are appreciated Continue Bumex 1 mg daily. Metolazone discontinued 05/03 per cardiology recommendations secondary to hypokalemia Continue fluid restriction. Monitor I&O closely Will need f/u with established Culinary Internship, Dr. Gomes (3) Chronic obstructive pulmonary disease: Code(s): J44.9 - Chronic obstructive pulmonary disease, unspecified Status: Chronic Assessment and Plan: Chronic history of COPD. See above. Continue with scheduled nebs and symbicort Continue prednisone taper; 50 mg daily x 3 days (08/08). Continue taper. IV solumedrol discontinued 05/04. Monitor closely. Supplemental O2 as above. 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 This is to continue through 05/22 Continue Rocephin and Ampicillin per ID recommendations through 05/22/20. Will need follow up with her established yeast distiller, is Dr. Gomes (5) Hypokalemia: Code(s): E87.6 - Hypokalemia Status: Acute Assessment and Plan: Patient has had significant hypokalemia with lowest at 2.4. Suspect this is due to diuretic therapy. She has received aggressive potassium supplementation. She is finally showing some improvement in potassium levels. Stable at 3.8 today. Continue potassium supplementation 40 mEq bid Monitor potassium closely and replace as needed Metolazone has been discontinued. (6) Hypochloremic alkalosis: Code(s): E87.3 - Alkalosis Status: Acute Assessment and Plan: Chloride improved to 85 today. Suspect contraction alkalosis secondary to aggressive diuresis. Administered acetazolamide 250 mg daily x2 doses Monitor BMP closely Continue Bumex at 1 mg daily. (7) Type 2 diabetes mellitus with hyperglycemia, without long-term current use of insulin: Code(s): E11.65 - Type 2 diabetes mellitus with hyperglycemia Status: Chronic Assessment and Plan: A1c 5.8. Blood sugars reviewed and were elevated in the 250-350 range. On 05/03, she had two readings in the 360s. No evidence of metabolic acidosis. Anion gap is normal. Beta-hydroxybutyrate is wnl. Do not suspect DKA. Significant elevation probably secondary to steroids as A1c is not reflective of uncontrolled blood sugars. Blood sugars improved following Lantus addition. Continue Accuchecks ACHS, hypoglycemia protocol, correctional insulin home regimen Continue diabetic carb consistent diet Continue 15 units Lantus qHS. Initiated on 05/03 for better control. Anticip
--- NOTE | 2020-05-07 14:04 | PM.PNCARD ---
Progress Note: A&P Assessment and Plan (1) Endocarditis: Onset Date: ~04/2020 Code(s): I38 - Endocarditis, valve unspecified Status: Acute Assessment and Plan: Tricuspid valve vegetation on MAYNOR 04/14/2020. On appropriate antibiotics. Management per hospitalist service. Antibiotics to continue through May 22, 2020. She should contact her green plumber Dr. Alverto Gomes for follow-up of the vegetation on her tricuspid valve. Recommend she call to make an appointment to see Dr. Gomes the week of May 31 (2) Chronic respiratory failure with hypoxia, on home oxygen therapy: Code(s): J96.11 - Chronic respiratory failure with hypoxia; Z99.81 - Dependence on supplemental oxygen Status: Acute Assessment and Plan: Management per hospitalist service. On 4 L of oxygen per nasal cannula. (3) Diastolic congestive heart failure: Code(s): I50.30 - Unspecified diastolic (congestive) heart failure Status: Chronic Assessment and Plan: Normal left ventricular systolic function EF 60-65% on echocardiogram 04/12/2020. Diastolic function is abnormal. Right ventricular chamber dimension is severely enlarged. Right ventricular systolic function is reduced. Diuresing well. Continue Bumex to 1 mg daily. Continuation of Diamox up to hospitalist service. Closely monitor renal function and electrolytes as an outpatient. (4) Paroxysmal atrial fibrillation: Code(s): I48.0 - Paroxysmal atrial fibrillation Status: Chronic Assessment and Plan: Anticoagulated with apixaban. (5) Hypokalemia: Code(s): E87.6 - Hypokalemia Status: Acute Assessment and Plan: Potassium 3.8 05/07/2020. Continue potassium citrate 40 mEq b.i.d. On discharge. Again closely monitor renal function and electrolytes as an outpatient. May need to decrease potassium supplementation to just once a day. Additional Plan No further cardiac recommendations. Cardiology will follow-up p.r.n.. Plan discussed with Dr. Carrasco [id number] 05/07/2020 Subjective Date/time seen: 05/07/20 14:04 Interval history: Follow-up for:Endocarditis, shortness of breath: CHF versus COPD, hypokalemia. Date of service: 05/07/2020 Subjective: Up in chair. Denied chest discomfort. States breathing is pretty good today. Still needs to have a bowel movement. Lightheaded if is coughing and unable to get secretions out of her throat. Review of Systems Constitutional: Constitutional: Reports fatigue and Reports weakness Eyes: Eyes: Denies blurry vision ENT: Denies dizziness, Reports hearing loss, Denies lip swelling and Denies throat swelling Cardiovascular: Cardiovascular: Reports dyspnea ( improved) and Reports dyspnea on exertion ( improved) Respiratory: Respiratory: Reports dyspnea ( improved), Reports dyspnea on exertion ( improved) and Denies wheezing Gastrointestinal: Gastrointestinal: Reports abdominal pain, Denies nausea and Denies vomiting Musculoskeletal: Musculoskeletal: Denies back pain and Reports arthralgias ( Right hip) Integumentary/Breasts: Skin/Breast: Reports dry skin Neurologic: Denies dizziness and Reports weakness Psychiatric: Psychiatric: Reports anxiety Endocrine: Endocrine: Reports fatigue and Denies flushing Hematologic/Lymphatic: Hematologic/Lymphatic: Denies easy bleeding Allergic/Immunologic: Allergic/Immunologic: Denies lip swelling, Denies throat swelling and Denies wheezing Exam Const: General: no acute distress Other: Elderly overweight lady up in chair. Wants to go back to bed. Awake alert cooperative. HENMT: Head: normal to inspection, normocephalic and atraumatic General nose exam: Normal nares present and no epistaxis Mouth: Yes dry mucous membranes Eyes: Sclera: s
[2020-05-07] MEDS: MINERAL OIL 30 ML UDC PO (16:06)
[2020-05-07] MEDS: LACTULOSE 20 GM/30 ML UDC PO (16:06)
[2020-05-07 16:58] LABS: Glucose Point of Care 392 (65-105)
[2020-05-07] MEDS: INSULIN GLARGINE (*BKC) 100 UNITS/ML 15 UNITS SUB-Q (21:58)
[2020-05-07] MEDS: GLUCOSE ORAL GEL 15 GM OF GLUCSE IN 37.5 GM TUBE PO (22:06)
[2020-05-07 23:06] LABS: Glucose Point of Care 72 (65-105)
[2020-05-08] VITALS (10 sets, daily range): BP systolic 116–123; BP diastolic 55–84; PULSE 78–86; RESP 18–22; TEMP 36.2–36.6; O2SAT 96–99
[2020-05-08] MEDS: AMPICILLIN 1 GM/NS 50 ML 1 GM/50 ML BAG IVPB ×5 (00:38→16:44)
[2020-05-08] MEDS: IPRATROPIUM BR 0.02% INH SOLN 0.5 MG/2.5 ML VIAL INHALATION ×3 (03:02→14:02)
[2020-05-08] MEDS: ALBUTEROL SULFATE NEB 2.5 MG/0.5 ML INH 5 MG INHALATION ×3 (03:02→14:02)
[2020-05-08] MEDS: LORazepam INJ (*CRX) 2 MG/ML VIAL 0.5 MG IV PUSH (05:30)
[2020-05-08] MEDS: CENTRAL LINE FLUSH 10 ML IV PUSH ×2 (05:33→14:51)
[2020-05-08] MEDS: LEVOTHYROXINE SODIUM 75 MCG TABLET PO (05:38)
[2020-05-08] MEDS: INSULIN HUMAN REGULAR (*BKC) 100 UNITS/ML SUB-Q ×2 (05:43→16:50)
[2020-05-08 05:47] LABS: Glucose Point of Care 247 (65-105)
[2020-05-08 06:02] LABS: Basophils Absolute Auto 0.1 K/mm3 (0.0-0.1); Basophils Percent Auto 0.8 % (0.2-1.2); Hematocrit 26.8 % (37.0-47.0); Hemoglobin 8.2 g/dL (12.0-15.0); Immature Granulocyte Absolute 1.29 K/mm3 (0.00-0.031); Immature Granulocyte Percent A 8.2 % (0-0.5); Lymphocytes Percent Auto 10.1 % (18.3-44.2); Mean Corpuscular HGB Conc 30.6 g/dl (32-36); Mean Corpuscular Hemoglobin 28.7 pg (26-34); Mean Corpuscular Volume 93.7 fl (80-100); Monocytes Absolute Auto 2.1 K/mm3 (0.1-0.6); Monocytes Percent Auto 13.1 % (2.6-8.5); Neutrophils Absolute Auto 10.7 K/mm3 (1.3-6.7); Neutrophils Percent Auto 67.8 % (45.5-73.1); Nucleated Red Blood Cells Perc 0.1 % (0.0-0.2); Platelet Count Result 290 k/mm3 (150-375); Red Blood Count 2.86 M/mm3 (4.2-5.4); Red Cell Distribution Width 15.5 % (11.5-14.5); White Blood Count 15.8 K/mm3 (4.5-10.0)
[2020-05-08 06:24] LABS: Alanine Aminotransferase 80 U/L (4-35); Albumin Level 2.6 g/dL (3.5-5.1); Alkaline Phosphatase 95 U/L (38-126); Anion Gap 5.99999 mmol/L (8-16); Aspartate Amino Transferase 142 U/L (14-36); Bilirubin,Total 0.5 mg/dL (0.2-1.3); Blood Urea Nitrogen 26 mg/dL (7-17); Calcium 8.2 mg/dL (8.4-10.2); Carbon Dioxide > 40 mmol/L (22-30); Chloride 89 mmol/L (98-107); Estimated Glomerular Filt Rate 43; Glucose 250 mg/dL (65-105); Magnesium 2.4 mg/dL (1.6-2.3); Potassium 3.5 mmol/L (3.4-5.0); Sodium 135 mmol/L (137-145)
[2020-05-08 07:49] LABS: Glucose Point of Care 188 (65-105)
[2020-05-08] MEDS: predniSONE 10 MG TABLET 50 MG PO (09:10)
[2020-05-08] MEDS: guaiFENesin 12 HR 600 MG TABCR 1200 MG PO ×2 (09:11→16:46)
[2020-05-08] MEDS: BUMETANIDE 1 MG TABLET PO (09:11)
[2020-05-08] MEDS: POTASSIUM CITRATE 5 MEQ TAB CR 10 MEQ PO (09:11)
[2020-05-08] MEDS: ACIDOPHILUS/BULGARICUS CHEWABLE TABLET 2 TABLET PO ×2 (09:11→16:46)
[2020-05-08] MEDS: APIXABAN 2.5 MG TABLET PO ×2 (09:11→16:46)
[2020-05-08] MEDS: POTASSIUM CITRATE 5 MEQ TAB CR 40 MEQ PO ×2 (09:12→16:46)
[2020-05-08] MEDS: FLUTICASONE PROPIONATE 0.05% NA SPR 16 GM BTL (*BKC) 1 SPRAY NASAL (09:12)
[2020-05-08] MEDS: polyethylene glycoL 3350 17 GM POWD.PACK PO (09:12)
[2020-05-08] MEDS: DOCUSATE SODIUM 100 MG CAPSULE PO (09:12)
[2020-05-08] MEDS: METOPROLOL TARTRATE 25 MG TABLET PO (09:14)
[2020-05-08] MEDS: AMIODARONE HCL 200 MG TABLET PO ×2 (09:14→16:47)
--- NOTE | 2020-05-08 09:53 | P.DS_ITS ---
DS: Admitting Diagnosis Admitting Diagnosis Admitting Diagnosis: Shortness of breath. DS: Discharge Diagnosis Discharge Diagnosis (1) Chronic respiratory failure with hypoxia, on home oxygen therapy: Code(s): J96.11 - Chronic respiratory failure with hypoxia; Z99.81 - Dependence on supplemental oxygen Status: Acute Assessment and Plan: Likely secondary to CHF exacerbation and COPD. Previously on BiPAP and now weaned down to 3.5-4L per NC. She is typically on 3L at home. Patient appears clinically improved. CXR 05/05 shows improvement. * Continue diuresis with Bumex * Continue PO steroid taper * Supplemental O2 to maintain O2 sat 90% or above * Continue symbicort, albuterol, atrovent * Since she is going to [place], no Home O2 eval needed (2) CHF exacerbation: Code(s): I50.9 - Heart failure, unspecified Status: Acute Assessment and Plan: Echo performed 04/12/20 shows LV EF 60-65% with abnormal diastolic function and re duced RV systolic function. She is edematous on exam. She has total ~4L negative fluid balance. CXR 05/05 shows improved pulmonary edema. * Cardiology is following and recommendations are appreciated. okay for discharge from Cardiology standpoint * Continue Bumex 1 mg daily. * Metolazone discontinued 05/03 per cardiology recommendations secondary to hypokalemia * Continue fluid restriction. Monitor I&O closely * Will need f/u with established Pickling Drum Operator, Dr. Gomes (3) Chronic obstructive pulmonary disease: Code(s): J44.9 - Chronic obstructive pulmonary disease, unspecified Status: Chronic Assessment and Plan: Chronic history of COPD. See above. * Continue with scheduled nebs and symbicort * Continue prednisone taper; 50 mg daily x 3 days (2/3). Continue taper. IV solumedrol discontinued 05/04. * Monitor closely. * Supplemental O2 as above. 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 This is to continue through 05/22 * Continue Rocephin and Ampicillin per ID recommendations through 05/22/20. * Will need follow up with her established criminal profiler, is Dr. Gomes (5) Hypokalemia: Code(s): E87.6 - Hypokalemia Status: Acute Assessment and Plan: Patient has had significant hypokalemia with lowest at 2.4. Suspect this is due to diuretic therapy. She has received aggressive potassium supplementation. She is finally showing some improvement in potassium levels. Stable at 3.5 today. * Continue potassium supplementation 40 mEq bid * Monitor potassium closely and replace as needed * Metolazone has been discontinued. * BMP with mag level next week (6) Hypochloremic alkalosis: Code(s): E87.3 - Alkalosis Status: Acute Assessment and Plan: Chloride improved to 89 today. Suspect contraction alkalosis secondary to aggressive diuresis. * Administered acetazolamide 250 mg daily x2 doses * BMP next week * Continue Bumex at 1 mg daily. (7) Type 2 diabetes mellitus with hyperglycemia, without long-term current use of insulin: Code(s): E11.65 - Type 2 diabetes mellitus with hyperglycemia Status: Chronic
--- NOTE | 2020-05-08 09:53 | PM.DS ---
DS: Admitting Diagnosis Admitting Diagnosis Admitting Diagnosis: Shortness of breath. DS: Discharge Diagnosis Discharge Diagnosis (1) Chronic respiratory failure with hypoxia, on home oxygen therapy: Code(s): J96.11 - Chronic respiratory failure with hypoxia; Z99.81 - Dependence on supplemental oxygen Status: Acute Assessment and Plan: Likely secondary to CHF exacerbation and COPD. Previously on BiPAP and now weaned down to 3.5-4L per [place]. She is typically on 3L at home. Patient appears clinically improved. CXR 05/05 shows improvement. Continue diuresis with Bumex Continue PO steroid taper Supplemental O2 to maintain O2 sat 90% or above Continue symbicort, albuterol, atrovent Since she is going to [place], no Home O2 eval needed (2) CHF exacerbation: Code(s): I50.9 - Heart failure, unspecified Status: Acute Assessment and Plan: Echo performed 04/12/20 shows LV EF 60-65% with abnormal diastolic function and reduced RV systolic function. She is edematous on exam. She has total ~4L negative fluid balance. CXR 05/05 shows improved pulmonary edema. Cardiology is following and recommendations are appreciated. okay for discharge from Cardiology standpoint Continue Bumex 1 mg daily. Metolazone discontinued 05/03 per cardiology recommendations secondary to hypokalemia Continue fluid restriction. Monitor I&O closely Will need f/u with established [employer], Dr. Gomes (3) Chronic obstructive pulmonary disease: Code(s): J44.9 - Chronic obstructive pulmonary disease, unspecified Status: Chronic Assessment and Plan: Chronic history of COPD. See above. Continue with scheduled nebs and symbicort Continue prednisone taper; 50 mg daily x 3 days (2/3). Continue taper. IV solumedrol discontinued 05/04. Monitor closely. Supplemental O2 as above. 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 This is to continue through 05/22 Continue Rocephin and Ampicillin per ID recommendations through 05/22/20. 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 Gomes (5) Hypokalemia: Code(s): E87.6 - Hypokalemia Status: Acute Assessment and Plan: Patient has had significant hypokalemia with lowest at 2.4. Suspect this is due to diuretic therapy. She has received aggressive potassium supplementation. She is finally showing some improvement in potassium levels. Stable at 3.5 today. Continue potassium supplementation 40 mEq bid Monitor potassium closely and replace as needed Metolazone has been discontinued. BMP with mag level next week (6) Hypochloremic alkalosis: Code(s): E87.3 - Alkalosis Status: Acute Assessment and Plan: Chloride improved to 89 today. Suspect contraction alkalosis secondary to aggressive diuresis. Administered acetazolamide 250 mg daily x2 doses BMP next week Continue Bumex at 1 mg daily. (7) Type 2 diabetes mellitus with hyperglycemia, without long-term current use of insulin: Code(s): E11.65 - Type 2 diabetes mellitus with hyperglycemia Status: Chronic Assessment and Plan: A1c 5.8. Blood sugars reviewed and were elevated in the 250-350 range. On 05/03, she had two readings in the 360s. No evidence of metabolic acidosis. Anion gap is normal. Beta-hydroxybutyrate is wnl. Do not suspect DKA. Significant elevation probably secondary to steroids as A1c is not reflective of uncontrolled blood sugars. Blood sugars improved following Lantus addition. Continue Accuchecks
[2020-05-08] MEDS: MINERAL OIL 30 ML UDC PO (11:32)
[2020-05-08 11:38] LABS: Glucose Point of Care 142 (65-105)
[2020-05-08 16:43] LABS: Glucose Point of Care 326 (65-105)
== END 2020-05-08 18:00 | DRG 291 ==
LOC: ANHED 12:10 → ANH3MEDSUR 14:30 → ANHIMU 04-27 13:07 → ANH3MED 05-02 10:31 → ANHIMU 05-10 12:59
PROVIDERS: Emergency Medicine; Family Medicine; Internal Medicine; Nurse Practitioner Adult Health; Physician Assistant; Admitting Provider Family Medicine; Emergency Provider Emergency Medicine; PCP Internal Medicine; Visit Provider Physician Assistant
DX: I11.0 Hypertensive heart disease with heart failure (principal); J96.21 Acute and chronic respiratory failure with hypoxia; I38 Endocarditis, valve unspecified; E87.3 Alkalosis; J44.1 Chronic obstructive pulmonary disease with (acute) exacerbation; I50.33 Acute on chronic diastolic (congestive) heart failure; Z20.828 Contact with and (suspected) exposure to other viral communicable diseases; E11.65 Type 2 diabetes mellitus with hyperglycemia; E87.6 Hypokalemia; T50.2X5A Adverse effect of carbonic-anhydrase inhibitors, benzothiadiazides and other diuretics, initial encounter; I48.0 Paroxysmal atrial fibrillation; G47.33 Obstructive sleep apnea (adult) (pediatric); F41.9 Anxiety disorder, unspecified; E03.9 Hypothyroidism, unspecified; K59.00 Constipation, unspecified; K21.9 Gastro-esophageal reflux disease without esophagitis; I25.10 Atherosclerotic heart disease of native coronary artery without angina pectoris; M81.0 Age-related osteoporosis without current pathological fracture; Z99.81 Dependence on supplemental oxygen; Z95.0 Presence of cardiac pacemaker; Z87.891 Personal history of nicotine dependence
CPT/HCPCS: 36415; 36600; 51701; 71045; 71046; 71260; 80048; 80053; 81003; 82010; 82375; 82805; 83036; 83050; 83735; 83880; 84132; 84443; 84484; 85025; 85027; 87040; 87635; 93005; 94002; 94003; 94640; 94667; 94668; 96365; 96368; 96375; 96376; 97110; 97161; 97165; 97530; 97535; 99285; A9270; C9803; G0378; J0290; J0696; J1120; J1815; J1940; J2060; J2930; J3475; J3480; J7512; Q9967; U0003

== ENCOUNTER 2020-05-12 22:35 | Inpatient (IN) | payer MEDICARE, SELFPAY ==
--- NOTE | ~2020-05-12 | XR_ITS ---
EXAMINATION: XR chest 1V portable INDICATION: Cough TECHNIQUE: Portable AP chest at 2322 hours COMPARISON: 05/05/2020 FINDINGS: There are diffuse interstitial and airspace opacities with interval worsening. No pleural e ffusion or pneumothorax is identified. There is stable cardiomegaly. A triple lead cardiac pacemaker of the left chest wall ends with leads in expected locations. There are changes of prior aortic valve repair. IMPRESSION: 1. Diffuse interstitial and airspace opacities with interval worsening, consistent with pulmonary [place] or less likely pneumonia. Reviewed, dictated and finalized at location A. IMPRESSION: 1. Diffuse interstitial and airspace opacities with interval worsening, consist ent with pulmonary edema or less likely pneumonia.
--- NOTE | ~2020-05-12 | XR_ITS ---
EXAMINATION: XR chest 1V portable DATE: 05/22/2020 09:58 INDICATION: Shortness of breath. TECHNIQUE: A single frontal view of the chest was obtained. COMPARISON: Chest single view 05/17/2020, chest CT 04/30/2020 FINDINGS: There is a diffuse interstitial pattern in the lungs. There are mild airspace opacities in left midlung zone. There is mild scarring at the lung apices. No pleural effusion or pneumothorax. Th e heart size is normal. There are changes of mitral valve replacement. There is a left chest wall pac er with leads in the right atrium and right ventricle. IMPRESSION: 1. Diffuse lung disease, likely mild pulmonary edema. Reviewed, dictated and finalized at location A.
--- NOTE | ~2020-05-12 | XR_ITS ---
EXAMINATION: XR chest 1V portable DATE: 05/17/2020 05:44 INDICATION: Pulmonary edema. TECHNIQUE: A single frontal view of the chest was obtained. COMPARISON: Chest single view 05/12/2020, chest CT 04/30/2020 FINDINGS: The lung volumes are increased. There are interstitial airspace opacities in all lung zones bilaterally. No pleural effusion or pneumothorax. The heart size is normal. There are changes of maria ines ral valve replacement. There is a left chest wall pacer with leads in the right atrium, right ventric le, and coronary sinus. A right upper extremity peripherally inserted central venous catheter (PICC) is seen with tip in the superior vena cava. IMPRESSION: 1. Stable diffuse lung disease, consistent with pulmonary edema versus pneumonia. Reviewed, dictated and finalized at location A. IMPRESSION: 1. Stable diffuse lung disease, consistent with pulmonary edema versus pneumoni a.
[2020-05-12 22:44] VITALS: BP 137/79; PULSE 89; RESP 25; TEMP 36.8; O2SAT 97
--- NOTE | 2020-05-12 23:09 | ED.RECABL ---
HPI - Recheck/Abnormal Lab/Rx General Chief Complaint: Recheck/Abnormal Lab/Rx Stated Complaint: elevated wbc Time Seen by Provider: 05/12/20 22:41 Source: RN notes reviewed History of Present Illness HPI narrative: Patient presents emergency department from [facility] for elevated white blood cell count. The patient had blood work today showing a white blood cell count of 17 and was sent to the ER for further evaluation the patient was just in the hospital and discharged for endocarditis currently has a PICC line and receiving daily IV antibiotics. Patient denies any fevers or chills chest pain shortness of breath abdominal pain nausea vomiting or any other symptoms. States she has been taking her antibiotics as prescribed. Of note the patient is on a steroid taper for her COPD patient is chronically on nasal cannula for oxygen Related Data Home Medications Medication Instructions Recorded Confirmed Eliquis 2.5 mg PO BID 04/07/20 04/26/20 Glucagon (HCl) Emergency Kit 1 mg SUBCUT Q20M PRN 04/07/20 04/26/20 Humulin R Regular U-100 Insuln See Rx Instructions .ROUTE .COMPLEX 04/07/20 04/27/20 acetaminophen 650 mg PO Q4-6H PRN 04/07/20 04/26/20 acidophilus-pectin, citrus 2 cap PO BID 04/07/20 04/26/20 [Acidophilus Probiotic] albuterol sulfate 2 puff INHALATION Q4H PRN 04/07/20 04/26/20 alum-mag hydroxide-simeth 30 ml PO Q8-10H PRN 04/07/20 04/26/20 amiodarone 200 mg PO BID 04/07/20 04/26/20 diltiazem HCl 240 mg PO DAILY 04/07/20 04/26/20 ipratropium-albuterol 3 ml INHALATION Q6H 04/07/20 04/26/20 levothyroxine 75 mcg PO DAILY 04/07/20 04/26/20 metoprolol tartrate 25 mg PO BID 04/07/20 04/26/20 nitroglycerin 0.4 mg SUBLINGUAL Q5MIN PRN 04/07/20 04/26/20 sennosides [Senna Lax] 17.2 mg PO HS PRN 04/07/20 04/26/20 tramadol 50 mg PO Q8H PRN 04/07/20 04/26/20 Ativan 0.5 mg PO Q12-24H PRN 04/26/20 04/26/20 fluticasone propionate [Flonase 2 spray INTRANASAL DAILY 04/28/20 04/28/20 Allergy Relief] guaifenesin 1,200 mg PO BID 04/28/20 04/28/20 potassium chloride 20 meq PO DAILY 04/28/20 04/28/20 Allergies Allergy/AdvReac Type Severity Reaction Status Date / Time sulfamethoxazole Allergy Mild Unknown Verified 04/26/20 11:28 trimethoprim Allergy Mild Unknown Verified 04/26/20 11:28 cefazolin Allergy Unknown Unknown Verified 04/26/20 11:28 lisinopril Allergy Unknown Unknown Verified 04/26/20 11:28 metformin Allergy Unknown Unknown Verified 04/26/20 11:28 Contrast Media AdvReac Unknown NAUSEA Uncoded 04/26/20 11:28 Review of Systems Review of Systems: Narrative: Gen.: Denies fevers or chills ENT: Denies congestion Respiratory: Reports chronic shortness of breath CV: Denies chest pain or palpitations GI: Denies abdominal pain nausea, emesis or diarrhea denies burning, urgency, frequency or hematuria Musculoskeletal: Denies back pain or muscle pain Neuro: Denies numbness, tingling, weakness or focal weakness Skin: Denies rash Except as documented, all other systems reviewed and negative [facility] Past Medical History Medical History (Updated 05/13/20 @ 04:37 by Sammy Mendoza DO) Anxiety Bacteremia due to Enterococcus (~04/2020) Chronic obstructive pulmonary disease Chronic respiratory failure with hypoxia, on home oxygen therapy On 3 L nasal cannula. Diastolic congestive heart failure MAYNOR on 04/07/2020 showed a normal left ventricular size and function with ejection fraction estimated at 60 to 65%, mildly increased left ventricular wall thickness, abnormal diastolic function, severe biatrial enlargement, mild stenosis of annuloplasty ring prostatic mitral valve with mild regurgitation, moderate to severe tricuspid regurgitation with a moderate-size vegetation on the tricuspid valve, and moderate pulmonary hypertension. 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 Essential hypertension Fracture of right hip (~03/2020) Hospitalized at [facility]. Non operative treatment. Gastroesophageal reflux disease Hypothyroidism
[2020-05-12 23:54] VITALS: PULSE 86; RESP 24
[2020-05-12 23:54] LABS: Basophils Absolute Auto 0.1 K/mm3 (0.0-0.1); Basophils Percent Auto 0.3 % (0.2-1.2); Hematocrit 27.9 % (37.0-47.0); Hemoglobin 8.7 g/dL (12.0-15.0); Immature Granulocyte Absolute 0.83 K/mm3 (0.00-0.031); Immature Granulocyte Percent A 5.2 % (0-0.5); Lymphocytes Percent Auto 4.4 % (18.3-44.2); Mean Corpuscular HGB Conc 31.2 g/dl (32-36); Mean Corpuscular Hemoglobin 29.5 pg (26-34); Mean Corpuscular Volume 94.6 fl (80-100); Mean Platelet Volume 12.2 fl (7.4-10.4); Monocytes Percent Auto 6.5 % (2.6-8.5); Neutrophils Absolute Auto 13.2 K/mm3 (1.3-6.7); Neutrophils Percent Auto 83.6 % (45.5-73.1); Platelet Count Result 271 k/mm3 (150-375); Red Blood Count 2.95 M/mm3 (4.2-5.4); Red Cell Distribution Width 16.6 % (11.5-14.5); White Blood Count 15.8 K/mm3 (4.5-10.0)
[2020-05-12] MEDS: ALBUTEROL SULFATE NEB 2.5 MG/0.5 ML INH 5 MG INHALATION (23:59)
[2020-05-12] MEDS: IPRATROPIUM BR 0.02% INH SOLN 0.5 MG/2.5 ML VIAL INHALATION (23:59)
[2020-05-13] VITALS (15 sets, daily range): BP systolic 117–151; BP diastolic 47–80; PULSE 83–103; RESP 17–32; TEMP 36.7–37.1; O2SAT 95–100; BMI 38.5
[2020-05-13 00:07] LABS: Lactic Acid Reflex 3.6 mmol/L (0.7-2.1)
[2020-05-13 00:12] LABS: Albumin Level 2.8 g/dL (3.5-5.1); Alkaline Phosphatase 123 U/L (38-126); Anion Gap 7 mmol/L (8-16); Aspartate Amino Transferase 90 U/L (14-36); Bilirubin,Total 0.4 mg/dL (0.2-1.3); Blood Urea Nitrogen 22 mg/dL (7-17); Calcium 7.9 mg/dL (8.4-10.2); Carbon Dioxide 32 mmol/L (22-30); Chloride 97 mmol/L (98-107); Estimated Glomerular Filt Rate 48; Glucose 338 mg/dL (65-105); Potassium 3.5 mmol/L (3.4-5.0); Sodium 136 mmol/L (137-145)
[2020-05-13 00:15] LABS: Alanine Aminotransferase 73 U/L (4-35)
--- NOTE | 2020-05-13 00:36 | ECG_ITS ---
Measurements Intervals [place] Rate: 57 P: 38 MI: 124 QRS: 35 QRSD: 134 T: 15 QT: 433 QTc: 424 Interpretive Statements ELECTRONIC ATRIAL PACEMAKER WITH INHIBITION ELECTRONIC VENTRICULAR PACEMAKER WITH INHIBITION BASELINE ARTIFACT- I, III, AVR, AVL, AVF NO FURTHER INTERPRETATION IS POSSIBLE ATYPICAL ECG Electronically Signed On 05-13-2020 7:28:59 CDT by Prasad Ohara D.O.
[2020-05-13 02:50] LABS: Reflex Lactic Acid Yes or No Add Lactic
[2020-05-13 04:32] LABS: Glucose Point of Care 272 (65-105)
[2020-05-13] MEDS: SODIUM CHLORIDE 0.9% IV 1,000 ML 500 ML (04:37)
[2020-05-13 04:50] LABS: Add Urine Microscopic? YES; Appearance Urine Clear (Clear); Bilirubin Urine Negative (Negative); Blood Urine Negative (Negative); Budding Yeast Urine Present /hpf; Color Urine Yellow (Yellow); Glucose Urine UA 3+ mg/dL (Negative); Ketones Urine Negative (Negative); Leukocyte Esterase Ur Negative LEU/UL (NEGATIVE); Mucus Urine Rare /lpf; Nitrate Urine Negative (Negative); Protein Urine 1+ mg/dL (Negative); Specific Grav Ur 1.025 (1.001-1.035); Squamous Epithelial Cell Urine Rare /hpf (Few); Urobilinogen Urine Negative mg/dL (<2.0); WBC Urine 0-3 /hpf (0-3)
[2020-05-13 05:08] LABS: NT Pro B Type Natriuretic Pept 4760 PG/ML (5-100)
--- NOTE | 2020-05-13 05:58 | ADMGEN ---
This patient, Renu Harvey, was admitted to 2 Medical Room 244-. Patient/family oriented to hospital policies and general routines including ID bracelet, bed and alarms, visiting hours, pain management, procedures, bathroom and other care routines, personal items, smoking policy, room service/diet, and visiting hours. Valuables list has been completed. Information on how to activate the Rapid Response Team has been discussed. Patient/Family are encouraged to report perceived risks to care and to ask questions if they do not understand what they are told or what they should do.
[2020-05-13] MEDS: SODIUM CHLORIDE 0.9% IV 1,000 ML 80 ML IV CONT (06:30)
[2020-05-13] MEDS: ALBUTEROL SULFATE NEB 2.5 MG/0.5 ML INH 5 MG INHALATION ×3 (08:25→20:20)
[2020-05-13] MEDS: IPRATROPIUM BR 0.02% INH SOLN 0.5 MG/2.5 ML VIAL INHALATION ×3 (08:25→20:20)
[2020-05-13 08:40] LABS: Lactic Acid 2.3 mmol/L (0.7-2.1)
[2020-05-13] MEDS: LORazepam (*CRX) 0.5 MG TABLET PO ×2 (08:51→20:49)
[2020-05-13 11:27] LABS: Glucose Point of Care 138 (65-105)
--- NOTE | 2020-05-13 12:08 | PC.NURSE ---
Patient will not let me change her PICC line dressing at this point. She states she is too short of breath, will try again later.
[2020-05-13 13:20] LABS: Alveolar/Arterial O2 Gradient 148.8 mmHg; Base Excess ABG 3.4 mEq/l (+/-2.0); Device NASAL CANNULA; Fractional Inspired Oxygen 36 %; HCO3 ABG 27.4 mEq/l (22.0-26.0); Modified Allen's Test Pass; Oxygen Content ABG 12.9 %vol (16.0-22.0); Oxygen Saturation ABG 93.1 % (95.0-100.0); Oxyhemoglobin 90.2 % THb (90.0-100.0); PCO2 ABG 39.2 mmHg (35.0-45.0); PO2 ABG 62.4 mmHg (80.0-100.0); PO2 FiO2 Ratio Arterial Blood 1.73 %; Site Drawn RIGHT RADIAL; Total Hemoglobin 10.1 g/dL (12.0-18.0); pH ABG 7.462 (7.350-7.450)
[2020-05-13] MEDS: BUMETANIDE INJ 1 MG/4 ML VIAL IV PUSH (13:55)
[2020-05-13] MEDS: CENTRAL LINE FLUSH 10 ML IV PUSH ×2 (13:56→20:52)
[2020-05-13 16:16] LABS: Glucose Point of Care 160 (65-105)
[2020-05-13] MEDS: FLUTICASONE PROPIONATE 0.05% NA SPR 16 GM BTL (*BKC) 2 SPRAY NASAL (17:18)
--- NOTE | 2020-05-13 17:18 | PM.IMHP ---
H&P: HPI History of Present Illness Date/Time: 05/13/20 17:18 Chief complaint: Leukocytosis/lactic acidosis Narrative: Renu Harvey is a 84-year-old female multiple medical problems including chronic respiratory failure, COPD, Obstructive sleep apnea, congestive heart failure, paroxysmal atrial fibrillation, type 2 diabetes mellitus, and several other comorbidities admitted for evaluation of shortness of breath. Pt had a recent diagnosis with CHF exacerbation and COPD excerbation. Prior to that pt as admitted for catheter associated urinary tract infection but was also found to have bacteremia, with blood cultures growing Enterococcus faecalis. MAYNOR revealed endocarditis so pt was discharged on antibiotics for 6 weeks to include ampicillin and ceftriaxone. Pt admitted again with SOB associated with leg edema. No chest pain, no cough, no fever. Review of Systems Review of Systems: All systems reviewed & are unremarkable except as noted in HPI and below Constitutional: Constitutional: Denies fever(s) Cardiovascular: Cardiovascular: Denies chest pain and Reports dyspnea Respiratory: Respiratory: Reports dyspnea Musculoskeletal: Comments: Bilateral leg edema Neurologic: Denies confusion Psychiatric: Psychiatric: Reports anxiety PMFSH Past Medical History Medical History Anxiety Bacteremia due to Enterococcus (~04/2020) Chronic obstructive pulmonary disease Chronic respiratory failure with hypoxia, on home oxygen therapy On 3 L nasal cannula. Diastolic congestive heart failure MAYNOR on 04/07/2020 showed a normal left ventricular size and function with ejection fraction estimated at 60 to 65%, mildly increased left ventricular wall thickness, abnormal diastolic function, severe biatrial enlargement, mild stenosis of annuloplasty ring prostatic mitral valve with mild regurgitation, moderate to severe tricuspid regurgitation with a moderate-size vegetation on the tricuspid valve, and moderate pulmonary hypertension. 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 Essential hypertension Fracture of right hip (~03/2020) Hospitalized at [facility]. Non operative treatment. Gastroesophageal reflux disease Hypothyroidism Moderate pulmonary arterial systolic hypertension Noted on MAYNOR 04/07/2020 with an estimated pulmonary arterial systolic pressure of 54 mmHg. Obstructive sleep apnea on CPAP Osteoporosis Paroxysmal atrial fibrillation On apixaban for stroke prophylaxis. 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 Type 2 diabetes mellitus Valvular heart disease Status post mitral valve annuloplasty. Surgical History Surgical History History of pacemaker Status post mitral valve annuloplasty Family History Family History Mother Dementia Father Kidney disease Social History Social History Social History: Surrogate decision maker: Ryan Garza, deon. Code status: Full code. Smoking status: Former smoker Alcohol intake: never Substance use: never Substance use type: does not use Additional living arrangements comments: Currently undergoing rehab at [facility]. Gender identity (if verbalized by the patient): Female Spiritual care concerns: No Meds Home Medications and Allergies Home Medications Medication Instructions Recorded Confirmed Type Eliquis 2.5 mg PO BID 04/07/20 05/13/20 History Glucagon (HCl) Emergency Kit 1 mg SUBCUT Q20M PRN 04/07/20 05/13/20 History Humulin R Regular U-100 Insuln See Rx Instructions .ROUTE .COMPLEX 04/07/20 05/13/20 History acetaminophen 650 mg PO Q6H PRN 04/07/20 05/13/20 History acidophilus-pectin, citrus 2 cap PO BID 04/07/20 05/13/20 History [Acidophilus Probiotic] albuterol sulfate 2
[2020-05-13] MEDS: ACIDOPHILUS/BULGARICUS CHEWABLE TABLET 2 TABLET PO (17:20)
[2020-05-13] MEDS: METOPROLOL TARTRATE 25 MG TABLET PO (20:49)
[2020-05-13] MEDS: POTASSIUM CITRATE 5 MEQ TAB CR 40 MEQ PO (20:49)
[2020-05-13] MEDS: AMIODARONE HCL 200 MG TABLET PO (20:49)
[2020-05-13] MEDS: guaiFENesin 12 HR 600 MG TABCR 1200 MG PO (20:50)
[2020-05-13] MEDS: APIXABAN 2.5 MG TABLET PO (20:50)
[2020-05-13] MEDS: AMPICILLIN 1 GM/NS 50 ML 1 GM/50 ML BAG IVPB (20:51)
[2020-05-13] MEDS: methylPREDNISolone SOD SUCC 40 MG VIAL 20 MG IV PUSH (20:52)
[2020-05-13] MEDS: INSULIN GLARGINE (*BKC) 100 UNITS/ML 15 UNITS SUB-Q (21:14)
[2020-05-13 22:12] LABS: Glucose Point of Care 229 (65-105)
[2020-05-14] VITALS (20 sets, daily range): BP systolic 97–128; BP diastolic 46–62; PULSE 76–101; RESP 18–33; TEMP 36.4–37; O2SAT 94–100
[2020-05-14] MEDS: IPRATROPIUM BR 0.02% INH SOLN 0.5 MG/2.5 ML VIAL INHALATION ×4 (01:46→19:51)
[2020-05-14] MEDS: ALBUTEROL SULFATE NEB 2.5 MG/0.5 ML INH 5 MG INHALATION ×4 (01:46→19:51)
[2020-05-14] MEDS: AMPICILLIN 1 GM/NS 50 ML 1 GM/50 ML BAG IVPB ×6 (01:53→21:06)
[2020-05-14] MEDS: LEVOTHYROXINE SODIUM 75 MCG TABLET PO (05:55)
[2020-05-14] MEDS: CENTRAL LINE FLUSH 10 ML IV PUSH ×3 (05:55→21:08)
[2020-05-14 07:37] LABS: Glucose Point of Care 193 (65-105)
[2020-05-14] MEDS: APIXABAN 2.5 MG TABLET PO ×2 (09:29→21:07)
[2020-05-14] MEDS: METOPROLOL TARTRATE 25 MG TABLET PO ×2 (09:29→21:07)
[2020-05-14] MEDS: POTASSIUM CITRATE 5 MEQ TAB CR 40 MEQ PO ×2 (09:30→21:08)
[2020-05-14] MEDS: guaiFENesin 12 HR 600 MG TABCR 1200 MG PO ×2 (09:30→21:07)
[2020-05-14] MEDS: AMIODARONE HCL 200 MG TABLET PO ×2 (09:30→21:07)
[2020-05-14] MEDS: methylPREDNISolone SOD SUCC 40 MG VIAL 20 MG IV PUSH ×2 (09:30→17:35)
[2020-05-14] MEDS: ACIDOPHILUS/BULGARICUS CHEWABLE TABLET 2 TABLET PO ×2 (09:30→17:36)
[2020-05-14] MEDS: FLUTICASONE PROPIONATE 0.05% NA SPR 16 GM BTL (*BKC) 2 SPRAY NASAL ×2 (09:31→17:36)
[2020-05-14] MEDS: BUMETANIDE INJ 1 MG/4 ML VIAL IV PUSH ×2 (09:31→17:36)
--- NOTE | 2020-05-14 10:03 | PM.IMPN ---
Progress Note: A&P Assessment and Plan (1) Anxiety: Code(s): F41.9 - Anxiety disorder, unspecified Status: Acute Assessment and Plan: Ativan as scheduled pt is not anxious today (2) Endocarditis: Onset Date: ~04/2020 Code(s): I38 - Endocarditis, valve unspecified Status: Acute Assessment and Plan: Continue IV ampiciilin and iv rocephin pt needs to continue on her 6 week dose, bc is pending (3) CHF exacerbation: Code(s): I50.9 - Heart failure, unspecified Status: Acute Assessment and Plan: Continue diuresis with Bumex, CXr shows pulmonary edema (4) Chronic respiratory failure with hypoxia, on home oxygen therapy: Code(s): J96.11 - Chronic respiratory failure with hypoxia; Z99.81 - Dependence on supplemental oxygen Status: Acute Assessment and Plan: Continue oxygen at 4 liters (5) Chronic obstructive pulmonary disease: Code(s): J44.9 - Chronic obstructive pulmonary disease, unspecified Status: Chronic Assessment and Plan: Pt is on breathing treatment I will add Iv steroids small dose (6) Leukocytosis: Code(s): D72.829 - Elevated white blood cell count, unspecified Status: Acute Assessment and Plan: ? Secondary to endocarditis ? secondary to steroids in the past (7) Elevated ALT measurement: Code(s): R74.01 - Elevation of levels of liver transaminase levels Status: Acute Assessment and Plan: possible secondary to liver congestion (8) Anemia, chronic disease: Code(s): D63.8 - Anemia in other chronic diseases classified elsewhere Status: Acute Assessment and Plan: Hb is 8.7 Subjective Date/time seen: 05/14/20 10:03 Interval history: Harvey is a 84-year-old female multiple medical problems including chronic respiratory failure, COPD, Obstructive sleep apnea, congestive heart failure, paroxysmal atrial fibrillation, type 2 diabetes mellitus, and several other comorbidities admitted for evaluation of shortness of breath. Pt admitted again with SOB associated with leg edema. Looks like she is in heart failure again. Pt appears much better today less SOB less anxious stable on 4 liters of oxygen. Review of Systems Review of Systems: All systems reviewed & are unremarkable except as noted in HPI and below Constitutional: Constitutional: Denies fever(s) Cardiovascular: Cardiovascular: Denies chest pain and Reports dyspnea Respiratory: Respiratory: Reports dyspnea Neurologic: Denies confusion Psychiatric: Psychiatric: Reports anxiety and Denies confusion Exam Const: General: comfortable and no acute distress HENMT: Head: normocephalic Eyes: General: appearance normal, both eyes and all related structures Pupils: Equal, round and reactive pupils present Neck: Neck: supple Chest: Chest palpation & inspection: normal inspection of the chest Resp: Auscultation: crackles and diminished lung sounds Cardio: Jugular venous distension: no JVD Rhythm: regular rhythm Heart sounds: S1 normal heart sound present and S2 normal heart sound present GI: Inspection: normal to inspection Auscultation: normal bowel sounds Skin: General skin exam: normal color and dry skin Neuro: General: No confusion Cranial nerves: Yes CN's II-XII intact bilaterally and Yes Equal, round and reactive pupils present Cognition (Neuro): normal cognition Speech: normal speech Motor exam (neuro): 5/5 motor strength present throughout Extrem: General: pedal edema and other (2+ bilateral edema of ankles ) Psych: Appearance: grossly normal Mental Status: mental status grossly normal Objective Data Vital Signs Vital Signs: Vital Signs - 24 hr 05/13/20 12:00 05/13/20 14:00 05/13/20 14:20 Temperature 36.7 C Pulse Rate 95 99 83 Respiratory Rate 22 H 20 Blood Pressure 144/79 H Pulse Oximetry 95 05/13/20 14:30 05/13/20 16:00 05/13/20 20:00 Temperature
[2020-05-14 11:31] LABS: Glucose Point of Care 284 (65-105)
[2020-05-14] MEDS: INSULIN ASPART (*BKC) 100 UNITS/ML SUB-Q (11:38)
[2020-05-14] MEDS: CENTRAL LINE FLUSH 20 ML IV PUSH (15:59)
[2020-05-14 16:10] LABS: Hemoglobin 8.4 g/dL (12.0-15.0); Mean Corpuscular HGB Conc 31.1 g/dl (32-36); Mean Corpuscular Hemoglobin 29.3 pg (26-34); Mean Corpuscular Volume 94.1 fl (80-100); Mean Platelet Volume 12.1 fl (7.4-10.4); Platelet Count Result 254 k/mm3 (150-375); Red Blood Count 2.87 M/mm3 (4.2-5.4); Red Cell Distribution Width 17.1 % (11.5-14.5); White Blood Count 17.9 K/mm3 (4.5-10.0)
[2020-05-14 16:18] LABS: Anion Gap 2 mmol/L (8-16); Blood Urea Nitrogen 20 mg/dL (7-17); Calcium 8.2 mg/dL (8.4-10.2); Carbon Dioxide 37 mmol/L (22-30); Chloride 100 mmol/L (98-107); Estimated Glomerular Filt Rate 53; Glucose 161 mg/dL (65-105); Potassium 4.7 mmol/L (3.4-5.0); Sodium 139 mmol/L (137-145)
[2020-05-14 17:29] LABS: Glucose Point of Care 174 (65-105)
[2020-05-14] MEDS: LORazepam (*CRX) 0.5 MG TABLET PO (17:42)
[2020-05-14] MEDS: INSULIN GLARGINE (*BKC) 100 UNITS/ML 15 UNITS SUB-Q (22:32)
[2020-05-14] MEDS: INSULIN ASPART (*BKC) 100 UNITS/ML 6 UNITS SUB-Q (22:33)
[2020-05-14 23:16] LABS: Glucose Point of Care 440 (65-105)
[2020-05-14] MEDS: ALBUTEROL SULFATE (*SP) AEROSOL 1 PUFF 2 PUFF INHALATION (23:34)
[2020-05-15] VITALS (20 sets, daily range): BP systolic 96–133; BP diastolic 56–66; PULSE 77–106; RESP 16–22; TEMP 36.7–36.8; O2SAT 96–100
[2020-05-15] MEDS: LORazepam (*CRX) 0.5 MG TABLET PO (00:37)
[2020-05-15] MEDS: AMPICILLIN 1 GM/NS 50 ML 1 GM/50 ML BAG IVPB ×6 (00:37→21:02)
[2020-05-15] MEDS: ALBUTEROL SULFATE NEB 2.5 MG/0.5 ML INH 5 MG INHALATION ×4 (01:24→20:51)
[2020-05-15] MEDS: IPRATROPIUM BR 0.02% INH SOLN 0.5 MG/2.5 ML VIAL INHALATION ×4 (01:25→20:51)
[2020-05-15] MEDS: traMADol HCL (*CRX) 50 MG TABLET PO (02:47)
[2020-05-15] MEDS: CENTRAL LINE FLUSH 10 ML IV PUSH ×3 (05:20→21:07)
[2020-05-15] MEDS: LEVOTHYROXINE SODIUM 75 MCG TABLET PO (06:01)
[2020-05-15 06:11] LABS: Hematocrit 25.5 % (37.0-47.0); Hemoglobin 7.9 g/dL (12.0-15.0); Mean Corpuscular Volume 93.8 fl (80-100); Mean Platelet Volume 11.6 fl (7.4-10.4); Platelet Count Result 228 k/mm3 (150-375); Red Blood Count 2.72 M/mm3 (4.2-5.4); White Blood Count 19.4 K/mm3 (4.5-10.0)
[2020-05-15 06:40] LABS: Anion Gap 2 mmol/L (8-16); Blood Urea Nitrogen 22 mg/dL (7-17); Calcium 8.1 mg/dL (8.4-10.2); Carbon Dioxide 37 mmol/L (22-30); Chloride 101 mmol/L (98-107); Estimated Glomerular Filt Rate 60; Glucose 254 mg/dL (65-105); Potassium 4.7 mmol/L (3.4-5.0); Sodium 140 mmol/L (137-145)
[2020-05-15 08:06] LABS: Glucose Point of Care 202 (65-105)
[2020-05-15] MEDS: methylPREDNISolone SOD SUCC 40 MG VIAL 20 MG IV PUSH (09:07)
[2020-05-15] MEDS: BUMETANIDE INJ 1 MG/4 ML VIAL IV PUSH ×2 (09:07→17:44)
[2020-05-15] MEDS: FLUTICASONE PROPIONATE 0.05% NA SPR 16 GM BTL (*BKC) 2 SPRAY NASAL ×2 (09:07→17:44)
[2020-05-15] MEDS: APIXABAN 2.5 MG TABLET PO ×2 (09:08→21:04)
[2020-05-15] MEDS: ACIDOPHILUS/BULGARICUS CHEWABLE TABLET 2 TABLET PO ×2 (09:08→17:44)
[2020-05-15] MEDS: POTASSIUM CITRATE 5 MEQ TAB CR 40 MEQ PO ×2 (09:08→21:05)
[2020-05-15] MEDS: METOPROLOL TARTRATE 25 MG TABLET PO ×2 (09:09→21:07)
[2020-05-15] MEDS: AMIODARONE HCL 200 MG TABLET PO ×2 (09:09→21:04)
[2020-05-15] MEDS: INSULIN ASPART (*BKC) 100 UNITS/ML SUB-Q ×2 (09:13→13:05)
--- NOTE | 2020-05-15 11:36 | PM.IMPN ---
Progress Note: A&P Assessment and Plan (1) Anxiety: Code(s): F41.9 - Anxiety disorder, unspecified Status: Acute Assessment and Plan: Ativan as scheduled pt is not anxious today, not able to sleep at night, I will add a sleeping aid (2) Endocarditis: Onset Date: ~04/2020 Code(s): I38 - Endocarditis, valve unspecified Status: Acute Assessment and Plan: Continue IV ampiciilin and iv rocephin pt needs to continue on her 6 week dose, bc is pending (3) CHF exacerbation: Code(s): I50.9 - Heart failure, unspecified Status: Acute Assessment and Plan: Continue diuresis with Bumex, CXr shows pulmonary edema (4) Chronic respiratory failure with hypoxia, on home oxygen therapy: Code(s): J96.11 - Chronic respiratory failure with hypoxia; Z99.81 - Dependence on supplemental oxygen Status: Acute Assessment and Plan: Continue oxygen at 4 liters (5) Chronic obstructive pulmonary disease: Code(s): J44.9 - Chronic obstructive pulmonary disease, unspecified Status: Chronic Assessment and Plan: Pt is on breathing treatment I will add Iv steroids small dose and wean off steroids (6) Leukocytosis: Code(s): D72.829 - Elevated white blood cell count, unspecified Status: Acute Assessment and Plan: ? Secondary to endocarditis ? secondary to steroids in the past, continuing to monitor. (7) Elevated ALT measurement: Code(s): R74.01 - Elevation of levels of liver transaminase levels Status: Acute Assessment and Plan: Possible secondary to liver congestion (8) Anemia, chronic disease: Code(s): D63.8 - Anemia in other chronic diseases classified elsewhere Status: Acute Assessment and Plan: Hb is 7.9 Subjective Date/time seen: 05/15/20 11:36 Interval history: Harvey is a 84-year-old female multiple medical problems including chronic respiratory failure, COPD, Obstructive sleep apnea, congestive heart failure, paroxysmal atrial fibrillation, type 2 diabetes mellitus, and several other comorbidities admitted for evaluation of shortness of breath. Pt admitted again with SOB associated with leg edema. Looks like she is in heart failure again. Pt appears much better today less SOB less anxious stable on 4 liters of oxygen. Review of Systems Review of Systems: All systems reviewed & are unremarkable except as noted in HPI and below Exam Const: General: comfortable and no acute distress; No confusion Orientation/consciousness: No confusion HENMT: Head: normocephalic Eyes: General: appearance normal, both eyes and all related structures Pupils: Equal, round and reactive pupils present Neck: Neck: supple Chest: Chest palpation & inspection: normal inspection of the chest Resp: Auscultation: crackles and diminished lung sounds Cardio: Jugular venous distension: no JVD Rhythm: regular rhythm Heart sounds: S1 normal heart sound present and S2 normal heart sound present GI: Inspection: normal to inspection Auscultation: normal bowel sounds Skin: General skin exam: normal color and dry skin Neuro: General: No confusion Cranial nerves: Yes CN's II-XII intact bilaterally and Yes Equal, round and reactive pupils present Cognition (Neuro): normal cognition Speech: normal speech Motor exam (neuro): 5/5 motor strength present throughout Extrem: General: pedal edema and other (2+ bilateral edema of ankles ) Psych: Appearance: grossly normal Mental Status: mental status grossly normal Objective Data Vital Signs Vital Signs: Vital Signs - 24 hr 05/14/20 12:00 05/14/20 13:26 05/14/20 14:00 Temperature 37.0 C Pulse Rate 81 87 90 Respiratory Rate 18 24 H Blood Pressure 97/57 L Pulse Oximetry 95 05/14/20 15:38 05/14/20 16:00 05/14/20 19:51 Temperature Pulse Rate 95 81 Respiratory Rate 20 Blood Pressure 119/62 Pulse Oximetry 94 05/14/20 20:00
[2020-05-15 12:33] LABS: Glucose Point of Care 234 (65-105)
[2020-05-15] MEDS: guaiFENesin 12 HR 600 MG TABCR 1200 MG PO ×2 (12:51→21:04)
[2020-05-15] MEDS: methylPREDNISolone (MEDROL) DOSEPACK 4 MG TABLETS PO ×3 (13:06→21:05)
[2020-05-15 14:20] LABS: SARS-CoV-2 RNA PCR Negative
[2020-05-15 17:13] LABS: Glucose Point of Care 177 (65-105)
[2020-05-15] MEDS: INSULIN GLARGINE (*BKC) 100 UNITS/ML 15 UNITS SUB-Q (21:13)
[2020-05-15 21:27] LABS: Glucose Point of Care 256 (65-105)
[2020-05-15] MEDS: ZOLPIDEM TARTRATE (*CRX) 2.5 MG TABLET PO (21:55)
[2020-05-16] VITALS (17 sets, daily range): BP systolic 99–123; BP diastolic 58–85; PULSE 75–118; RESP 18–28; TEMP 36.6–36.9; O2SAT 93–99
[2020-05-16] MEDS: AMPICILLIN 1 GM/NS 50 ML 1 GM/50 ML BAG IVPB ×6 (01:11→21:21)
[2020-05-16] MEDS: ALBUTEROL SULFATE NEB 2.5 MG/0.5 ML INH 5 MG INHALATION ×4 (02:03→20:10)
[2020-05-16] MEDS: IPRATROPIUM BR 0.02% INH SOLN 0.5 MG/2.5 ML VIAL INHALATION ×4 (02:03→20:11)
[2020-05-16] MEDS: methylPREDNISolone (MEDROL) DOSEPACK 4 MG TABLETS PO ×4 (05:38→21:07)
[2020-05-16] MEDS: LEVOTHYROXINE SODIUM 75 MCG TABLET PO (05:40)
[2020-05-16] MEDS: CENTRAL LINE FLUSH 10 ML IV PUSH ×3 (05:41→21:42)
[2020-05-16 05:58] LABS: Hematocrit 26.7 % (37.0-47.0); Hemoglobin 8.1 g/dL (12.0-15.0); Mean Corpuscular HGB Conc 30.3 g/dl (32-36); Mean Corpuscular Hemoglobin 29.3 pg (26-34); Mean Corpuscular Volume 96.7 fl (80-100); Mean Platelet Volume 12.1 fl (7.4-10.4); Platelet Count Result 208 k/mm3 (150-375); Red Blood Count 2.76 M/mm3 (4.2-5.4); Red Cell Distribution Width 17.2 % (11.5-14.5); White Blood Count 16.9 K/mm3 (4.5-10.0)
[2020-05-16 06:13] LABS: Anion Gap 0.99999 mmol/L (8-16); Blood Urea Nitrogen 21 mg/dL (7-17); Calcium 8.1 mg/dL (8.4-10.2); Carbon Dioxide > 40 mmol/L (22-30); Chloride 99 mmol/L (98-107); Estimated Glomerular Filt Rate 53; Glucose 260 mg/dL (65-105); Potassium 5.1 mmol/L (3.4-5.0); Sodium 140 mmol/L (137-145)
[2020-05-16 08:06] LABS: Glucose Point of Care 232 (65-105)
[2020-05-16] MEDS: INSULIN ASPART (*BKC) 100 UNITS/ML SUB-Q ×3 (08:35→17:34)
[2020-05-16] MEDS: POTASSIUM CITRATE 5 MEQ TAB CR 40 MEQ PO ×2 (08:36→20:58)
[2020-05-16] MEDS: guaiFENesin 12 HR 600 MG TABCR 1200 MG PO (08:37)
[2020-05-16] MEDS: BUMETANIDE INJ 1 MG/4 ML VIAL IV PUSH ×2 (08:37→17:36)
[2020-05-16] MEDS: METOPROLOL TARTRATE 25 MG TABLET PO ×2 (08:37→21:04)
[2020-05-16] MEDS: APIXABAN 2.5 MG TABLET PO ×2 (08:37→21:21)
[2020-05-16] MEDS: AMIODARONE HCL 200 MG TABLET PO ×2 (08:37→21:02)
[2020-05-16] MEDS: ACIDOPHILUS/BULGARICUS CHEWABLE TABLET 2 TABLET PO ×2 (08:37→17:36)
[2020-05-16] MEDS: FLUTICASONE PROPIONATE 0.05% NA SPR 16 GM BTL (*BKC) 2 SPRAY NASAL ×2 (08:41→17:36)
[2020-05-16] MEDS: LORazepam (*CRX) 0.5 MG TABLET PO (08:48)
[2020-05-16 12:05] LABS: Glucose Point of Care 252 (65-105)
--- NOTE | 2020-05-16 14:18 | PM.IMPN ---
Progress Note: A&P Assessment and Plan (1) Anxiety: Code(s): F41.9 - Anxiety disorder, unspecified Status: Acute Assessment and Plan: Ativan as scheduled pt is not anxious today. (2) Endocarditis: Onset Date: ~04/2020 Code(s): I38 - Endocarditis, valve unspecified Status: Acute Assessment and Plan: Continue IV ampiciilin and iv rocephin, pt needs to continue on her 6 week dose for endocarditis, possible cause for her vol overload, blood culture is negative to date (3) CHF exacerbation: Code(s): I50.9 - Heart failure, unspecified Status: Acute Assessment and Plan: Continue diuresis with Bumex, CXr shows pulmonary edema from 05/12 will rpt tomorrow. hopeful discharge in next 1-3 days time. (4) Chronic respiratory failure with hypoxia, on home oxygen therapy: Code(s): J96.11 - Chronic respiratory failure with hypoxia; Z99.81 - Dependence on supplemental oxygen Status: Acute Assessment and Plan: Continue oxygen at 4 liters (5) Chronic obstructive pulmonary disease: Code(s): J44.9 - Chronic obstructive pulmonary disease, unspecified Status: Chronic Assessment and Plan: Pt is on breathing treatment and oral steroids (6) Leukocytosis: Code(s): D72.829 - Elevated white blood cell count, unspecified Status: Acute Assessment and Plan: ? Secondary to endocarditis ? secondary to steroids in the past, continuing to monitor. (7) Elevated ALT measurement: Code(s): R74.01 - Elevation of levels of liver transaminase levels Status: Acute Assessment and Plan: Possible secondary to liver congestion (8) Anemia, chronic disease: Code(s): D63.8 - Anemia in other chronic diseases classified elsewhere Status: Acute Assessment and Plan: Hb is 8.1 Subjective Date/time seen: 05/16/20 14:18 Interval history: Harvey is a 84-year-old female multiple medical problems including chronic respiratory failure, COPD, Obstructive sleep apnea, congestive heart failure, paroxysmal atrial fibrillation, type 2 diabetes mellitus, and several other comorbidities admitted for evaluation of shortness of breath. Pt admitted again with SOB associated with leg edema. Looks like she is in heart failure again. Pt appears much better today less SOB stable on 4 liters of oxygen. Pt describes difficulty coughing up the phlegm and stats she feels thirsty all he time. Review of Systems Review of Systems: All systems reviewed & are unremarkable except as noted in HPI and below Exam Const: General: anxious and other (chronically ill ) HENMT: Head: normocephalic Eyes: General: appearance normal, both eyes and all related structures Pupils: Equal, round and reactive pupils present Neck: Neck: supple Chest: Chest palpation & inspection: normal inspection of the chest Resp: Auscultation: crackles and diminished lung sounds Cardio: Jugular venous distension: no JVD Rhythm: regular rhythm Heart sounds: S1 normal heart sound present and S2 normal heart sound present GI: Inspection: normal to inspection Auscultation: normal bowel sounds Skin: General skin exam: normal color and dry skin Neuro: General: No confusion Cranial nerves: Yes CN's II-XII intact bilaterally and Yes Equal, round and reactive pupils present Cognition (Neuro): normal cognition Speech: normal speech Motor exam (neuro): 5/5 motor strength present throughout Extrem: General: pedal edema and other (2+ bilateral edema of ankles ) Psych: Appearance: grossly normal Mental Status: mental status grossly normal Objective Data Vital Signs Vital Signs: Vital Signs - 24 hr 05/15/20 16:00 05/15/20 16:13 05/15/20 20:00 Temperature Pulse Rate 97 90 84 Respiratory Rate 18 Blood Pressure Pulse Oximetry 05/15/20 20:40 05/15/20 20:53 05/15/20 20:54 Temperature Pulse Rate 88 88 Respiratory Rate 18 18 Blood
[2020-05-16 14:30] LABS: Potassium 4.7 mmol/L (3.4-5.0)
[2020-05-16 17:34] LABS: Glucose Point of Care 221 (65-105)
[2020-05-16] MEDS: guaiFENesin 12 HR 600 MG TABCR PO (20:58)
[2020-05-16] MEDS: INSULIN GLARGINE (*BKC) 100 UNITS/ML 15 UNITS SUB-Q (21:41)
[2020-05-16] MEDS: ZOLPIDEM TARTRATE (*CRX) 2.5 MG TABLET PO (21:42)
[2020-05-16 23:17] LABS: Glucose Point of Care 362 (65-105)
[2020-05-17] VITALS (15 sets, daily range): BP systolic 102–120; BP diastolic 51–74; PULSE 72–99; RESP 18–21; TEMP 36.1–36.7; O2SAT 92–100
[2020-05-17] MEDS: AMPICILLIN 1 GM/NS 50 ML 1 GM/50 ML BAG IVPB ×6 (01:01→21:46)
[2020-05-17] MEDS: IPRATROPIUM BR 0.02% INH SOLN 0.5 MG/2.5 ML VIAL INHALATION ×4 (02:04→21:27)
[2020-05-17] MEDS: ALBUTEROL SULFATE NEB 2.5 MG/0.5 ML INH 5 MG INHALATION ×4 (02:04→21:26)
[2020-05-17] MEDS: CENTRAL LINE FLUSH 10 ML IV PUSH ×3 (05:13→21:46)
[2020-05-17] MEDS: LEVOTHYROXINE SODIUM 75 MCG TABLET PO (05:53)
[2020-05-17] MEDS: methylPREDNISolone (MEDROL) DOSEPACK 4 MG TABLETS PO ×4 (05:58→21:28)
[2020-05-17 06:39] LABS: Hematocrit 27.5 % (37.0-47.0); Hemoglobin 8.2 g/dL (12.0-15.0); Mean Corpuscular HGB Conc 29.8 g/dl (32-36); Mean Corpuscular Hemoglobin 28.3 pg (26-34); Mean Corpuscular Volume 94.8 fl (80-100); Mean Platelet Volume 12.2 fl (7.4-10.4); Platelet Count Result 205 k/mm3 (150-375); Red Cell Distribution Width 16.9 % (11.5-14.5); White Blood Count 16.4 K/mm3 (4.5-10.0)
[2020-05-17 06:58] LABS: Anion Gap 2 mmol/L (8-16); Blood Urea Nitrogen 22 mg/dL (7-17); Calcium 8.2 mg/dL (8.4-10.2); Carbon Dioxide 39 mmol/L (22-30); Chloride 97 mmol/L (98-107); Estimated Glomerular Filt Rate 48; Glucose 248 mg/dL (65-105); Potassium 4.9 mmol/L (3.4-5.0); Sodium 138 mmol/L (137-145)
[2020-05-17] MEDS: INSULIN ASPART (*BKC) 100 UNITS/ML SUB-Q ×3 (08:14→18:04)
[2020-05-17] MEDS: AMIODARONE HCL 200 MG TABLET PO ×2 (08:15→21:31)
[2020-05-17] MEDS: FLUTICASONE PROPIONATE 0.05% NA SPR 16 GM BTL (*BKC) 2 SPRAY NASAL ×2 (08:15→17:17)
[2020-05-17] MEDS: METOPROLOL TARTRATE 25 MG TABLET PO ×2 (08:16→21:32)
[2020-05-17] MEDS: ACIDOPHILUS/BULGARICUS CHEWABLE TABLET 2 TABLET PO ×2 (08:16→17:18)
[2020-05-17] MEDS: POTASSIUM CITRATE 5 MEQ TAB CR 40 MEQ PO ×2 (08:16→21:30)
[2020-05-17] MEDS: guaiFENesin 12 HR 600 MG TABCR PO ×2 (08:16→21:30)
[2020-05-17] MEDS: BUMETANIDE INJ 1 MG/4 ML VIAL IV PUSH ×2 (08:17→17:18)
[2020-05-17] MEDS: APIXABAN 2.5 MG TABLET PO ×2 (08:17→21:31)
[2020-05-17 08:48] LABS: Glucose Point of Care 210 (65-105)
[2020-05-17 12:12] LABS: Glucose Point of Care 391 (65-105)
[2020-05-17] MEDS: BUDESONIDE RESPULE NEB 0.5 MG/2 ML AMP INHALATION ×2 (13:09→21:27)
--- NOTE | 2020-05-17 15:52 | PM.IMPN ---
Progress Note: A&P Assessment and Plan (1) Anxiety: Code(s): F41.9 - Anxiety disorder, unspecified Status: Acute Assessment and Plan: Ativan as scheduled pt is not anxious today. 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 patient still sounds quite congested and her urine output is poor will increase the Bumex 2 mg IV b.i.d. from tomorrow in today will give 1 time Bumex 1 mg IV, will continue to monitor have PT OT evaluate the patient and further recommendation to follow. (2) Endocarditis: Onset Date: ~04/2020 Code(s): I38 - Endocarditis, valve unspecified Status: Acute Assessment and Plan: Continue IV ampiciilin and iv rocephin, pt needs to continue on her 6 week dose for endocarditis, possible cause for her vol overload, blood culture is negative to date (3) CHF exacerbation: Code(s): I50.9 - Heart failure, unspecified Status: Acute Assessment and Plan: Continue diuresis with Bumex, CXr shows pulmonary edema from 05/12 will rpt tomorrow. hopeful discharge in next 1-3 days time. (4) Chronic respiratory failure with hypoxia, on home oxygen therapy: Code(s): J96.11 - Chronic respiratory failure with hypoxia; Z99.81 - Dependence on supplemental oxygen Status: Acute Assessment and Plan: Continue oxygen at 4 liters (5) Chronic obstructive pulmonary disease: Code(s): J44.9 - Chronic obstructive pulmonary disease, unspecified Status: Chronic Assessment and Plan: Pt is on breathing treatment and oral steroids (6) Leukocytosis: Code(s): D72.829 - Elevated white blood cell count, unspecified Status: Acute Assessment and Plan: ? Secondary to endocarditis ? secondary to steroids in the past, continuing to monitor. 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 patient still sounds quite congested and her urine output is poor will increase the Bumex 2 mg IV b.i.d. from tomorrow in today will give 1 time Bumex 1 mg IV, will continue to monitor have PT OT evaluate the patient and further recommendation to follow. Review of Systems Review of Systems: All systems reviewed & are unremarkable except as noted in HPI and below Exam Narrative: Exam Narrative: moderately obese Patient is comfortable, NAD HEENT: eyes are clear and none icteric LUNGS: bilateral fair entry with rales and rhonchi HEART: RR S1S2 ABD: BS+, Soft and nontender Lower extremities: edema SKIN: nonjaundiced Neuro: grossly intact. Objective Data Vital Signs Vital Signs: Vital Signs - 24 hr 05/16/20 20:12 05/16/20 20:20 05/16/20 21:02 Temperature Pulse Rate 9
[2020-05-17 18:23] LABS: Glucose Point of Care 335 (65-105)
[2020-05-17] MEDS: INSULIN GLARGINE (*BKC) 100 UNITS/ML 15 UNITS SUB-Q (21:46)
[2020-05-17] MEDS: ZOLPIDEM TARTRATE (*CRX) 2.5 MG TABLET PO (22:16)
[2020-05-18] VITALS (16 sets, daily range): BP systolic 116–134; BP diastolic 52–58; PULSE 79–92; RESP 18–22; TEMP 36.8–37.2; O2SAT 93–99
[2020-05-18] MEDS: AMPICILLIN 1 GM/NS 50 ML 1 GM/50 ML BAG IVPB ×6 (01:55→21:22)
[2020-05-18] MEDS: IPRATROPIUM BR 0.02% INH SOLN 0.5 MG/2.5 ML VIAL INHALATION ×4 (03:07→20:14)
[2020-05-18] MEDS: ALBUTEROL SULFATE NEB 2.5 MG/0.5 ML INH 5 MG INHALATION ×4 (03:07→20:14)
[2020-05-18 03:53] LABS: Glucose Point of Care 367 (65-105)
[2020-05-18] MEDS: LORazepam (*CRX) 0.5 MG TABLET PO (04:42)
[2020-05-18] MEDS: CENTRAL LINE FLUSH 10 ML IV PUSH ×3 (05:21→21:31)
[2020-05-18 05:55] LABS: Hematocrit 25.9 % (37.0-47.0); Mean Corpuscular HGB Conc 30.9 g/dl (32-36); Mean Corpuscular Hemoglobin 29.3 pg (26-34); Mean Corpuscular Volume 94.9 fl (80-100); Mean Platelet Volume 12.5 fl (7.4-10.4); Platelet Count Result 177 k/mm3 (150-375); Red Blood Count 2.73 M/mm3 (4.2-5.4); Red Cell Distribution Width 16.5 % (11.5-14.5); White Blood Count 12.9 K/mm3 (4.5-10.0)
[2020-05-18 06:03] LABS: Anion Gap 3.99999 mmol/L (8-16); Blood Urea Nitrogen 23 mg/dL (7-17); Calcium 8.3 mg/dL (8.4-10.2); Carbon Dioxide > 40 mmol/L (22-30); Chloride 96 mmol/L (98-107); Estimated Glomerular Filt Rate 48; Glucose 291 mg/dL (65-105); Potassium 4.9 mmol/L (3.4-5.0); Sodium 140 mmol/L (137-145)
[2020-05-18] MEDS: methylPREDNISolone (MEDROL) DOSEPACK 4 MG TABLETS PO (06:09)
[2020-05-18] MEDS: LEVOTHYROXINE SODIUM 75 MCG TABLET PO (06:09)
[2020-05-18 07:57] LABS: Glucose Point of Care 226 (65-105)
[2020-05-18] MEDS: INSULIN ASPART (*BKC) 100 UNITS/ML SUB-Q ×3 (08:12→16:39)
[2020-05-18] MEDS: BUDESONIDE RESPULE NEB 0.5 MG/2 ML AMP INHALATION ×2 (08:30→20:14)
[2020-05-18] MEDS: METOPROLOL TARTRATE 25 MG TABLET PO ×2 (09:30→21:20)
[2020-05-18] MEDS: APIXABAN 2.5 MG TABLET PO ×2 (09:30→21:19)
[2020-05-18] MEDS: POTASSIUM CITRATE 5 MEQ TAB CR 40 MEQ PO ×2 (09:30→21:20)
[2020-05-18] MEDS: guaiFENesin 12 HR 600 MG TABCR PO ×2 (09:30→21:19)
[2020-05-18] MEDS: ACIDOPHILUS/BULGARICUS CHEWABLE TABLET 2 TABLET PO ×2 (09:30→16:42)
[2020-05-18] MEDS: AMIODARONE HCL 200 MG TABLET PO ×2 (09:30→21:18)
[2020-05-18] MEDS: FLUTICASONE PROPIONATE 0.05% NA SPR 16 GM BTL (*BKC) 2 SPRAY NASAL ×2 (09:31→16:42)
[2020-05-18] MEDS: BUMETANIDE INJ 2.5 MG/10 ML VIAL 2 MG IV PUSH ×2 (09:36→16:41)
[2020-05-18] MEDS: acetaZOLAMIDE TAB 250 MG TABLET PO (09:36)
--- NOTE | 2020-05-18 11:32 | PM.IMPN ---
Progress Note: A&P Assessment and Plan (1) Anxiety: Code(s): F41.9 - Anxiety disorder, unspecified Status: Acute Assessment and Plan: Ativan as scheduled pt is not anxious today. 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 patient was still sounds quite congested and her urine output was poor, increased the Bumex 2 mg IV b.i.d. and was give Bumex 1mg IV dose, Today 05/18 Patient still complains of being short of breath unable to expotorte phlegm, patient's lung sounds quite congested and has a harsh breath sounds, patient 3+ lower extremity edema, patient is incontinent unable to assess urine output, will continue Bumex 2 mg IV b.i.d., will give patient 1 time dose of Solu-Medrol 125 mg IV, continue updraft and add pulmozyme to help with wheezing and shortness of breath, will have a PT OT evaluate the patient and further recommendation to follow (2) Endocarditis: Onset Date: ~04/2020 Code(s): I38 - Endocarditis, valve unspecified Status: Acute Assessment and Plan: Continue IV ampiciilin and iv rocephin, pt needs to continue on her 6 week dose for endocarditis, possible cause for her vol overload, blood culture is negative to date (3) CHF exacerbation: Code(s): I50.9 - Heart failure, unspecified Status: Acute Assessment and Plan: Continue diuresis with Bumex, CXr shows pulmonary edema from 05/12 will rpt tomorrow. hopeful discharge in next 1-3 days time. (4) Chronic respiratory failure with hypoxia, on home oxygen therapy: Code(s): J96.11 - Chronic respiratory failure with hypoxia; Z99.81 - Dependence on supplemental oxygen Status: Acute Assessment and Plan: Continue oxygen at 4 liters (5) Chronic obstructive pulmonary disease: Code(s): J44.9 - Chronic obstructive pulmonary disease, unspecified Status: Chronic Assessment and Plan: Pt is on breathing treatment and oral steroids (6) Leukocytosis: Code(s): D72.829 - Elevated white blood cell count, unspecified Status: Acute Assessment and Plan: ? Secondary to endocarditis ? secondary to steroids in the past, continuing to monitor. 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 patient was still sounds quite congested and her urine output was poor, increased the Bumex 2 mg IV b.i.d. and was give Bumex 1mg IV dose, Today 05/18 Patient still complains of being short of breath unable to expotorte phlegm, patient's lung sounds quite congested and has a harsh breath sounds, patient 3+ lower extremity edema, patient is incontinent unable to assess urine output, will continue Bumex 2 mg IV b.
[2020-05-18 11:48] LABS: Glucose Point of Care 367 (65-105)
[2020-05-18] MEDS: methylPREDNISolone SOD SUCC 125 MG VIAL IV PUSH (11:49)
[2020-05-18 13:14] LABS: SARS-CoV-2 RNA PCR Negative
[2020-05-18 16:35] LABS: Glucose Point of Care 395 (65-105)
[2020-05-18] MEDS: DORNASE ALFA INH SOLN 1 MG/ML 2.5 ML AMP 2.5 MG INHALATION (20:14)
[2020-05-18 20:43] LABS: Glucose Point of Care 459 (65-105)
[2020-05-18] MEDS: INSULIN ASPART (*BKC) 100 UNITS/ML 10 UNITS SUB-Q (21:21)
[2020-05-18] MEDS: INSULIN GLARGINE (*BKC) 100 UNITS/ML 15 UNITS SUB-Q (21:22)
[2020-05-18 22:21] LABS: Glucose Point of Care 431 (65-105)
[2020-05-19] VITALS (15 sets, daily range): BP systolic 110–116; BP diastolic 54–63; PULSE 79–93; RESP 18–22; TEMP 36.1–37; O2SAT 96–100
[2020-05-19] MEDS: ZOLPIDEM TARTRATE (*CRX) 2.5 MG TABLET PO ×2 (00:30→22:08)
[2020-05-19] MEDS: AMPICILLIN 1 GM/NS 50 ML 1 GM/50 ML BAG IVPB ×6 (00:32→21:41)
[2020-05-19] MEDS: IPRATROPIUM BR 0.02% INH SOLN 0.5 MG/2.5 ML VIAL INHALATION ×4 (02:12→20:41)
[2020-05-19] MEDS: ALBUTEROL SULFATE NEB 2.5 MG/0.5 ML INH 5 MG INHALATION ×4 (02:13→20:40)
[2020-05-19] MEDS: CENTRAL LINE FLUSH 10 ML IV PUSH ×3 (04:39→21:37)
[2020-05-19] MEDS: LEVOTHYROXINE SODIUM 75 MCG TABLET PO (06:23)
[2020-05-19 06:33] LABS: Glucose Point of Care 400 (65-105)
[2020-05-19] MEDS: INSULIN ASPART (*BKC) 100 UNITS/ML 8 UNITS SUB-Q (07:09)
[2020-05-19] MEDS: BUDESONIDE RESPULE NEB 0.5 MG/2 ML AMP INHALATION ×2 (07:45→20:40)
[2020-05-19] MEDS: DORNASE ALFA INH SOLN 1 MG/ML 2.5 ML AMP 2.5 MG INHALATION ×2 (07:45→20:40)
[2020-05-19] MEDS: INSULIN GLARGINE (*BKC) 100 UNITS/ML 10 UNITS SUB-Q (08:21)
[2020-05-19] MEDS: FLUTICASONE PROPIONATE 0.05% NA SPR 16 GM BTL (*BKC) 2 SPRAY NASAL ×2 (08:25→17:29)
[2020-05-19] MEDS: POTASSIUM CITRATE 5 MEQ TAB CR 40 MEQ PO ×2 (08:25→21:36)
[2020-05-19] MEDS: BUMETANIDE INJ 2.5 MG/10 ML VIAL 2 MG IV PUSH ×2 (08:26→17:28)
[2020-05-19] MEDS: METOPROLOL TARTRATE 25 MG TABLET PO ×2 (08:26→21:36)
[2020-05-19] MEDS: APIXABAN 2.5 MG TABLET PO ×2 (08:26→21:35)
[2020-05-19] MEDS: ACIDOPHILUS/BULGARICUS CHEWABLE TABLET 2 TABLET PO ×2 (08:26→17:28)
[2020-05-19] MEDS: AMIODARONE HCL 200 MG TABLET PO ×2 (08:26→21:35)
[2020-05-19] MEDS: guaiFENesin 12 HR 600 MG TABCR PO ×2 (08:26→21:36)
[2020-05-19] MEDS: CENTRAL LINE FLUSH 20 ML IV PUSH (09:25)
[2020-05-19 09:43] LABS: Hematocrit 26.2 % (37.0-47.0); Hemoglobin 8.1 g/dL (12.0-15.0); Mean Corpuscular HGB Conc 30.9 g/dl (32-36); Mean Corpuscular Hemoglobin 28.7 pg (26-34); Mean Corpuscular Volume 92.9 fl (80-100); Mean Platelet Volume 12.2 fl (7.4-10.4); Platelet Count Result 170 k/mm3 (150-375); Red Blood Count 2.82 M/mm3 (4.2-5.4); Red Cell Distribution Width 16.3 % (11.5-14.5); White Blood Count 12.3 K/mm3 (4.5-10.0)
[2020-05-19 09:52] LABS: Anion Gap 8 mmol/L (8-16); Blood Urea Nitrogen 28 mg/dL (7-17); Calcium 8.3 mg/dL (8.4-10.2); Carbon Dioxide 38 mmol/L (22-30); Chloride 96 mmol/L (98-107); Estimated Glomerular Filt Rate 43; Glucose 339 mg/dL (65-105); Magnesium 2.1 mg/dL (1.6-2.3); Potassium 3.6 mmol/L (3.4-5.0); Sodium 142 mmol/L (137-145)
--- NOTE | 2020-05-19 10:32 | PM.IMPN ---
Progress Note: A&P Assessment and Plan (1) Anxiety: Code(s): F41.9 - Anxiety disorder, unspecified Status: Acute Assessment and Plan: Ativan as scheduled pt is not anxious today. 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 patient was still sounds quite congested and her urine output was poor, increased the Bumex 2 mg IV b.i.d. and was give Bumex 1mg IV dose, on 05/18 Patient was still complaining of being short of breath unable to expotorte phlegm, patient's lung sounded quite congested and has a harsh breath sounds, patient 3+ lower extremity edema, and increased her Bumex to 2mg IV BID, gave patient one time dose of Solu-Medrol 125 mg IV, pulmozyme and placed the patient on 1200 cc fluid restriction, today 05/19 spoke with her nurse patient is incontinent unable to assess urine output, however patient urine output is much improved, today patient states feeling better not a short of breath and congestive currently patient is working with physical therapy, overall patient's symptoms have improved will continue present managed patient will complete her IV antibiotic on May 22 and then will discharge the patient home. (2) Endocarditis: Onset Date: ~04/2020 Code(s): I38 - Endocarditis, valve unspecified Status: Acute Assessment and Plan: Continue IV ampiciilin and iv rocephin, pt needs to continue on her 6 week dose for endocarditis, possible cause for her vol overload, blood culture is negative to date (3) CHF exacerbation: Code(s): I50.9 - Heart failure, unspecified Status: Acute Assessment and Plan: Continue diuresis with Bumex, CXr shows pulmonary edema from 05/12 will rpt tomorrow. hopeful discharge in next 1-3 days time. (4) Chronic respiratory failure with hypoxia, on home oxygen therapy: Code(s): J96.11 - Chronic respiratory failure with hypoxia; Z99.81 - Dependence on supplemental oxygen Status: Acute Assessment and Plan: Continue oxygen at 4 liters (5) Chronic obstructive pulmonary disease: Code(s): J44.9 - Chronic obstructive pulmonary disease, unspecified Status: Chronic Assessment and Plan: Pt is on breathing treatment and oral steroids (6) Leukocytosis: Code(s): D72.829 - Elevated white blood cell count, unspecified Status: Acute Assessment and Plan: ? Secondary to endocarditis ? secondary to steroids in the past, continuing to monitor. 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 patient was still sounds quite congested and her urine output was poor, increased the Bumex 2 mg IV b.i.d. and was give Bumex 1mg IV dose,
[2020-05-19 11:33] LABS: Glucose Point of Care 358 (65-105)
[2020-05-19] MEDS: INSULIN ASPART (*BKC) 100 UNITS/ML SUB-Q ×2 (11:45→17:22)
[2020-05-19 16:53] LABS: Glucose Point of Care 276 (65-105)
[2020-05-19] MEDS: INSULIN GLARGINE (*BKC) 100 UNITS/ML 15 UNITS SUB-Q (21:41)
[2020-05-19 22:38] LABS: Glucose Point of Care 256 (65-105)
[2020-05-20] VITALS (13 sets, daily range): BP systolic 105–109; BP diastolic 42–54; PULSE 76–112; RESP 16–22; TEMP 36.1–36.8; O2SAT 94–100
[2020-05-20] MEDS: AMPICILLIN 1 GM/NS 50 ML 1 GM/50 ML BAG IVPB ×6 (01:14→21:09)
[2020-05-20] MEDS: IPRATROPIUM BR 0.02% INH SOLN 0.5 MG/2.5 ML VIAL INHALATION ×4 (02:03→20:45)
[2020-05-20] MEDS: ALBUTEROL SULFATE NEB 2.5 MG/0.5 ML INH 5 MG INHALATION ×4 (02:03→20:42)
[2020-05-20] MEDS: CENTRAL LINE FLUSH 10 ML IV PUSH ×3 (05:12→20:25)
[2020-05-20] MEDS: LEVOTHYROXINE SODIUM 75 MCG TABLET PO (05:13)
[2020-05-20] MEDS: LORazepam (*CRX) 0.5 MG TABLET PO (05:13)
[2020-05-20 05:36] LABS: Hemoglobin 8.2 g/dL (12.0-15.0); Mean Corpuscular HGB Conc 30.4 g/dl (32-36); Mean Corpuscular Hemoglobin 28.2 pg (26-34); Mean Corpuscular Volume 92.8 fl (80-100); Mean Platelet Volume 12.3 fl (7.4-10.4); Platelet Count Result 171 k/mm3 (150-375); Red Blood Count 2.91 M/mm3 (4.2-5.4); Red Cell Distribution Width 16.4 % (11.5-14.5); White Blood Count 14.1 K/mm3 (4.5-10.0)
[2020-05-20] MEDS: BUDESONIDE RESPULE NEB 0.5 MG/2 ML AMP INHALATION ×2 (08:03→20:45)
[2020-05-20] MEDS: DORNASE ALFA INH SOLN 1 MG/ML 2.5 ML AMP 2.5 MG INHALATION ×2 (08:07→20:46)
[2020-05-20 08:21] LABS: Glucose Point of Care 162 (65-105)
[2020-05-20 08:27] LABS: Anion Gap 3 mmol/L (8-16); Blood Urea Nitrogen 30 mg/dL (7-17); Calcium 8.5 mg/dL (8.4-10.2); Carbon Dioxide 39 mmol/L (22-30); Chloride 98 mmol/L (98-107); Estimated Glomerular Filt Rate 39; Glucose 219 mg/dL (65-105); Potassium 4.5 mmol/L (3.4-5.0); Sodium 140 mmol/L (137-145)
[2020-05-20] MEDS: BUMETANIDE INJ 2.5 MG/10 ML VIAL 2 MG IV PUSH ×2 (08:34→17:19)
[2020-05-20] MEDS: POTASSIUM CITRATE 5 MEQ TAB CR 40 MEQ PO ×2 (08:34→20:23)
[2020-05-20] MEDS: guaiFENesin 12 HR 600 MG TABCR PO ×2 (08:34→20:23)
[2020-05-20] MEDS: ACIDOPHILUS/BULGARICUS CHEWABLE TABLET 2 TABLET PO ×2 (08:34→17:19)
[2020-05-20] MEDS: METOPROLOL TARTRATE 25 MG TABLET PO ×2 (08:34→20:23)
[2020-05-20] MEDS: APIXABAN 2.5 MG TABLET PO ×2 (08:34→20:23)
[2020-05-20] MEDS: AMIODARONE HCL 200 MG TABLET PO ×2 (08:34→20:23)
[2020-05-20] MEDS: FLUTICASONE PROPIONATE 0.05% NA SPR 16 GM BTL (*BKC) 2 SPRAY NASAL ×2 (08:34→17:19)
[2020-05-20 11:38] LABS: Glucose Point of Care 203 (65-105)
[2020-05-20] MEDS: INSULIN ASPART (*BKC) 100 UNITS/ML SUB-Q (12:05)
--- NOTE | 2020-05-20 12:35 | PM.IMPN ---
Progress Note: A&P Assessment and Plan (1) Anxiety: Code(s): F41.9 - Anxiety disorder, unspecified Status: Acute Assessment and Plan: Ativan as scheduled pt is not anxious today. 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 patient was still sounds quite congested and her urine output was poor, increased the Bumex 2 mg IV b.i.d. and was give Bumex 1mg IV dose, on 05/18 Patient was still complaining of being short of breath unable to expotorte phlegm, patient's lung sounded quite congested and has a harsh breath sounds, patient 3+ lower extremity edema, and increased her Bumex to 2mg IV BID, gave patient one time dose of Solu-Medrol 125 mg IV, pulmozyme and placed the patient on 1200 cc fluid restriction, today 05/19 spoke with her nurse patient is incontinent unable to assess urine output, however patient urine output is much improved, today patient states feeling better not a short of breath and congestive currently patient is working with physical therapy, overall patient's symptoms have improved will continue present managed patient will complete her IV antibiotic on May 22 and then will discharge the patient home. 05/20/20 12:35 Today patient states feeling tired but denies any shortness of breath chest pain or palpitation, per nursing her urine output is much improved unfortunately patient is incontinent and unable to assess, however lower extremity edema is improving, patient is being treated with Bumex 2 mg b.i.d IV . her kidney function is getting dry, will reduce the Bumex to 1 mg b.i.d. starting tomorrow and will monitor, will continue her IV antibiotics until May 22 at that time patient will have completed her antibiotic course, continue PT OT for the patient and discharge the patient on May 22 (2) Endocarditis: Onset Date: ~04/2020 Code(s): I38 - Endocarditis, valve unspecified Status: Acute Assessment and Plan: Continue IV ampiciilin and iv rocephin, pt needs to continue on her 6 week dose for endocarditis, possible cause for her vol overload, blood culture is negative to date (3) CHF exacerbation: Code(s): I50.9 - Heart failure, unspecified Status: Acute Assessment and Plan: Continue diuresis with Bumex, CXr shows pulmonary edema from 05/12 will rpt tomorrow. hopeful discharge in next 1-3 days time. (4) Chronic respiratory failure with hypoxia, on home oxygen therapy: Code(s): J96.11 - Chronic respiratory failure with hypoxia; Z99.81 - Dependence on supplemental oxygen Status: Acute Assessment and Plan: Continue oxygen at 4 liters (5) Chronic obstructive pulmonary disease: Code(s): J44.9 - Chronic obstructive pulmonary disease, unspecified Status: Chronic Assessment and Plan: Pt is on breathing treatment and oral steroids (6) Leukocytosis: Code(s): D72.829 - Elevated white blood cell count, unspecified Status: Acute Assessment and Plan: ? Secondary to endocarditis ? secondary to steroids in the past, continuing to monitor. (7) Elevated ALT measurement: Code(s): R74.01 - Elevation of levels of liver transaminase levels Status: Acute Assessment and Plan: Possible secondary to liver congestion (8) Anemia, chronic disease: Code(s): D63.8 - Anemia in other chronic diseases classified elsewhere Status: Acute Assessment and Plan: Hb is 8.1 Subjective Date/time seen: 05/20/20 12:35 Today patient states feeling t
[2020-05-20 16:15] LABS: Glucose Point of Care 182 (65-105)
[2020-05-20] MEDS: INSULIN GLARGINE (*BKC) 100 UNITS/ML 15 UNITS SUB-Q (20:24)
[2020-05-20] MEDS: traMADol HCL (*CRX) 50 MG TABLET PO (20:28)
[2020-05-20] MEDS: ZOLPIDEM TARTRATE (*CRX) 2.5 MG TABLET PO (20:29)
[2020-05-20 21:16] LABS: Glucose Point of Care 254 (65-105)
[2020-05-21] VITALS (12 sets, daily range): BP systolic 100–121; BP diastolic 44–57; PULSE 80–102; RESP 18–24; TEMP 36.8–37.1; O2SAT 91–99
[2020-05-21] MEDS: AMPICILLIN 1 GM/NS 50 ML 1 GM/50 ML BAG IVPB ×6 (00:19→20:49)
[2020-05-21] MEDS: LORazepam (*CRX) 0.5 MG TABLET PO (00:22)
[2020-05-21] MEDS: IPRATROPIUM BR 0.02% INH SOLN 0.5 MG/2.5 ML VIAL INHALATION ×4 (01:29→20:21)
[2020-05-21] MEDS: ALBUTEROL SULFATE NEB 2.5 MG/0.5 ML INH 5 MG INHALATION ×4 (01:29→20:21)
[2020-05-21] MEDS: CENTRAL LINE FLUSH 10 ML IV PUSH ×3 (05:24→20:54)
[2020-05-21] MEDS: LEVOTHYROXINE SODIUM 75 MCG TABLET PO (05:25)
[2020-05-21 05:48] LABS: Hematocrit 28.4 % (37.0-47.0); Hemoglobin 8.5 g/dL (12.0-15.0); Mean Corpuscular HGB Conc 29.9 g/dl (32-36); Mean Corpuscular Hemoglobin 28.3 pg (26-34); Mean Corpuscular Volume 94.7 fl (80-100); Mean Platelet Volume 12.4 fl (7.4-10.4); Platelet Count Result 131 k/mm3 (150-375); Red Cell Distribution Width 16.5 % (11.5-14.5); White Blood Count 9.2 K/mm3 (4.5-10.0)
[2020-05-21 06:03] LABS: Anion Gap 3.99999 mmol/L (8-16); Blood Urea Nitrogen 23 mg/dL (7-17); Calcium 8.1 mg/dL (8.4-10.2); Carbon Dioxide > 40 mmol/L (22-30); Chloride 97 mmol/L (98-107); Estimated Glomerular Filt Rate 43; Glucose 153 mg/dL (65-105); Potassium 3.6 mmol/L (3.4-5.0); Sodium 141 mmol/L (137-145)
[2020-05-21 07:59] LABS: Glucose Point of Care 124 (65-105)
[2020-05-21] MEDS: POTASSIUM CITRATE 5 MEQ TAB CR 40 MEQ PO ×2 (08:04→20:52)
[2020-05-21] MEDS: AMIODARONE HCL 200 MG TABLET PO ×2 (08:05→20:53)
[2020-05-21] MEDS: APIXABAN 2.5 MG TABLET PO ×2 (08:05→20:53)
[2020-05-21] MEDS: ACIDOPHILUS/BULGARICUS CHEWABLE TABLET 2 TABLET PO ×2 (08:05→17:30)
[2020-05-21] MEDS: guaiFENesin 12 HR 600 MG TABCR PO ×2 (08:06→20:53)
[2020-05-21] MEDS: FLUTICASONE PROPIONATE 0.05% NA SPR 16 GM BTL (*BKC) 2 SPRAY NASAL ×2 (08:06→17:30)
[2020-05-21] MEDS: BUMETANIDE INJ 2.5 MG/10 ML VIAL 2 MG IV PUSH ×2 (08:06→17:30)
[2020-05-21] MEDS: METOPROLOL TARTRATE 25 MG TABLET PO ×2 (08:06→20:53)
[2020-05-21] MEDS: BUDESONIDE RESPULE NEB 0.5 MG/2 ML AMP INHALATION ×2 (09:53→20:21)
[2020-05-21] MEDS: DORNASE ALFA INH SOLN 1 MG/ML 2.5 ML AMP 2.5 MG INHALATION ×2 (10:03→20:20)
[2020-05-21] MEDS: acetaZOLAMIDE TAB 250 MG TABLET PO (10:17)
[2020-05-21] MEDS: POTASSIUM CHLORIDE 20 MEQ TABLET 40 MEQ PO (10:18)
[2020-05-21 11:41] LABS: Glucose Point of Care 216 (65-105)
[2020-05-21] MEDS: INSULIN ASPART (*BKC) 100 UNITS/ML SUB-Q (12:03)
--- NOTE | 2020-05-21 12:08 | PCNWS ---
Weekly nutritional screen. Patient is tolerating current diet with adequate intake. No weight loss reported. No nutritional needs at this time.
--- NOTE | 2020-05-21 12:27 | PM.IMPN ---
Progress Note: A&P Assessment and Plan (1) Anxiety: Code(s): F41.9 - Anxiety disorder, unspecified Status: Acute Assessment and Plan: Ativan as scheduled pt is not anxious today. 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 patient was still sounds quite congested and her urine output was poor, increased the Bumex 2 mg IV b.i.d. and was give Bumex 1mg IV dose, on 05/18 Patient was still complaining of being short of breath unable to expotorte phlegm, patient's lung sounded quite congested and has a harsh breath sounds, patient 3+ lower extremity edema, and increased her Bumex to 2mg IV BID, gave patient one time dose of Solu-Medrol 125 mg IV, pulmozyme and placed the patient on 1200 cc fluid restriction, today 05/19 spoke with her nurse patient is incontinent unable to assess urine output, however patient urine output is much improved, today patient states feeling better not a short of breath and congestive currently patient is working with physical therapy, overall patient's symptoms have improved will continue present managed patient will complete her IV antibiotic on May 22 and then will discharge the patient home. 05/20/20 12:35 Today patient states feeling tired but denies any shortness of breath chest pain or palpitation, per nursing her urine output is much improved unfortunately patient is incontinent and unable to assess, however lower extremity edema is improving, patient is being treated with Bumex 2 mg b.i.d IV . her kidney function is getting dry, will reduce the Bumex to 1 mg b.i.d. starting tomorrow and will monitor, will continue her IV antibiotics until May 22 at that time patient will have completed her antibiotic course, continue PT OT for the patient and discharge the patient on May 22 05/21/20 12:27 Today again patient states feeling tired but denies any shortness of breath chest pain or palpitation, per nursing her urine output is much improved unfortunately patient is incontinent and unable to assess, however lower extremity edema is improving, patient is being treated with Bumex 2 mg b.i.d IV . her kidney function is improving most likely patient is 3rd spacing, starting tomorrow will switch her back to her home dose of Bumex. will continue her IV antibiotics until tomorrow May 22 at that time patient will have completed her antibiotic course, continue PT OT for the patient and discharge the patient on May 22 (2) Endocarditis: Onset Date: ~04/2020 Code(s): I38 - Endocarditis, valve unspecified Status: Acute Assessment and Plan: Continue IV ampiciilin and iv rocephin, pt needs to continue on her 6 week dose for endocarditis, possible cause for her vol overload, blood culture is negative to date (3) CHF exacerbation: Code(s): I50.9 - Heart failure, unspecified Status: Acute Assessment and Plan: Continue diuresis with Bumex, CXr shows pulmonary edema from 05/12 will rpt tomorrow. hopeful discharge in next 1-3 days time. (4) Chronic respiratory failure with hypoxia, on home oxygen therapy: Code(s): J96.11 - Chronic respiratory failure with hypoxia; Z99.81 - Dependence on supplemental oxygen Status: Acute Assessment and Plan: Continue oxygen at 4 liters (5) Chronic obstructive pulmonary disease: Code(s): J44.9 - Chronic obstructive pulmonary disease, unspecified Status: Chronic Assessment and Plan: Pt is on breathing treatment and oral steroids (6) Leukocytosis:
[2020-05-21 16:15] LABS: Glucose Point of Care 153 (65-105)
[2020-05-21] MEDS: INSULIN GLARGINE (*BKC) 100 UNITS/ML 15 UNITS SUB-Q (20:55)
[2020-05-21 21:54] LABS: Glucose Point of Care 241 (65-105)
[2020-05-22] VITALS (9 sets, daily range): BP systolic 98–108; BP diastolic 43–63; PULSE 81–96; RESP 18–22; TEMP 36.8–36.9; O2SAT 95–100
[2020-05-22] MEDS: AMPICILLIN 1 GM/NS 50 ML 1 GM/50 ML BAG IVPB ×4 (00:31→13:09)
[2020-05-22] MEDS: IPRATROPIUM BR 0.02% INH SOLN 0.5 MG/2.5 ML VIAL INHALATION ×3 (02:11→14:03)
[2020-05-22] MEDS: ALBUTEROL SULFATE NEB 2.5 MG/0.5 ML INH 5 MG INHALATION ×3 (02:11→14:03)
[2020-05-22] MEDS: LEVOTHYROXINE SODIUM 75 MCG TABLET PO (05:33)
[2020-05-22] MEDS: CENTRAL LINE FLUSH 10 ML IV PUSH ×2 (05:33→13:10)
[2020-05-22 06:13] LABS: Hematocrit 29.8 % (37.0-47.0); Hemoglobin 8.9 g/dL (12.0-15.0); Mean Corpuscular HGB Conc 29.9 g/dl (32-36); Mean Corpuscular Hemoglobin 28.1 pg (26-34); Mean Platelet Volume 12.8 fl (7.4-10.4); Platelet Count Result 126 k/mm3 (150-375); Red Blood Count 3.17 M/mm3 (4.2-5.4); Red Cell Distribution Width 16.3 % (11.5-14.5); White Blood Count 9.3 K/mm3 (4.5-10.0)
[2020-05-22 06:31] LABS: Anion Gap 4 mmol/L (8-16); Blood Urea Nitrogen 18 mg/dL (7-17); Calcium 8.2 mg/dL (8.4-10.2); Carbon Dioxide 38 mmol/L (22-30); Chloride 99 mmol/L (98-107); Estimated Glomerular Filt Rate 39; Glucose 140 mg/dL (65-105); Potassium 3.7 mmol/L (3.4-5.0); Sodium 141 mmol/L (137-145)
[2020-05-22 07:38] LABS: Glucose Point of Care 159 (65-105)
[2020-05-22] MEDS: BUDESONIDE RESPULE NEB 0.5 MG/2 ML AMP INHALATION (08:31)
[2020-05-22] MEDS: DORNASE ALFA INH SOLN 1 MG/ML 2.5 ML AMP 2.5 MG INHALATION (08:33)
[2020-05-22] MEDS: APIXABAN 2.5 MG TABLET PO (10:00)
[2020-05-22] MEDS: POTASSIUM CITRATE 5 MEQ TAB CR 40 MEQ PO (10:00)
[2020-05-22] MEDS: ACIDOPHILUS/BULGARICUS CHEWABLE TABLET 2 TABLET PO (10:00)
[2020-05-22] MEDS: AMIODARONE HCL 200 MG TABLET PO (10:01)
[2020-05-22] MEDS: BUMETANIDE INJ 2.5 MG/10 ML VIAL 2 MG IV PUSH (10:01)
[2020-05-22] MEDS: guaiFENesin 12 HR 600 MG TABCR PO (10:01)
[2020-05-22] MEDS: METOPROLOL TARTRATE 25 MG TABLET PO (10:01)
[2020-05-22] MEDS: FLUTICASONE PROPIONATE 0.05% NA SPR 16 GM BTL (*BKC) 2 SPRAY NASAL (10:01)
[2020-05-22 11:20] LABS: Alanine Aminotransferase 33 U/L (4-35); Albumin Level 2.7 g/dL (3.5-5.1); Alkaline Phosphatase 107 U/L (38-126); Aspartate Amino Transferase 24 U/L (14-36); Bilirubin,Total 0.6 mg/dL (0.2-1.3)
[2020-05-22 11:40] LABS: Glucose Point of Care 220 (65-105)
[2020-05-22 12:12] LABS: Hepatitis B Surface Antigen Negative (Negative)
[2020-05-22 12:18] LABS: HAV RESULT Negative (Negative); Hepatitis B Core IgM Result Negative (Negative)
[2020-05-22 12:29] LABS: Hepatitis C Virus Antibody Negative (Negative)
[2020-05-22 12:42] LABS: Glucose Point of Care 204 (65-105)
[2020-05-22] MEDS: INSULIN ASPART (*BKC) 100 UNITS/ML SUB-Q (13:09)
--- NOTE | 2020-05-22 15:04 | PM.DS ---
DS: Admitting Diagnosis Admitting Diagnosis Admitting Diagnosis: Leukocytosis/lactic acidosis DS: Discharge Diagnosis Discharge Diagnosis (1) CHF exacerbation: Code(s): I50.9 - Heart failure, unspecified Status: Acute Assessment and Plan: -----Pt presented to the ED for elevated WBC from outpatient draw while she was receiving abx for endocarditis outpatient. At that time she also had complaints of SOB ( was on a steroid ryena) with a CXR showing woresning pulmonary edema. Pts lactic acid was elevated. She was admitted and initially started on fluids due to lactic acidosis and WBC but no new infection was found. She became more SOB and required IV bumex for several days. The day of discharge she had improvement in her CXR but did show mild pulmonary edema. She is to continue her bumex at her home dose and f/u with her pcp and stna next week. Pt is on her 4L of home o2. (2) Anxiety: Code(s): F41.9 - Anxiety disorder, unspecified Status: Acute Assessment and Plan: Improved. (3) Endocarditis: Onset Date: ~04/2020 Code(s): I38 - Endocarditis, valve unspecified Status: Acute Assessment and Plan: -----Pt finished her IV abx here and midline was removed. Blood cultures negative. Vitals stable (4) Chronic respiratory failure with hypoxia, on home oxygen therapy: Code(s): J96.11 - Chronic respiratory failure with hypoxia; Z99.81 - Dependence on supplemental oxygen Status: Acute Assessment and Plan: -----Continue oxygen at 4 liters (5) Chronic obstructive pulmonary disease: Code(s): J44.9 - Chronic obstructive pulmonary disease, unspecified Status: Chronic Assessment and Plan: -----Improved (6) Leukocytosis: Code(s): D72.829 - Elevated white blood cell count, unspecified Status: Acute Assessment and Plan: -----Improved, likely d/t endocarditis and steroids at home. (7) Elevated ALT measurement: Code(s): R74.01 - Elevation of levels of liver transaminase levels Status: Acute Assessment and Plan: -----resolved. could be due to infection or congestion. (8) Anemia, chronic disease: Code(s): D63.8 - Anemia in other chronic diseases classified elsewhere Status: Acute Assessment and Plan: ------hgb stable. DS: Summary Hospital Course Reason for hospitalization: Leukocytosis, elevated lactic Hospital Course: Patient is an 84-year-old female who presented emergency room for elevated white blood cell count on IV antibiotics for endocarditis. Patient was found have an elevated lactic acid of 3.6 on admission but improved with IV hydration. No new infection was apparent. UA was not suspicious for UTI and chest x-ray looked more like pulmonary edema verses pneumonia. Patient was admitted to the hospitalist service and blood cultures were drawn which ended up being negative. Fluids were stopped once the patient got short of breath and she required many days of IV Bumex. While she was here she finished her IV antibiotics for endocarditis and her white blood cell count returned to normal and her vitals were stable. There was no signs of worsening infection and the patient felt much better the day of discharge. A repeat chest x-ray showed improvement in her edema and she was on her home 4 L of oxygen. She was continued on her home diuretic therapy and to follow-up with her primary care physician and Cardiology closely outpatient to ensure she does not need any further adjustments in her diuretics. The day of discharge the patient was educated about the worrisome signs and symptoms to come back to the emergency room for and the patient was discharged in stable condition Status at Discharge Overall status at discharge: patient is progressing back to baseline Time Spent with Patient Time attestation: Total time spent providin
== END 2020-05-22 18:03 | disposition home health service (06) | DRG 292 ==
LOC: ANHED 05-13 04:37 → ANH2MED 05-13 05:33
PROVIDERS: Family Medicine; Admitting Provider Internal Medicine; Emergency Provider Emergency Medicine; PCP Internal Medicine; Visit Provider Physician Assistant
DX: I11.0 Hypertensive heart disease with heart failure (principal); I38 Endocarditis, valve unspecified; J96.11 Chronic respiratory failure with hypoxia; I50.33 Acute on chronic diastolic (congestive) heart failure; I48.91 Unspecified atrial fibrillation; J44.9 Chronic obstructive pulmonary disease, unspecified; Z99.81 Dependence on supplemental oxygen; F41.9 Anxiety disorder, unspecified; D63.8 Anemia in other chronic diseases classified elsewhere; E11.9 Type 2 diabetes mellitus without complications; G47.33 Obstructive sleep apnea (adult) (pediatric); E87.5 Hyperkalemia; Z20.828 Contact with and (suspected) exposure to other viral communicable diseases
CPT/HCPCS: 36415; 36600; 71045; 80048; 80053; 80074; 80076; 81001; 82805; 82948; 83605; 83735; 83880; 84132; 85025; 85027; 87040; 87635; 93005; 94640; 96361; 96365; 96366; 96368; 96375; 96376; 97110; 97116; 97161; 97165; 97530; 97535; 99285; A9270; C9803; G0378; J0290; J0696; J1815; J2920; J2930; J7030; U0003